=== PATIENT | female | born 1945 | race Caucasian/White ===

== ENCOUNTER 2018-06-15 23:08 | Emergency (ER) | payer MEDICARE ==
[2018-06-16 00:14] LABS: Absolute Lymphocytes (CBC) 1.6 K/uL (0.7-4.9); Absolute Monocytes 0.7 K/uL (0.1-1.3); Absolute Neutrophil 2.9 K/uL (1.8-8.0); Basophils % 0.9 % (0-1.3); Eosinophils % 2.7 % (0-4.4); Hematocrit 39.3 % (36.0-45.0); Lymphocytes % 30.2 % (15.3-44.8); MPV 7.3 fL (7.6-11.3); Monocytes % 12.6 % (3.3-12.3); Protime INR 1.03; RBC Red Blood Cell Count 4.31 M/uL (3.86-4.86)
[2018-06-16 00:28] LABS: BUN Blood Urea Nitrogen 13 mg/dL (7-18); Bicarbonate 28 mmol/L (21-32); Glucose Level 133 mg/dL (74-106); Magnesium 1.8 mg/dL (1.8-2.4); Potassium 3.8 mmol/L (3.5-5.1); Sodium Level 136 mmol/L (136-145); Troponin (Emerg Dept Use Only) < 0.02 ng/mL (0.0-0.045)
[2018-06-16 00:29] LABS: Urine Bacteria <20 /HPF (<20); Urine Culture Reflex Order NOT NEEDED; Urine RBC NONE SEEN /HPF (NONE SEEN)
[2018-06-16 00:44] LABS: Urine Blood NEGATIVE (NEG); Urine Glucose NEGATIVE (NEG); Urine Protein NEGATIVE (NEG); Urine Specific Gravity <1.005 (1.005-1.030)
--- NOTE | 2018-06-16 01:27 | EDPHYS ---
Physician Documentation [facility] Name: Carol Guillory Age: 72 yrs Sex: Female : 1945 Arrival Date: 06/15/2018 Time: 23:13 Bed 15 Private MD: Fabiano Campoverde C ED Physician Tomás Rader HPI: 06/15 23:59 This 72 yrs old Female presents to ER via Ambulatory with complaints of Blood snw Pressure Problem, Anxiety. 23:59 Onset: The symptoms/episode began/occurred gradually, and became persistent. Associated snw signs and symptoms: Pertinent positives: anxiety, blood pressure complaints, feels unease in her stomach that waxes and wanes. Modifying factors: The patient symptoms are alleviated by activity, reading, "not thinking about it". The patient has experienced similar episodes in the past. It is unknown whether or not the patient has recently seen a physician. Spouse passes away one year ago, a Grandson about six months ago, pt feels she is just having anxiety, pt is having a procedure 06/18/18 (D\\T\\C) that she is "dreading". Historical: - Allergies: 23:15 No Known Allergies; cc3 - Home Meds: 23:15 losartan 100 mg oral tab 1 tab every other day [Active]; pravastatin 20 mg oral tab 1 cc3 tab once daily [Active]; metformin 500 mg Oral tab 1 tab 2 times per day [Active]; metoprolol tartrate 25 mg Oral tab 1 tab 2 times per day [Active]; - PMHx: 23:15 Diabetes - NIDDM; Hypertension; cc3 - PSHx: 23:15 right hand surgery; cc3 - Immunization history:: Adult Immunizations up to date. - Social history:: Smoking status: Patient/guardian denies using tobacco, never smoked. - Ebola Screening: : No symptoms or risks identified at this time. ROS: 06/16 00:01 Constitutional: Negative for fever, chills, and weight loss, Eyes: Negative for injury, snw pain, redness, and discharge, ENT: Negative for injury, pain, and discharge, Neck: Negative for injury, pain, and swelling. Respiratory: Negative for shortness of breath, cough, wheezing, and pleuritic chest pain. Back: Negative for injury and pain, : Negative for injury, bleeding, discharge, and swelling, MS/Extremity: Negative for injury and deformity, Skin: Negative for injury, rash, and discoloration, Neuro: Negative for headache, weakness, numbness, tingling, and seizure. Cardiovascular: Positive for palpitations. Abdomen/GI: Positive for cramping and "unease". Exam: 00:02 Constitutional: This is a well developed, well nourished patient who is awake, alert, snw and in no acute distress. Head/Face: Normocephalic, atraumatic. Eyes: Pupils equal round and reactive to light, extra-ocular motions intact. Lids and lashes normal. Conjunctiva and sclera are non-icteric and not injected. Cornea within normal limits. Periorbital areas with no swelling, redness, or edema. ENT: Nares patent. No nasal discharge, no septal abnormalities noted. Tympanic membranes are normal and external auditory canals are clear. Oropharynx with no redness, swelling, or masses, exudates, or evidence of obstruction, uvula midline. Mucous membranes moist. Neck: Trachea midline, no thyromegaly or masses palpated, and no cervical lymphadenopathy. Supple, full range of motion without nuchal rigidity, or vertebral point tenderness. No Meningismus. Chest/axilla: Normal chest wall appearance and motion. Nontender with no deformity. No lesions are appreciated. Cardiovascular: Regular rate and rhythm with a normal S1 and S2. No gallops, murmurs, or rubs. Normal PMI, no JVD. No pulse deficits. Respiratory: Lungs have equal breath sounds bilaterally, clear to auscultation and percussion. No rales, rhonchi or wheezes noted. No increased work of breathing, no retractions or nasal flaring. Abdomen/GI: Soft, non-tender, with normal bowel sounds. No distension or tympany. No guarding or rebound. No evidence of tenderness throughout. Back: No spinal tenderness. No costovertebral tenderness. Full range of motion. Skin: Warm, dry with normal turgor. Normal color with no rashes, no lesions, and no evidence of cellulitis. MS/ Extremity: Pulses equal, no cyanosis. Neurovascular intact. Full, normal range of motion. Neuro: Awake and alert, GCS 15, oriented to person, place, time, and situation. Cranial nerves II-XII grossly intact. Motor strength 5/5 in all extremities. Sensory grossly intact. Cerebellar exam normal. Normal gait. Psych: Awake, alert, with orientation to person, place and time. Behavior, mood, and affect are within normal limits. Vital Signs: 06/15 23:15 BP 170 / 80; Pulse 79; Resp 17 S; Temp 98.8(O); Pulse Ox 99% on R/A; Weight 61.23 kg cc3 (R); Height 5 ft. 6 in. (167.64 cm) (R); 06/16 00:16 BP 167 / 82; Pulse 77; Resp 18 S; Pulse Ox 99% on R/A; cc3 01:20 BP 167 / 63; Pulse 81; Resp 17 S; Pulse Ox 99% on R/A; cc3 06/15 23:15 Body Mass Index 21.79 (61.23 kg, 167.64 cm) cc3 MDM: 06/15 23:37 Patient medically screened. snw 06/16 01:27 Data reviewed: vital signs, nurses notes. Data interpreted: Pulse oximetry: on room air snw is 99 %. Interpretation: normal. Counseling: I had a detailed discussion with the patient and/or guardian regarding: the historical points, exam findings, and any diagnostic results supporting the discharge/admit diagnosis, the presence of at least one elevated blood pressure reading (>120/80) during this emergency department visit, lab results, radiology results, the need for outpatient follow up, to return to the emergency department if symptoms worsen or persist or if there are any questions or concerns that arise at home. Special discussion: Based on the patient's history, exam, and Dx evaluation, there is no indication for emergent intervention or inpatient Tx. It is understood by the patient/guardian that if the Sx's persist or worsen they need to return immediately for re-evaluation. Based on the history and exam findings, there is no indication for further emergent testing or inpatient evaluation. I discussed with the patient/guardian the need to see the primary care provider for further evaluation of the symptoms. 06/15 23:29 Order name: Basic Metabolic Panel; Complete Time: 00:32 snw 06/15 23:29 Order name: CBC with Diff; Complete Time: 00:20 snw 06/15 23:29 Order name: Magnesium; Complete Time: 00:32 snw 06/15 23:29 Order name: PT-INR; Complete Time: 00:20 snw 06/15 23:29 Order name: Troponin (emerg Dept Use Only); Complete Time: 00:32 snw 06/15 23:29 Order name: Urine Microscopic Only; Complete Time: 00:32 snw 06/15 23:29 Order name: XRAY Chest (1 view) snw 06/15 23:29 Order name: EKG; Complete Time: 23:30 snw 06/15 23:29 Order name: Cardiac monitoring; Complete Time: 23:33 snw 06/15 23:29 Order name: EKG - Nurse/Tech; Complete Time: 00:18 snw 06/15 23:29 Order name: IV Saline Lock; Complete Time: 00:01 snw 06/15 23:29 Order name: Labs collected and sent; Complete Time: 00:01 snw 06/15 23:29 Order name: O2 Per Protocol; Complete Time: 23:34 snw 06/16 00:34 Order name: Urine Dipstick--Ancillary (enter results); Complete Time: 00:46 mw2 06/15 23:29 Order name: O2 Sat Monitoring; Complete Time: 23:34 snw Administered Medications: No medications were administered Disposition: 02:28 Co-signature as Attending Physician, Tomás Rader MD. garret Disposition: 06/16/18 01:26 Discharged to Home. Impression: Essential (primary) hypertension, Anxiety disorder, unspecified. - Condition is Stable. - Discharge Instructions: Hypertension, Generalized Anxiety Disorder, DASH Eating Plan, Managing Your Hypertension. - Medication Reconciliation Form, Thank You Letter, Antibiotic Education, Prescription Opioid Use form. - Follow up: Fabiano Campoverde MD; When: 1 week; Reason: Recheck today's complaints, Continuance of care, Re-evaluation by your physician. Follow up: Emergency Department; When: As needed; Reason: Worsening of condition. Signatures: Dispatcher [employer] Tomás Fonseca MD MD pkMena Heard, HAIRSPRING VIBRATOR-C HAIRSPRING VIBRATOR-Csnw Lexy Loyola cc3 Corrections: (The following items were deleted from the chart) 00:02 06/15 23:59 Spouse passes away one year ago, a Grandson about six months ago, pt snw feels she is just having anxiety. snw 12/24 01:44 01:26 06/16/2018 01:26 Discharged to Home. Impression: Essential (primary) cc3 hypertension; Anxiety disorder, unspecified. Condition is Stable. Forms are Medication Reconciliation Form, Thank You Letter, Antibiotic Education, Prescription Opioid Use. Follow up: A Campoverde; When: 1 week; Reason: Recheck today's complaints, Continuance of care, Re-evaluation by your physician. Follow up: Emergency Department; When: As needed; Reason: Worsening of condition. snw
--- NOTE | 2018-06-16 01:27 | ER ---
Nurse's Notes [facility] Name: Carol Guillory Age: 72 yrs Sex: Female : 1945 Arrival Date: 06/15/2018 Time: 23:13 Bed 15 Private MD: Fabiano Campoverde C Diagnosis: Essential (primary) hypertension;Anxiety disorder, unspecified Presentation: 06/15 23:15 Presenting complaint: Patient states: she feels anxious about her undescribable gastric cc3 upset just above her umbilical area that's been intermittently going on since the past week. Transition of care: patient was not received from another setting of care. Onset of symptoms was June 15, 2018. Risk Assessment: Do you want to hurt yourself or someone else? Patient reports no desire to harm self or others. Initial Sepsis Screen: Does the patient meet any 2 criteria? No. Patient's initial sepsis screen is negative. Does the patient have a suspected source of infection? No. Patient's initial sepsis screen is negative. Care prior to arrival: None. 23:15 Method Of Arrival: Ambulatory cc3 23:15 Acuity: MARCELA 3 cc3 Triage Assessment: 23:15 General: Appears in no apparent distress. comfortable, Behavior is calm, cooperative, cc3 appropriate for age. Pain: Denies pain. EENT: No signs and/or symptoms were reported regarding the EENT system. Neuro: Level of Consciousness is awake, alert, obeys commands, Oriented to person, place, time, situation, Appropriate for age. Cardiovascular: Denies chest pain, Patient's skin is warm and dry. Respiratory: Airway is patent Respiratory effort is even, unlabored, Respiratory pattern is regular, symmetrical. GI: Abdomen is round non-distended. : No signs and/or symptoms were reported regarding the genitourinary system. Derm: No signs and/or symptoms reported regarding the dermatologic system. Musculoskeletal: Circulation, motion, and sensation intact. Range of motion: intact in all extremities. Historical: - Allergies: 23:15 No Known Allergies; cc3 - Home Meds: 23:15 losartan 100 mg oral tab 1 tab every other day [Active]; pravastatin 20 mg oral tab 1 cc3 tab once daily [Active]; metformin 500 mg Oral tab 1 tab 2 times per day [Active]; metoprolol tartrate 25 mg Oral tab 1 tab 2 times per day [Active]; - PMHx: 23:15 Diabetes - NIDDM; Hypertension; cc3 - PSHx: 23:15 right hand surgery; cc3 - Immunization history:: Adult Immunizations up to date. - Social history:: Smoking status: Patient/guardian denies using tobacco, never smoked. - Ebola Screening: : No symptoms or risks identified at this time. Screenin:15 Abuse screen: Denies threats or abuse. Denies injuries from another. Nutritional cc3 screening: No deficits noted. Tuberculosis screening: No symptoms or risk factors identified. Fall Risk Ambulatory Aid- None/Bed Rest/Nurse Assist (0 pts). Gait- Normal/Bed Rest/Wheelchair (0 pts) Mental Status- Oriented to own ability (0 pts). Assessment: 23:15 General: see triage assessment. cc3 06/16 00:20 Reassessment: Patient appears in no apparent distress at this time. Patient and/or cc3 family updated on plan of care and expected duration. Pain level reassessed. Patient is alert, oriented x 3, equal unlabored respirations, skin warm/dry/pink. 01:40 Reassessment: Patient appears in no apparent distress at this time. Patient and/or cc3 family updated on plan of care and expected duration. Pain level reassessed. Patient is alert, oriented x 3, equal unlabored respirations, skin warm/dry/pink. JORDEN San discharged home the patient, no prescription given. IV cannula removed and patient left ER vitally stable and ambulatory. Vital Signs: 06/15 23:15 BP 170 / 80; Pulse 79; Resp 17 S; Temp 98.8(O); Pulse Ox 99% on R/A; Weight 61.23 kg cc3 (R); Height 5 ft. 6 in. (167.64 cm) (R); 06/16 00:16 BP 167 / 82; Pulse 77; Resp 18 S; Pulse Ox 99% on R/A; cc3 01:20 BP 167 / 63; Pulse 81; Resp 17 S; Pulse Ox 99% on R/A; cc3 06/15 23:15 Body Mass Index 21.79 (61.23 kg, 167.64 cm) 3 ED Course: 06/15 23:13 Patient arrived in ED. am2 23:13 Fabiano Campoverde MD is Private Physician. am2 23:14 Lexy Loyola is Primary Nurse. cc3 23:15 Arm band placed on right wrist. cc3 23:15 Patient has correct armband on for positive identification. Bed in low position. Call cc3 light in reach. Side rails up X 1. fitting room operator on. Pulse ox on. NIBP on. 23:23 Mena Shankar FNP-C is PHCP. snw 23:23 Tomás Rader MD is Attending Physician. snw 23:38 Triage completed. cc3 23:50 Inserted saline lock: 20 gauge in right antecubital area, using aseptic technique. cc3 Blood collected. 06/16 00:04 Radiology exam delayed due to IV insertion attempt and/or patient not having kw appropriate IV at this time. 00:04 X-ray completed. Portable x-ray completed in exam room. Patient tolerated procedure kw well. 00:10 XRAY Chest (1 view) In Process Unspecified. EDMS 01:25 Fabiano Campoverde MD is Referral Physician. snw 01:29 IV discontinued, intact, bleeding controlled, No redness/swelling at site. Pressure gm dressing applied. 01:40 No provider procedures requiring assistance completed. cc3 01:40 IV discontinued, intact, bleeding controlled, No redness/swelling at site. Pressure cc3 dressing applied. Administered Medications: No medications were administered Outcome: 01:26 Discharge ordered by . snw 01:40 Discharged to home ambulatory. cc3 01:40 Condition: stable 01:40 Discharge instructions given to patient, Instructed on discharge instructions, follow up and referral plans. Demonstrated understanding of instructions, follow-up care. 01:44 Patient left the ED. cc3 Signatures: Dispatcher [employer] EDMS Mena Shankar FNP-C MARGARINE MAKER-CsnCharlette Palumbo Amanda am2 Lexy Loyola cc3 Dionne Marte gm
--- NOTE | 2018-06-16 07:54 | EKG ---
Test Date: 2018-06-16 Test Time: 00:08:08 Reception Clerk: TACO MEASUREMENT RESULTS: Intervals: Rate: 70 IL: 142 QRSD: 78 QT: 392 QTc: 423 Gatzke: P: 76 IL: 142 QRS: 28 T: 47 INTERPRETIVE STATEMENTS: Normal sinus rhythm Normal ECG Compared to ECG 01/14/2003 13:48:00 ST (T wave) deviation no longer present Electronically Signed On 06-16-18 07:53:49 ORGANIZATIONAL EFFECTIVENESS CONSULTANT by Jose A Brennan
--- NOTE | 2018-06-16 08:08 | RAD REPORT ---
EXAM DESCRIPTION: RAD - Chest Single View - 06/16/2018 12:18 am CLINICAL HISTORY: Cough and congestion COMPARISON: None. TECHNIQUE: AP portable chest image was obtained 2359 hours . FINDINGS: No focal lung parenchymal mass or infiltrate. Failure and volume overload are not suspecte d. Interstitial markings are mildly prominent suspected to be baseline. Heart and vasculature are nor mal. No measurable pleural effusion and no pneumothorax. No acute bony abnormality seen. No acute aor tic findings suspected. IMPRESSION: No focal lung parenchymal process. Mild prominence of the interstitial markings favored to be baseline. Interstitial edema or infiltrate are less likely.
== END 2018-06-16 01:44 | disposition home or self-care (01) ==
LOC: ER 23:08
DX: I10 Essential (primary) hypertension (principal); F41.9 Anxiety disorder, unspecified; E11.9 Type 2 diabetes mellitus without complications; Z79.84 Long term (current) use of oral hypoglycemic drugs; Z79.899 Other long term (current) drug therapy
CPT/HCPCS: 36415; 71045; 80048; 81003; 81015; 83735; 84484; 85025; 85610; 93005; 99284

== ENCOUNTER 2018-06-18 06:23 | Day surgery (SDC) | payer MEDICARE ==
[2018-06-18] MEDS ORDERED: FENTANYL CITR 100 MCG/2 ML ONE (07:04)
[2018-06-18] MEDS ORDERED: MIDAZOLAM HCL 2 MG/2 ML INJ ONE (07:05)
[2018-06-18] MEDS ORDERED: PROPOFOL 200 MG/20 ML VIAL IV ONE ×2 (07:05→08:23)
[2018-06-18] MEDS ORDERED: LIDOCAINE 1% MPF 2 ML AMPULE ONE (07:07)
[2018-06-18] MEDS ORDERED: NA CHLORIDE 0.9% 1,000 ML ONE ×2 (07:07→07:14)
[2018-06-18] MEDS ORDERED: LIDOCAINE 1.5% W/EPI AMP 5 ML ONE (07:32)
--- NOTE | 2018-06-18 11:36 | OP ---
Date of Procedure: 06/18/2018 Surgeon: Sepideh Howard MD Preoperative Diagnosis: Postmenopausal bleeding. Postoperative Diagnoses: Postmenopausal bleeding and endometrial polyps x3. Procedures Performed: Operative hysteroscopy, polypectomy with scissors x3 and dilation and curettag e. Anesthesia: MAC plus paracervical block. Specimens: Polyps and scant endometrial curettings. Complications: None. Drains: None. Condition: Stable. No assistance. Estimated Blood Loss: Minimal. Findings: Smallest polyp in the posterior wall close to the internal os, left lateral wall polyp and the largest at the junction of the fundus in the posterior wall. All polyps were removed completely . Endometrium appeared to be unremarkable and scant. She has significant posterior wall defect, stage I with point Bp +1, generalized 4 cm. The patient is a 72-year-old with postmenopausal bleeding. Ultrasound showed thickened endometrium. She was consented for a cavity evaluation and sampling. Description Of Procedure: After being re-consented today, she was taken to the OR, placed in a supin e fashion on the operating table and MAC was given, placed in the dorsal lithotomy position using All en stirrups. After time-out was done, pelvic exam performed. Pop-Q as above. Uterus small and with traction, point C top of the uterus came down to -2. This anterior lip was injected with 1.5% lidocaine mixed with 1:100,000 epinephrine 5 cc. Then, at 4 and 8 o'clock positions of the cervical vaginal junction 5 cc each was injected. Two Allis clamps w ere placed on the anterior lip. Prep x3 with Betadine was done. A diagnostic SlimLine scope was ollie roel through the cervical canal and traversed into the uterine cavity under direct visualization with normal saline and 30-degree lens. Polyps were seen as dictated above. The diagnostic sheath was aubrey nged to an operative sheath. Scissors were placed through this and the base of the polyp was cut on the lowest 1. This was retrieved with the help of a polyp forceps, then the second polyp was cut at its base. This was the thickest and was attached on the wider base to the myometrium. Once the enti re polyp was released, it was retrieved with the polyp forceps as before. The third one was cut as w ell. This was most difficult 1 to release due to the position of the attachment. Once the release w as done, the last piece of it had to be released with the help of the polyp graspers through the scop e and once this was detached, then the entire polyp was retrieved. This is the largest, about 1.5 cm . There is no irregularity in the lining of the endometrium. Both tubal ostia were visualized. The cavity was well visualized and pictures taken. Scope removed. Endometrial curettings performed wit h a #2 curette. All the instruments were removed. Instrument, needle, and sponge counts were done a nd were correct at the end of the case. The patient tolerated the procedure well. She was recovered from anesthesia in the OR and taken to [facility] Day Surgery. She will follow up with me in 1 week. GREER/VELVET Voice ID: [id number] Report ID: [id number]
== END 2018-06-18 09:21 | disposition home or self-care (01) ==
LOC: OR 06:23
PROVIDERS: ATTEND Obstetrics & Gynecology
PROC: 0UDB7ZX Extraction of Endometrium, Via Natural or Artificial Opening, Diagnostic (ICD-10-PCS; 2018-06-18)
PROC: 0UB98ZX Excision of Uterus, Via Natural or Artificial Opening Endoscopic, Diagnostic (ICD-10-PCS; principal; 2018-06-18 07:30)
DX: N84.0 Polyp of corpus uteri (principal); N95.0 Postmenopausal bleeding; E11.9 Type 2 diabetes mellitus without complications; E78.00 Pure hypercholesterolemia, unspecified; I10 Essential (primary) hypertension; N32.81 Overactive bladder; Z79.82 Long term (current) use of aspirin; Z79.84 Long term (current) use of oral hypoglycemic drugs; Z79.899 Other long term (current) drug therapy
CPT/HCPCS: 58558; 82962; 88305; J2001 ×2; J2250; J2704 ×2; J3010; J7030 ×2

== ENCOUNTER 2018-06-22 06:41 | Emergency (ER) | payer MEDICARE ==
[2018-06-22 08:02] LABS: Absolute Lymphocytes (CBC) 1.1 K/uL (0.7-4.9); Absolute Monocytes 0.6 K/uL (0.1-1.3); Absolute Neutrophil 7.6 K/uL (1.8-8.0); Basophils % 0.3 % (0-1.3); Eosinophils % 1.3 % (0-4.4); Hematocrit 40.7 % (36.0-45.0); Lymphocytes % 11.9 % (15.3-44.8); MPV 7.2 fL (7.6-11.3); Monocytes % 6.8 % (3.3-12.3); RBC Red Blood Cell Count 4.48 M/uL (3.86-4.86)
[2018-06-22 08:13] LABS: Potassium 3.9 mmol/L (3.5-5.1)
--- NOTE | 2018-06-22 09:08 | EDPHYS ---
Physician Documentation [facility] Name: Carol Guillory Age: 72 yrs Sex: Female : 1945 Arrival Date: 06/22/2018 Time: 06:44 Bed 7 Private MD: Fabiano Campoverde C ED Physician José Miguel Dao HPI: 06/22 07:22 This 72 yrs old Female presents to ER via Ambulatory with complaints of rn Vaginal Bleeding, D\T\C ON SATURDAY. 07:22 The patient presents with vaginal bleeding that is light, with clots. Onset: The rn symptoms/episode began/occurred yesterday. Modifying factors: The symptoms are alleviated by nothing, the symptoms are aggravated by nothing. Severity of symptoms: At their worst the symptoms were mild, in the emergency department the symptoms have improved. The patient has not experienced similar symptoms in the past. The patient has been recently seen by a physician:. Reports had D\T\C performed on 06/18 for vaginal spotting, due to get results tomorrow, bleeding had decreased, had resumed her aspirin, then yesterday had some increased vaginal bleeding, small clots noticed, then this AM when got out of bed had a gush of blood, now improved once again, only has a liner. No dizziness/sob/chest pain/syncope. . Historical: - Allergies: 07:03 No Known Allergies; lp1 - Home Meds: 07:03 losartan 100 mg Oral tab 1 tab Every other day [Active]; metoprolol tartrate 25 mg Oral lp1 tab 1 tab 2 times per day [Active]; pravastatin 20 mg Oral tab 1 tab once daily [Active]; metformin 500 mg Oral tab 1 tab 2 times per day [Active]; - PMHx: 07:03 Diabetes - NIDDM; Hypertension; lp1 - PSHx: 07:03 D \T\ C; lp1 - Immunization history:: Adult Immunizations up to date. - Social history:: Smoking status: Patient/guardian denies using tobacco. - Ebola Screening: : No symptoms or risks identified at this time. - Family history:: not pertinent. - Hospitalizations: : No recent hospitalization is reported. ROS: 07:22 Positive for vaginal bleeding, Negative for urinary symptoms, urinary frequency, rn pelvic pain, flank pain, burning with urination, difficulty urinating, bladder incontinence. 07:22 Constitutional: Negative for fever, chills, and weight loss, Cardiovascular: Negative for chest pain, palpitations, and edema, Respiratory: Negative for shortness of breath, cough, wheezing, and pleuritic chest pain, Abdomen/GI: Negative for abdominal pain, nausea, vomiting, diarrhea, and constipation, Back: Negative for injury and pain, Neuro: Negative for headache, weakness, numbness, tingling, and seizure. Exam: 07:22 Constitutional: This is a well developed, well nourished patient who is awake, alert, rn and in no acute distress. Eyes: No paleness of conjunctiva ENT: MMM Abdomen/GI: soft, non-tender, non-distended MS/ Extremity: Pulses equal, no cyanosis. Neurovascular intact. Full, normal range of motion. Equal circumference. Neuro: Awake and alert, GCS 15, oriented to person, place, time, and situation. Vital Signs: 07:00 BP 164 / 68; Pulse 87; Resp 18; Temp 98.6(O); Pulse Ox 99% on R/A; Weight 61.23 kg; lp1 Height 5 ft. 6 in. (167.64 cm); Pain 0/10; 08:10 BP 135 / 56; Pulse 88; Resp 17; Pulse Ox 99% on R/A; sg 09:05 BP 132 / 60; Pulse 87; Resp 17; Pulse Ox 100% on R/A; sg 07:00 Body Mass Index 21.79 (61.23 kg, 167.64 cm) lp1 MDM: 06:57 Patient medically screened. rn 09:05 Differential diagnosis: malignancy, post-procedural bleeding after polyp removal. Data rn reviewed: vital signs, nurses notes, lab test result(s), and as a result, I will discharge patient. Counseling: I had a detailed discussion with the patient and/or guardian regarding: the historical points, exam findings, and any diagnostic results supporting the discharge/admit diagnosis, lab results, the need for outpatient follow up, to return to the emergency department if symptoms worsen or persist or if there are any questions or concerns that arise at home. Special discussion: I discussed with the patient/guardian in detail that at this point there is no indication for admission to the hospital. It is understood, however, that if the symptoms persist or worsen the patient needs to return immediately for re-evaluation. ED course: Patient now to bathroom a few times, no longer bleeding, contacted Dr. Howard, ok to go home as normal H/H and no longer bleeding. Biopsy results are negative for malignancy. . 06/22 07:08 Order name: CBC with Diff; Complete Time: 08:53 rn 06/22 07:08 Order name: BMP; Complete Time: 08:53 rn 06/22 07:08 Order name: Type And Screen; Complete Time: 08:53 rn 06/22 08:43 Order name: ABO/RH no charge; Complete Time: 08:53 EDMS Administered Medications: No medications were administered Disposition: 06/22/18 09:07 Discharged to Home. Impression: Abnormal uterine and vaginal bleeding, unspecified. - Condition is Stable. - Discharge Instructions: Abnormal Uterine Bleeding. - Medication Reconciliation Form, Thank You Letter, Antibiotic Education, Prescription Opioid Use form. - Follow up: Sepideh Howard MD; When: As needed; Reason: Recheck today's complaints, Re-evaluation by your physician. - Problem is new. - Symptoms have improved. Signatures: Dispatcher [employer] EDMS Kyle Caba RN RN sg José Miguel Dao MD MD rn Pena, Laura, RN RN lp1 Corrections: (The following items were deleted from the chart) 09:16 09:07 06/22/2018 09:07 Discharged to Home. Impression: Abnormal uterine and vaginal sg bleeding, unspecified. Condition is Stable. Forms are Medication Reconciliation Form, Thank You Letter, Antibiotic Education, Prescription Opioid Use. Follow up: Sepideh Howard; When: As needed; Reason: Recheck today's complaints, Re-evaluation by your physician. Problem is new. Symptoms have improved. rn
--- NOTE | 2018-06-22 09:08 | ER ---
Nurse's Notes [facility] Name: Carol Guillory Age: 72 yrs Sex: Female : 1945 Arrival Date: 06/22/2018 Time: 06:44 Bed 7 Private MD: Fabiano Campoverde C Diagnosis: Abnormal uterine and vaginal bleeding, unspecified Presentation: 06/22 06:58 Presenting complaint: Patient states: Had D\T\C procedure by Dr. Howard on 06/18 for lp1 vaginal bleeding; States this morning, large about of vaginal bleeding; Has not had follow-up for results from procedure. Transition of care: patient was not received from another setting of care. Onset of symptoms was June 22, 2018. Risk Assessment: Do you want to hurt yourself or someone else? Patient reports no desire to harm self or others. Initial Sepsis Screen: Does the patient meet any 2 criteria? No. Patient's initial sepsis screen is negative. Does the patient have a suspected source of infection? No. Patient's initial sepsis screen is negative. Care prior to arrival: None. 06:58 Method Of Arrival: Ambulatory lp1 06:58 Acuity: MARCELA 3 lp1 Historical: - Allergies: 07:03 No Known Allergies; lp1 - Home Meds: 07:03 losartan 100 mg Oral tab 1 tab Every other day [Active]; metoprolol tartrate 25 mg Oral lp1 tab 1 tab 2 times per day [Active]; pravastatin 20 mg Oral tab 1 tab once daily [Active]; metformin 500 mg Oral tab 1 tab 2 times per day [Active]; - PMHx: 07:03 Diabetes - NIDDM; Hypertension; lp1 - PSHx: 07:03 D \T\ C; lp1 - Immunization history:: Adult Immunizations up to date. - Social history:: Smoking status: Patient/guardian denies using tobacco. - Ebola Screening: : No symptoms or risks identified at this time. - Family history:: not pertinent. - Hospitalizations: : No recent hospitalization is reported. Screenin:03 Abuse screen: Denies threats or abuse. Denies injuries from another. Nutritional lp1 screening: No deficits noted. Tuberculosis screening: No symptoms or risk factors identified. Fall Risk None identified. Assessment: 07:15 General: Appears in no apparent distress. comfortable, well groomed, well developed, sg well nourished, Behavior is calm, cooperative, appropriate for age. Pain: Complains of pain in suprapubic area Quality of pain is described as crampy. Neuro: No deficits noted. Cardiovascular: Heart tones S1 S2 present Capillary refill is brisk in bilateral fingers Patient's skin is warm and dry. Chest pain is denied. Respiratory: Airway is patent Respiratory effort is even, unlabored, Respiratory pattern is regular, symmetrical. GI: No signs and/or symptoms were reported involving the gastrointestinal system. : Vaginal discharge is bloody, per the pt Reports vaginal bleeding that is bright red, moderate flow. EENT: No signs and/or symptoms were reported regarding the EENT system. Derm: Skin is pale, Skin temperature is warm. Musculoskeletal: No signs and/or symptoms reported regarding the musculoskeletal system. 08:30 Reassessment: Patient appears in no apparent distress at this time. Patient and/or sg family updated on plan of care and expected duration. Pain level reassessed. Patient is alert, oriented x 3, equal unlabored respirations, skin warm/dry/pink. pt family remains at bedside, pt family requesting a snack, pt family given ryan crackers, pt to remain NPO until further notice, pt and pt family stated understanding. Vital Signs: 07:00 BP 164 / 68; Pulse 87; Resp 18; Temp 98.6(O); Pulse Ox 99% on R/A; Weight 61.23 kg; lp1 Height 5 ft. 6 in. (167.64 cm); Pain 0/10; 08:10 BP 135 / 56; Pulse 88; Resp 17; Pulse Ox 99% on R/A; sg 09:05 BP 132 / 60; Pulse 87; Resp 17; Pulse Ox 100% on R/A; sg 07:00 Body Mass Index 21.79 (61.23 kg, 167.64 cm) lp1 ED Course: 06:44 Patient arrived in ED. es 06:45 Fabiano Campoverde MD is Private Physician. es 06:57 José Miguel Dao MD is Attending Physician. rn 07:00 Triage completed. lp1 07:00 Arm band placed on. lp1 07:15 Patient has correct armband on for positive identification. Bed in low position. Call sg light in reach. Side rails up X2. Adult w/ patient. monitor and storage bin tender on. Pulse ox on. NIBP on. Warm blanket given. Head of bed elevated. 07:41 Kyle Caba, RN is Primary Nurse. sg 07:41 Initial lab(s) drawn, by ED staff, sent to lab. T\T\S collected, blood band applied to sg patient. Inserted saline lock: 20 gauge in right antecubital area, using aseptic technique. Blood collected. 08:09 Awaiting lab results. sg 09:07 Sepideh Howard MD is Referral Physician. rn 09:12 No provider procedures requiring assistance completed. IV discontinued, intact, sg bleeding controlled, No redness/swelling at site. Pressure dressing applied. Administered Medications: No medications were administered Outcome: 09:07 Discharge ordered by . rn 09:12 Discharged to home ambulatory, with family. sg 09:12 Condition: good 09:12 Discharge instructions given to patient, family, Instructed on discharge instructions, follow up and referral plans. safety practices, Demonstrated understanding of instructions, follow-up care. 09:16 Patient left the ED. sg Signatures: Kyle Caba, RN RN Priscila Harris Roman, MD MD rn Pena, Laura, RN RN lp1
== END 2018-06-22 09:16 | disposition home or self-care (01) ==
LOC: ER 06:41
DX: N93.9 Abnormal uterine and vaginal bleeding, unspecified (principal); I10 Essential (primary) hypertension; E11.9 Type 2 diabetes mellitus without complications
CPT/HCPCS: 36415; 80048; 85025; 86850; 86900; 86901; 99284

== ENCOUNTER 2020-12-13 12:41 | Observation (INO) | payer MEDICARE, OTHER ==
[2020-12-13 13:18] LABS: Absolute Lymphocytes (CBC) 1.2 K/uL (0.7-4.9); Basophils % 0.5 % (0-1.3); Hematocrit 42.9 % (36.0-45.0); Lymphocytes % 13.8 % (15.3-44.8); MPV 7.4 fL (7.6-11.3); RBC Red Blood Cell Count 4.73 M/uL (3.86-4.86)
[2020-12-13 13:20] LABS: Protime INR 1.06
[2020-12-13 13:39] LABS: ALT/SGPT 28 U/L (12-78); AST/SGOT 22 U/L (15-37); Albumin 3.9 g/dL (3.4-5.0); Alkaline Phosphatase 77 U/L (45-117); BUN Blood Urea Nitrogen 20 mg/dL (7-18); Bicarbonate 31 mmol/L (21-32); Bilirubin Direct 0.1 mg/dL (0-0.2); Bilirubin Total 0.5 mg/dL (0.2-1.0); Glucose Level 173 mg/dL (74-106); NT PRO-BNP 592 pg/mL (<125); Potassium 4.2 mmol/L (3.5-5.1); Protein, Total 7.7 g/dL (6.4-8.2); Sodium Level 135 mmol/L (136-145); Troponin (Emerg Dept Use Only) < 0.02 ng/mL (0.0-0.045)
--- NOTE | 2020-12-13 14:14 | RAD REPORT ---
EXAM DESCRIPTION: RAD - Chest Single View - 12/13/2020 1:17 pm CLINICAL HISTORY: CHEST PAIN COMPARISON: Portable May 2018 TECHNIQUE: AP portable chest image was obtained 12/13/2020 1:17 pm . FINDINGS: No peripheral consolidation or large mass lesions seen. A 7 millimeter rounded nodular den sity in the upper right lung field is present new from the comparison. This is relatively dense and i s favored to be a granuloma. Interstitial markings are prominent but not clearly different. Chronic d isease can mask early edema or infiltrate. Trachea is midline and hilar regions are normal range and stable. Heart size is normal. No vascular engorgement. No measurable pleural effusion and no pneumoth orax. No acute bony abnormality seen. No acute aortic findings suspected. IMPRESSION: No acute cardiopulmonary process suspected. 7 mm nodular density upper right lung field is favored to be granuloma but he is new from 2018. Seria l chest imaging can be utilized to assure stability with the initial follow-up in 3-4 months. Chronic interstitial lung disease similar to comparison. This can potentially mask early edema or inf iltrate.
--- NOTE | 2020-12-13 14:27 | EDPHYS ---
Physician Documentation [facility] Name: Carol Guillory Age: 75 yrs Sex: Female : 1945 Arrival Date: 12/13/2020 Time: 12:44 Bed 19 Private MD: Igor [facility] ED Physician Carlos Wisdom HPI: 12/13 13:28 This 75 yrs old Female presents to ER via Ambulatory with complaints of Chest kb Pain, Headache. 13:28 The patient has elevated blood pressure and discovered this at a physician's office, kb and sent to the emergency department for evaluation. Onset: The symptoms/episode began/occurred yesterday. Associated signs and symptoms: Pertinent positives: headache, "chest pressure, not pain". Severity of symptoms: At its worst the blood pressure was 234 mm Hg, in the emergency department the blood pressure is improved, 178 mm Hg. The patient has not experienced similar symptoms in the past. The patient has been recently seen by a physician: the patient's primary care provider, yesterday. Pt reports she went for her first visit with Dr Costa yesterday and her blood pressure was high. States she was told to check it routinely at home. Last night systolic was 150 and today the systolic has been 170. States she has some chest pressure and a headache that she has been thinking was sinuses. States she has pressure on her chest, but no actual pain. Pt has been taking the same blood pressure medications for years without change. States she normally doesn't check her bp at home. Also reports a history of panic attacks when her nephews are coming to stay because they are small and she is worried the won't be looked after well. States they are coming and she has been anxious about that. . Historical: - Allergies: 12:59 No Known Allergies; iw - Home Meds: 12:58 losartan 100 mg Oral tab 1 tab twice a day [Active]; atenolol 25 mg Oral tab 1 tab 2 iw times per day [Active]; metformin 500 mg Oral Tb24 1 tab once daily [Active]; pravastatin 20 mg oral tab 1 tab once daily [Active]; levothyroxine 50 mcg tab 1 tab once daily [Active]; - PMHx: 12:58 Diabetes - NIDDM; Hypertension; Hypothyroidism; iw - PSHx: 12:58 D \\T\\ C; iw 12:59 cervical polyps removed; iw - Immunization history:: Client reports receiving the 2nd dose of the Covid vaccine. - Social history:: Smoking status: Patient denies any tobacco usage or history of. ROS: 13:28 Constitutional: Negative for fever, chills, and weight loss. kb 13:28 Cardiovascular: Positive for chest pressure. 13:28 Neuro: Positive for headache. 13:28 All other systems are negative. 13:28 Psych: Positive for anxiety. kb Exam: 13:28 Constitutional: This is a well developed, well nourished patient who is awake, alert, kb and in no acute distress. Head/Face: Normocephalic, atraumatic. ENT: Moist Mucous membranes Cardiovascular: Regular rate and rhythm with a normal S1 and S2. No gallops, murmurs, or rubs. No pulse deficits. Respiratory: Respirations even and unlabored. No increased work of breathing, no retractions or nasal flaring. Abdomen/GI: Soft, non-tender. No distention Skin: Warm, dry with normal turgor. Normal color. MS/ Extremity: Pulses equal, no cyanosis. Neurovascular intact. Full, normal range of motion. Neuro: Awake and alert, GCS 15, oriented to person, place, time, and situation. Moves all extremities. Normal gait. Psych: Awake, alert, with orientation to person, place and time. Behavior, mood, and affect are within normal limits. 13:38 ECG was reviewed by the Attending Physician. kb Vital Signs: 12:53 BP 182 / 78; Pulse 72; Resp 16; Temp 98.5; Pulse Ox 98% on R/A; Weight 54.88 kg; Height iw 5 ft. 6 in. (167.64 cm); 13:30 BP 134 / 67; Pulse 66; Resp 17; Pulse Ox 98% on R/A; kg 13:45 BP 161 / 89; Pulse 68; Resp 20; Pulse Ox 97% on R/A; kg 14:00 BP 133 / 57; Pulse 62; Resp 20; Pulse Ox 96% ; kg 14:30 BP 150 / 62; Pulse 60; Resp 20; Pulse Ox 97% on R/A; kg 14:45 BP 107 / 93; Pulse 66; Resp 20; Pulse Ox 98% on R/A; kg 15:30 BP 179 / 78; Pulse 71; Resp 18; Pulse Ox 99% ; kg 16:00 BP 144 / 88; Pulse 70; Resp 20; Pulse Ox 98% ; kg 16:50 BP 153 / 77; Pulse 70; Resp 18; Pulse Ox 98% on R/A; kg 12:53 Body Mass Index 19.53 (54.88 kg, 167.64 cm) iw MDM: 13:00 Patient medically screened. 13:37 Data reviewed: vital signs, nurses notes. Data interpreted: Pulse oximetry: on room air kb is 98 %. Interpretation: normal. 14:21 Counseling: I had a detailed discussion with the patient and/or guardian regarding: the kb historical points, exam findings, and any diagnostic results supporting the discharge/admit diagnosis, lab results, radiology results, the need for further work-up and treatment in the hospital. 14:26 Physician consultation: Ra Rao DO was contacted at 14:26, regarding admission, kb to the telemetry unit. patient's condition, and will see patient in ED, shortly. 12/13 13:00 Order name: Basic Metabolic Panel 12/13 13:00 Order name: CBC with Diff 12/13 13:00 Order name: LFT's 12/13 13:00 Order name: Magnesium 12/13 13:00 Order name: NT PRO-BNP 12/13 13:00 Order name: PT-INR 12/13 13:00 Order name: Troponin (emerg Dept Use Only) 12/13 13:25 Order name: Protime (+INR); Complete Time: 13:38 EDOK 12/13 13:37 Order name: CBC with Automated Diff; Complete Time: 13:38 EDMS 12/13 13:39 Order name: Basic Metabolic Panel; Complete Time: 13:41 EDMS 12/13 13:39 Order name: Liver (Hepatic) Function; Complete Time: 13:41 EDMS 12/13 13:39 Order name: Troponin (Emerg Dept Use Only); Complete Time: 13:41 EDMS 12/13 13:39 Order name: NT PRO-BNP; Complete Time: 13:41 EDMS 12/13 13:39 Order name: Magnesium; Complete Time: 13:41 EDOK 12/13 13:00 Order name: XRAY Chest (1 view) 12/13 13:00 Order name: EKG; Complete Time: 13:01 kb 12/13 13:00 Order name: Cardiac monitoring; Complete Time: 13:34 kb 12/13 13:00 Order name: EKG - Nurse/Tech; Complete Time: 13:34 kb 12/13 13:00 Order name: IV Saline Lock; Complete Time: 13:21 kb 12/13 13:00 Order name: Labs collected and sent; Complete Time: 13:21 kb 12/13 13:00 Order name: O2 Per Protocol; Complete Time: 13:21 kb 12/13 13:00 Order name: O2 Sat Monitoring; Complete Time: 13:21 kb 12/13 14:15 Order name: RAD; Complete Time: 14:17 EDMS EC:38 Rate is 65 beats/min. Rhythm is regular. QRS [place] is Normal. MS interval is normal at kb 140 msec. QRS interval is normal at 74 msec. QT interval is normal at 396 msec. Administered Medications: 14:32 Drug: Aspirin Chewable Tablet 324 mg Route: PO; kg 15:28 Follow up: Response: No adverse reaction kg Disposition: 17:22 Co-signature as Attending Physician, Carlos Wisdom MD I agree with the assessment and kdr plan of care. Disposition: 12/13/20 14:26 Hospitalization ordered by Ra Rao for Observation. Preliminary diagnosis is Chest pain, unspecified. - Bed requested for Telemetry/MedSurg (observation). - Status is Observation. kg - Condition is Stable. - Problem is new. - Symptoms are unchanged. Signatures: Dispatcher [employer] EDOK Leyla Martinez FNP-C FNP-Emilia Núñez RN RN Carlos Wisdom MD MD [facility] Lianet Leonard RN RN Nova Duuqe RN RN kg Corrections: (The following items were deleted from the chart) 13:38 13:28 Pt reports she went for her first visit with Dr Costa yesterday and her blood kb pressure was high. States she was told to check it routinely at home. Last night systolic was 150 and today the systolic has been 170. States she has some chest pressure and a headache that she has been thinking was sinuses. States she has pressure on her chest, but no actual pain. Pt has been taking the same blood pressure medications for years without change. States she normally doesn't check her bp at home. . kb 15:50 14:26 Hospitalization Ordered by Ra Rao DO for Observation. Preliminary dw diagnosis is Chest pain, unspecified. Bed requested for Telemetry/MedSurg (observation). Status is Observation. Condition is Stable. Problem is new. Symptoms are unchanged. kb 17:07 15:50 12/13/2020 14:26 Hospitalization Ordered by Ra Rao DO for Observation. kg Preliminary diagnosis is Chest pain, unspecified. Bed requested for Telemetry/MedSurg (observation). Status is Observation. Condition is Stable. Problem is new. Symptoms are unchanged. dw
--- NOTE | 2020-12-13 14:27 | ER ---
Nurse's Notes [facility] Name: Carol Guillory Age: 75 yrs Sex: Female : 1945 Arrival Date: 12/13/2020 Time: 12:44 Bed 19 Private MD: Fausto Costa Diagnosis: Chest pain, unspecified Presentation: 12/13 12:53 Chief complaint: Patient states: BP has been high, was 234/101 yesterday at PCP office, iw was 158/80 last night, was high again today, took her BP medicine (losartan 50 mg) was still high, her doctor told her to come in it was still high , was also having anxiety. c/o headache, denies dizziness or blurry vision, denies chest pain. Coronavirus screen: At this time, the client does not indicate any symptoms associated with coronavirus-19. Ebola Screen: Patient negative for fever greater than or equal to 101.5 degrees Fahrenheit, and additional compatible Ebola Virus Disease symptoms Patient denies exposure to infectious person. Patient denies travel to an Ebola-affected area in the 21 days before illness onset. No symptoms or risks identified at this time. Initial Sepsis Screen: Does the patient meet any 2 criteria? No. Patient's initial sepsis screen is negative. Does the patient have a suspected source of infection? No. Patient's initial sepsis screen is negative. Risk Assessment: Do you want to hurt yourself or someone else? Patient reports no desire to harm self or others. Onset of symptoms was December 12, 2020. 12:53 Method Of Arrival: Ambulatory iw 12:53 Acuity: MARCELA 3 iw Historical: - Allergies: 12:59 No Known Allergies; iw - Home Meds: 12:58 losartan 100 mg Oral tab 1 tab twice a day [Active]; atenolol 25 mg Oral tab 1 tab 2 iw times per day [Active]; metformin 500 mg Oral Tb24 1 tab once daily [Active]; pravastatin 20 mg oral tab 1 tab once daily [Active]; levothyroxine 50 mcg tab 1 tab once daily [Active]; - PMHx: 12:58 Diabetes - NIDDM; Hypertension; Hypothyroidism; iw - PSHx: 12:58 D \T\ C; iw 12:59 cervical polyps removed; iw - Immunization history:: Client reports receiving the 2nd dose of the Covid vaccine. - Social history:: Smoking status: Patient denies any tobacco usage or history of. Screenin:12 Abuse screen: Denies threats or abuse. Denies injuries from another. Nutritional kg screening: No deficits noted. Tuberculosis screening: No symptoms or risk factors identified. Fall Risk None identified. No fall in past 12 months (0 pts). No secondary diagnosis (0 pts). IV access (20 points). Ambulatory Aid- None/Bed Rest/Nurse Assist (0 pts). Gait- Normal/Bed Rest/Wheelchair (0 pts) Mental Status- Oriented to own ability (0 pts). Total Mcfadden Fall Scale indicates No Risk (0-24 pts). Assessment: 13:10 General: Appears in no apparent distress. Behavior is calm, cooperative, appropriate kg for age, quiet. Pain: Complains of pain in face Pain does not radiate. Pain currently is 3 out of 10 on a pain scale. at worst was 4 out of 10 on a pain scale. level that patient reports is acceptable is 2 out of 10 on a pain scale. Quality of pain is described as aching, dull, Constant Pain began 2-3 days ago. Neuro: Level of Consciousness is awake, alert, obeys commands, Oriented to person, place, time, situation, Appropriate for age Reports headache in entire since 2 days ago. Cardiovascular: No deficits noted. Heart tones S1 S2 Capillary refill < 3 seconds Pulses are 4+ in right radial artery and left radial artery Rhythm is regular. Respiratory: No deficits noted. Respiratory: Airway is patent Trachea midline Respiratory effort is even, unlabored, relaxed, Respiratory pattern is regular, Breath sounds are clear bilaterally. GI: No deficits noted. : No deficits noted. EENT: No deficits noted. Vital Signs: 12:53 BP 182 / 78; Pulse 72; Resp 16; Temp 98.5; Pulse Ox 98% on R/A; Weight 54.88 kg; Height iw 5 ft. 6 in. (167.64 cm); 13:30 BP 134 / 67; Pulse 66; Resp 17; Pulse Ox 98% on R/A; kg 13:45 BP 161 / 89; Pulse 68; Resp 20; Pulse Ox 97% on R/A; kg 14:00 BP 133 / 57; Pulse 62; Resp 20; Pulse Ox 96% ; kg 14:30 BP 150 / 62; Pulse 60; Resp 20; Pulse Ox 97% on R/A; kg 14:45 BP 107 / 93; Pulse 66; Resp 20; Pulse Ox 98% on R/A; kg 15:30 BP 179 / 78; Pulse 71; Resp 18; Pulse Ox 99% ; kg 16:00 BP 144 / 88; Pulse 70; Resp 20; Pulse Ox 98% ; kg 16:50 BP 153 / 77; Pulse 70; Resp 18; Pulse Ox 98% on R/A; kg 12:53 Body Mass Index 19.53 (54.88 kg, 167.64 cm) iw ED Course: 12:44 Patient arrived in ED. as 12:44 Fausto Costa DO is Private Physician. as 12:56 Triage completed. iw 12:58 Arm band placed on. iw 13:00 Leyla Martinez FNP-C is PHCP. kb 13:00 Carlos Wisdom MD is Attending Physician. kb 13:01 Nova Duque RN is Primary Nurse. kg 13:10 Inserted saline lock: 20 gauge in right antecubital area, using aseptic technique. kg 13:13 school bus monitor on. Pulse ox on. NIBP on. kg 13:13 Patient has correct armband on for positive identification. Placed in gown. Bed in low kg position. Call light in reach. Side rails up X2. Adult w/ patient. 13:13 Patient maintains SpO2 saturation greater than 95% on room air. kg 13:20 Basic Metabolic Panel Sent. kg 13:20 CBC with Diff Sent. kg 13:20 LFT's Sent. kg 13:34 Magnesium Sent. kg 13:34 NT PRO-BNP Sent. kg 13:34 Troponin (emerg Dept Use Only) Sent. kg 13:34 PT-INR Sent. kg 13:34 XRAY Chest (1 view) Sent. kg 14:26 Ra Rao DO is Hospitalizing Provider. kb 16:36 Report given to Iwona TAMAYOorgan assembler. kg 16:48 No provider procedures requiring assistance completed. Converted IV to saline lock on kg right antecubital area. Administered Medications: 14:32 Drug: Aspirin Chewable Tablet 324 mg Route: PO; kg 15:28 Follow up: Response: No adverse reaction kg Outcome: 14:26 Decision to Hospitalize by Provider. kb 16:48 Admitted to Med/surg accompanied by nurse, via wheelchair, room 204, Report called to van Bustillo RN 16:48 Condition: good 16:48 Instructed on the need for admit. 17:07 Patient left the ED. kg Signatures: Leyla Martinez, CINDI VALADEZ-Nneka Machuca Irene, RN Nova Mohr RN RN kg
[2020-12-13] MEDS ORDERED: ASPIRIN 81 MG CHEWABLE TABLET ONE (14:51)
--- NOTE | 2020-12-13 15:35 | P.HP ---
Certification for Inpatient Patient admitted to: Observation With expected LOS: <2 Midnights Patient will require the following post-hospital care: None Practitioner: I am a practitioner with admitting privileges, knowledge of patient current condition, hospital course, and medical plan of care. Services: Services provided to patient in accordance with Admission requirements found in Title 42 Section 412.3 of the Code of Federal Regulations Patient History Date of Service: 12/13/20 Primary Care Provider: Dr. Costa Reason for admission: Elevated blood pressure History of Present Illness: 75-year-old female with history of hypertension, diabetes, hypothyroidism and hyperlipidemia. Patient presented to the emergency room with elevated blood pressure. Patient was seen by a new PCP yesterday. She is found to have elevated blood pressure. Patient takes losartan 50 mg 1 pill twice daily and atenolol 25 mg 1 pill twice daily. Other medications include pravastatin, levothyroxine and metformin. Patient reported some headache associated with the elevated blood pressure. Some chest pressure also noted. She denies any shortness of breath, nausea, vomiting. Chest pressure does not radiate. Patient has been under a great deal of stress at home. She worries about her grandchildren. She is a . She came to the ER for further evaluation. In the ER patient was evaluated. Blood pressures were slightly elevated at 180 8/78. Chest x-ray showed 7 mm granuloma to the right upper lobe this is new fr om 2018. CBC unremarkable. White count 8.4, hemoglobin 14. Sodium 135, potassium 4.2. BUN of 20, creatinine 0.8 with GFR 67. Glucose 173. Troponin unremarkable. BNP was 592. EKG shows no significant ST changes. Patient admitted for observation. Allergies No Known Allergies Allergy (Verified 06/11/18 10:29) Home medications list reviewed: Yes Home Medications: Aspirin [Aspirin EC 81 MG] 81 mg PO DAILY 06/11/18 Losartan Potassium 100 mg PO [id number] 06/11/18 Metformin HCl [Glucophage] 500 mg PO BIDWM 06/11/18 Metoprolol Tartrate [Lopressor] 25 mg PO BID 06/11/18 Multivit-Min/Iron/Folic/[id number] [Hair, Skin and Nails Caplet] 1 each PO DAILY 06/11/18 Pravastatin Sodium 20 mg PO DAILY 06/11/18 - Past Medical/Surgical History Diabetic: Yes -: Diabetes mellitus type 2 -: Hypertension -: Hyperlipidemia -: Hypothyroidism -: Cervical polyps removed Psychosocial/ Personal History: Patient is a . She lives with 2 adult grandchildren - Family History Mother -: Cancer (Female cancer) - Social History Smoking Status: Never smoker Alcohol use: No CD- Drugs: No Caffeine use: Yes Place of Residence: Home Review of Systems General: As per HPI Eyes: Unremarkable ENT: Nose Congestion, As per HPI Respiratory: Unremarkable Cardiovascular: Chest Pain, As per HPI Gastrointestinal: Unremarkable Genitourinary: Unremarkable Musculoskeletal: Unremarkable Integumentary: Unremarkable Neurological: As per HPI Lymphatics: Unremarkable Physical Examination - Physical Exam General: Alert, In no apparent distress, Oriented x3, Cooperative HEENT: Atraumatic, Normocephalic, PERRLA, Mucous membr. moist/pink Neck: Supple Respiratory: Clear to auscultation bilaterally, Normal air movement Cardiovascular: Normal pulses, Regular rate/rhythm Gastrointestinal: Normal bowel sounds, Soft and benign, Non-distended, No tenderness, No masses, No rebound, No guarding Musculoskeletal: No erythema, No tenderness, No warmth Integumentary: No tenderness/swelling, No erythema, No warmth, No cyanosis Neurological: Normal speech, Normal strength at 5/5 x4 extr, Normal tone, Normal affect - Studies Laboratory Data (last 24 hrs) 12/13/20 13:08: PT 12.2, INR 1.06 12/13/20 13:08: WBC 8.40, Hgb 14.3, Hct 42.9, Plt Count 228 12/13/20 13:08: Sodium 135 L, Potassium 4.2, BUN 20 H, Creatinine 0.83, Glucose 173 H, Magnesium 2.0, Total Bilirubin 0.5, AST 22, ALT 28, Alkaline Phosphatase 77 Assessment and Plan - Plan Impression: Headache with chest pain Hypertension uncontrolled Diabetes mellitus type 2 [id number] Hyperlipidemia Hypothyroidism Anxiety Plan: Headache with chest pain: Patient will be admitted for further evaluation and treatment. Will monitor telemetry and cardiac enzymes. Will obtain echocardiogram to further evaluate. Cardiology consulted to further evaluate. Will need to get blood pressure better controlled. Will continue with losartan. Change atenolol to metoprolol. Will also add Norvasc. Anticipate improvement over the next 24 hr. Likely discharge tomorrow with outpatient workup unless cardiology recommends inpatient evaluation. Hypertension uncontrolled: Blood pressure needs to be better controlled. Will continue with losartan 50 mg 1 pill twice daily. Will discontinue atenolol and switch over to metoprolol 25 mg 1 pill twice daily. Will add Norvasc for better blood pressure control. Will monitor and adjust appropriately. Diabetes mellitus type 2 [id number]: Will check A1c. Continue Accu- Cheks and sliding scale. Will hold metformin at this time. Hyperlipidemia: Continue with statin medication. Will obtain fasting lipid panel. Hypothyroidism: Continue Levoxyl 50 mcg daily. Will check tsh and free T4. Anxiety: Patient reports some panic attacks at times. Will provide medication for anxiety. Code status: Full code DVT prophylaxis: Lovenox Advanced care planning-30 min Patient desires to go home at discharge. Discharge Plan: Home Plan to discharge in: 24 Hours - Advance Directives Does patient have a Living Will: No Does patient have a Durable POA for Healthcare: No - Code Status/Comfort Care Code Status Assessed: Yes (Patient is full code) Time Spent Managing Pts Care (In Minutes): 55
[2020-12-13 15:59] VITALS: BMI 19.7
[2020-12-13] MEDS ORDERED: ONDANSETRON 4 MG/2 ML VIAL IV PRN (17:21)
[2020-12-13] MEDS ORDERED: ACETAMINOPHEN 500 MG TAB PO PRN (17:21)
[2020-12-13] MEDS: INSULIN -REGULAR HUMAN 50 UNIT/0.5 ML ML SQ SCH ×2 (17:21→21:00)
[2020-12-13] MEDS ORDERED: LORAZEPAM 0.5 MG TABLET PO PRN (17:21)
[2020-12-13] MEDS ORDERED: NITROGLYCERIN 0.4 MG/TAB SL PRN (17:38)
[2020-12-13] MEDS: ENOXAPARIN 40 MG/0.4 ML SQ SCH ×2 (18:00→19:00)
[2020-12-13 18:49] LABS: Creatine Phosphokinase 68 U/L (26-192); Troponin I < 0.02 ng/mL (0.0-0.045)
[2020-12-13 18:50] LABS: CKMB Creatine Kinase MB < 1.0 ng/mL (1.0-3.6)
[2020-12-13] MEDS: METOPROLOL TAR 25 MG TAB PO SCH (19:00)
[2020-12-13 19:24] LABS: Urine Appearance CLEAR (Clear); Urine Bilirubin NEGATIVE (Negative); Urine Blood NEGATIVE (Negative); Urine Color YELLOW (Yellow); Urine Glucose NEGATIVE (Negative); Urine Microscopic Reflex NO UMIC; Urine Protein NEGATIVE (Negative); Urine Specific Gravity <=1.005 (1.005-1.030); Urine Urobilinogen 0.2 mg/dL (0.2-1.0); Urine pH 5.5 (5.0-7.0)
[2020-12-13 20:58] VITALS: O2SAT 96
[2020-12-13] MEDS ORDERED: ATORVASTATIN 10 MG TAB PO SCH (21:00)
[2020-12-13] MEDS: LOSARTAN POTASSIUM 50 MG TABLET PO SCH (21:14)
[2020-12-14 03:59] LABS: Creatine Phosphokinase 60 U/L (26-192); Troponin I < 0.02 ng/mL (0.0-0.045)
[2020-12-14 04:08] LABS: BUN Blood Urea Nitrogen 14 mg/dL (7-18); Bicarbonate 30 mmol/L (21-32); Glucose Level 125 mg/dL (74-106); HDL Cholesterol 77 mg/dL (40-60); LDL Cholesterol, Calculated 72 (<130); Sodium Level 141 mmol/L (136-145)
[2020-12-14] MEDS: METOPROLOL TAR 25 MG TAB PO SCH (05:16)
--- NOTE | 2020-12-14 05:48 | P.DS ---
Admission Date: 12/13/20 Discharge Date: 12/14/20 Primary Care Provider: Dr. Costa Disposition: ROUTINE DISCHARGE Discharge Condition: GOOD Reason for Admission: Elevated blood pressure Consultations: Cardiology-Dr. Brennan Procedures: CXR: FINDINGS: No peripheral consolidation or large mass lesions seen. A 7 millimeter rounded nodular density in the upper right lung field is present new from the comparison. This is relatively dense and is favored to be a granuloma. Interstitial markings are prominent but not clearly different. Chronic disease can mask early edema or infiltrate. Trachea is midline and hilar regions are normal range and stable. Heart size is normal. No vascular engorgement. No measurable pleural effusion and no pneumothorax. No acute bony abnormality seen. No acute aortic findings suspected. IMPRESSION: No acute cardiopulmonary process suspected. 7 mm nodular density upper right lung field is favored to be granuloma but he is new from 2018. Serial chest imaging can be utilized to assure stability with the initial follow-up in 3-4 months. Chronic interstitial lung disease similar to comparison. This can potentially mask early edema or infiltrate. Medical problem list: Headache with chest pain Hypertension uncontrolled Diabetes mellitus type 2 [id number] Hyperlipidemia Hypothyroidism Anxiety Chest x-ray showing 7 mm nodular density in the right upper lung field likely granuloma Brief History of Present Illness: 75-year-old female with history of hypertension, diabetes, hypothyroidism and hyperlipidemia. Patient presented to the emergency room with elevated blood pressure. Patient was seen by a new PCP yesterday. She is found to have elevated blood pressure. Patient takes losartan 50 mg 1 pill twice daily and atenolol 25 mg 1 pill twice daily. Other medications include pravastatin, levothyroxine and metformin. Patient reported some headache associated with the elevated blood pressure. Some chest pressure also noted. She denies any shortness of breath, nausea, vomiting. Chest pressure does not radiate. Patient has been under a great deal of stress at home. She worries about her grandchildren. She is a . She came to the ER for further evaluation. In the ER patient was evaluated. Blood pressures were slightly elevated at 180 8/78. Chest x-ray showed 7 mm granuloma to the right upper lobe this is new from 2018. CBC unremarkable. White count 8.4, hemoglobin 14. Sodium 135, potassium 4.2. BUN of 20, creatinine 0.8 with GFR 67. Glucose 173. Troponin unremarkable. BNP was 592. EKG shows no significant ST changes. Patient admitted for observation. Hospital Course: Patient presented with headache and chest pain. Patient also with uncontrolled hypertension. Patient was admitted for further evaluation and treatment. Medications were adjusted. Patient continued with losartan. Atenolol was switched to metoprolol. Norvasc was also added for better blood pressure control. Blood pressure now better controlled. Cardiac enzymes unremarkable. Cardiology was consulted to further evaluate. No intervention required. At discharge no significant chest pain or headache noted. Blood pressure improved. At discharge patient will continue with losartan 50 mg 1 pill twice daily, metoprolol 25 mg 1 pill twice daily and Norvasc 5 mg daily. Recommend to monitor blood pressure daily. Recommend to maintain blood pressure less than 130/80. Hold blood pressure medication if blood pressure systolic less than 110 or heart rate less than 60. Recommend follow-up with PCP to further monitor and adjust. Recommend follow-up with cardiology as an outpatient to further vikash hardeepate. As mentioned above patient presented with uncontrolled hypertension. Patient previously on losartan and atenolol. Medications were adjusted. Patient continued with losartan 50 mg 1 pill twice daily. Atenolol was switched to metoprolol 25 mg 1 pill twice daily. Norvasc 5 mg was added for better blood pressure control. Blood pressure now better controlled. At discharge she will continue with losartan 50 mg 1 pill twice daily, metoprolol 25 mg 1 pill twice daily, and Norvasc 5 mg daily. Recommend to monitor blood pressure daily. Recommend to maintain blood pressure less than 130/80. May hold medication if blood pressure systolic less than 110 or heart rate less than 60. Patient with diabetes mellitus type 2 [id number]. Hemoglobin A1c 7.0. At discharge will continue with metformin 500 mg 1 pill twice daily. Recommend to maintain blood sugars less than 140 fasting and less than 200 after meals. Recommend to recheck hemoglobin A1c every 3 months to monitor her progress. Recommend follow-up with her PCP to further monitor and adjust medication. Patient with hyperlipidemia. LDL well controlled at 72. At discharge she will continue with her current medication pravastatin 20 mg daily. Patient with hypothyroidism. This appears stable. At discharge she will continue with Levoxyl 50 mcg daily. Patient with anxiety. Patient reports some panic attacks at home. Education on anxiety will be provided. Recommend to decrease stress at home. Recommend follow-up with PCP to consider treatment plan as an outpatient. Chest x-ray showed 7 mm nodular density in the right upper lung field. This is likely granuloma. This is new from 2018. Recommend to recheck chest x-ray in 2- 4 weeks to monitor resolution or stability. This can be done with the help of her PCP. Vital Signs/Physical Exam: Temp Pulse Resp BP Pulse Ox 97.9 F 75 18 104/53 L 96 12/14/20 04:00 12/14/20 05:16 12/14/20 04:00 12/14/20 05:16 12/14/20 04:00 General: Alert, In no apparent distress, Oriented x3, Cooperative HEENT: Atraumatic Neck: Supple Respiratory: Clear to auscultation bilaterally, Normal air movement Cardiovascular: Normal pulses, Regular rate/rhythm Gastrointestinal: Normal bowel sounds, Soft and benign, Non-distended, No tenderness, No masses, No rebound, No guarding Musculoskeletal: No erythema, No tenderness, No warmth Integumentary: No tenderness/swelling Neurological: Normal speech, Normal strength at 5/5 x4 extr, Normal tone, Normal affect Laboratory Data at Discharge: WBC 8.40 K/uL (4.3-10.9) 12/13/20 13:08 Hgb 14.3 g/dL (12.0-15.0) 12/13/20 13:08 Hct 42.9 % (36.0-45.0) 12/13/20 13:08 Plt Count 228 K/uL (152-406) 12/13/20 13:08 PT 12.2 SECONDS (9.5-12.5) 12/13/20 13:08 INR 1.06 12/13/20 13:08 Sodium 141 mmol/L (136-145) 12/14/20 03:00 Potassium 4.0 mmol/L (3.5-5.1) 12/14/20 03:00 BUN 14 mg/dL (7-18) 12/14/20 03:00 Creatinine 0.63 mg/dL (0.55-1.3) 12/14/20 03:00 Glucose 125 mg/dL (74-106) H 12/14/20 03:00 Magnesium 2.0 mg/dL (1.8-2.4) 12/14/20 03:00 Total Bilirubin 0.5 mg/dL (0.2-1.0) 12/13/20 13:08 AST 22 U/L (15-37) 12/13/20 13:08 ALT 28 U/L (12-78) 12/13/20 13:08 Alkaline Phosphatase 77 U/L (45-117) 12/13/20 13:08 Troponin I < 0.02 ng/mL (0.0-0.045) 12/14/20 03:00 Triglycerides 43 mg/dL (<150) 12/14/20 03:00 Cholesterol 158 mg/dL (<200) 12/14/20 03:00 HDL Cholesterol 77 mg/dL (40-60) H 12/14/20 03:00 Cholesterol/HDL Ratio 2.05 12/14/20 03:00 Home Medications: Losartan Potassium 50 mg PO BID 06/11/18 Metformin HCl [Glucophage*] 500 mg PO BIDWM 06/11/18 Pravastatin Sodium 20 mg PO DAILY 06/11/18 Levothyroxine [Synthroid*] 50 mcg PO [id number] 12/13/20 Amlodipine [Norvasc*] 5 mg PO DAILY #30 tab 12/14/20 Metoprolol Tartrate [Lopressor*] 25 mg PO BID 6AM 6PM #60 tab 12/14/20 New Medications: Metoprolol Tartrate [Lopressor*] 25 mg PO BID 6AM 6PM #60 tab Amlodipine [Norvasc*] 5 mg PO DAILY #30 tab Physician Discharge Instructions: Patient presented with headache and chest pain. Patient also with uncontrolled hypertension. Patient was admitted for further evaluation and treatment. Medications were adjusted. Patient continued with losartan. Atenolol was switched to metoprolol. Norvasc was also added for better blood pressure control. Blood pressure now better controlled. Cardiac enzymes unremarkable. Cardiology was consulted to further evaluate. No intervention required. At discharge no significant chest pain or headache noted. Blood pressure improved. At discharge patient will continue with losartan 50 mg 1 pill twice daily, metoprolol 25 mg 1 pill twice daily and Norvasc 5 mg daily. Recommend to mo nitor blood pressure daily. Recommend to maintain blood pressure less than 130/80. Hold blood pressure medication if blood pressure systolic less than 110 or heart rate less than 60. Recommend follow-up with PCP to further monitor and adjust. Recommend follow-up with cardiology as an outpatient to further evaluate. As mentioned above patient presented with uncontrolled hypertension. Patient previously on losartan and atenolol. Medications were adjusted. Patient continued with losartan 50 mg 1 pill twice daily. Atenolol was switched to metoprolol 25 mg 1 pill twice daily. Norvasc 5 mg was added for better blood pressure control. Blood pressure now better controlled. At discharge she will continue with losartan 50 mg 1 pill twice daily, metoprolol 25 mg 1 pill twice daily, and Norvasc 5 mg daily. Recommend to monitor blood pressure daily. Recommend to maintain blood pressure less than 130/80. May hold medication if blood pressure systolic less than 110 or heart rate less than 60. Patient with diabetes mellitus type 2 [id number]. Hemoglobin A1c 7.0. At discharge will continue with metformin 500 mg 1 pill twice daily. Recommend to maintain blood sugars less than 140 fasting and less than 200 after meals. Recommend to recheck hemoglobin A1c every 3 months to monitor her progress. Recommend follow-up with her PCP to further monitor and adjust medication. Patient with hyperlipidemia. LDL well controlled at 72. At discharge she will continue with her current medication pravastatin 20 mg daily. Patient with hypothyroidism. This appears stable. At discharge she will continue with Levoxyl 50 mcg daily. Patient with anxiety. Patient reports some panic attacks at home. Education on anxiety will be provided. Recommend to decrease stress at home. Recommend follow-up with PCP to consider treatment plan as an outpatient. Chest x-ray showed 7 mm nodular density in the right upper lung field. This is likely granuloma. This is new from 2018. Recommend to recheck chest x-ray in 2- 4 weeks to monitor resolution or stability. This can be done with the help of her PCP. Diet: ADA Activity: Ad ulices Followup: Fausto Costa DO [Primary Care Provider] - Time spent managing pt's care (in minutes): 55
[2020-12-14] MEDS ORDERED: LEVOTHYROXINE SOD 0.05 MG TABLET PO SCH (06:30)
[2020-12-14] MEDS: INSULIN -REGULAR HUMAN 50 UNIT/0.5 ML ML SQ SCH (07:30)
[2020-12-14] MEDS: LOSARTAN POTASSIUM 50 MG TABLET PO SCH (08:23)
[2020-12-14] MEDS: ENOXAPARIN 40 MG/0.4 ML SQ SCH (08:23)
[2020-12-14] MEDS ORDERED: ASPIRIN EC 81 MG TAB PO SCH (09:00)
[2020-12-14 09:28] VITALS: BP 185/79; TEMP 97.7
--- NOTE | 2020-12-14 16:31 | EKG ---
Test Date: 2020-12-13 Test Time: 13:27:46 Institutional Cook: ROSALINDA MEASUREMENT RESULTS: Intervals: Rate: 65 HI: 140 QRSD: 74 QT: 396 QTc: 411 [place]: P: 65 HI: 140 QRS: 54 T: 44 INTERPRETIVE STATEMENTS: Normal sinus rhythm Possible Left atrial enlargement Borderline ECG Compared to ECG 06/16/2018 00:08:08 No significant changes Electronically Signed On 12-14-20 16:29:50 CDT by Jose A Brennan
[2020-12-14] MEDS ORDERED: AMLODIPINE 5 MG TAB PO SCH (22:00)
--- NOTE | 2020-12-15 08:32 | ECHO ---
HEIGHT: 5 ft 6 in WEIGHT: 122 lb 0 oz DATE OF STUDY: 12/14/[address]: Ra Rao DO 2-DIMENSIONAL: YES M.MODE: YES DOPPLER: YES COLOR FLOW: YES TDS: NO PORTABLE: NO DEFINITY: NO BUBBLE STUDY: NO DIAGNOSIS: CHEST PAIN CARDIAC HISTORY: CATHERIZATION: NO SURGERY: NO PROSTHETIC VALVE: NO PACEMAKER: NO MEASUREMENTS (cm) DIASTOLIC (NORMALS) SYSTOLIC (NORMALS) IVSd 0.8 (0.6-1.2) LA Diam 3.0 (1.9-4.0) LVEF 76% LVIDd 3.7 (3.5-5.7) LVIDs 2.1 (2.0-3.5) %FS 44% LVPWd 1.1 (0.6-1.2) Ao Diam 2.6 (2.0-3.7) 2 DIMENSIONAL ASSESSMENT: RIGHT ATRIUM: NORMAL LEFT ATRIUM: NORMAL RIGHT VENTRICLE: NORMAL LEFT VENTRICLE: NORMAL TRICUSPID VALVE: NORMAL MITRAL VALVE: NORMAL PULMONIC VALVE: NORML AORTIC VALVE: NORMAL PERICARDIAL EFFUSION: NONE AORTIC ROOT: NORMAL LEFT VENTRICULAR WALL MOTION: NORMAL DOPPLER/COLOR FLOW: MILD TRICUSPID REGURGITATION. COMMENTS: NORMAL LEFT VENTRICULAR SIZE AND FUNCTION. NO WALL MOTION ABNORMALITY. NO EFFUSION. MILD TRICUSPID REGURGITATION. NORMAL RIGHT VENTRICULAR SYSTOLIC PRESSURE. TECHNOLOGIST: Ishaan BURNS
== END 2020-12-14 10:57 | disposition home or self-care (01) ==
LOC: ER 12:41 → ERHOLD 15:40 → 2ND 16:58
PROVIDERS: ADMIT Family Medicine; ATTEND Family Medicine
DX: I10 Essential (primary) hypertension (principal); R51.9 Headache, unspecified; R07.9 Chest pain, unspecified; E11.9 Type 2 diabetes mellitus without complications; E78.5 Hyperlipidemia, unspecified; E03.9 Hypothyroidism, unspecified; F41.9 Anxiety disorder, unspecified; R91.8 Other nonspecific abnormal finding of lung field; Z79.84 Long term (current) use of oral hypoglycemic drugs
CPT/HCPCS: 36415; 71045; 80048; 80061; 80076; 81003; 82550; 82553; 82947; 83036; 83735; 83880; 84439; 84443; 84484; 85025; 85610; 93005; 93306; 99285; G0378; J1650

== ENCOUNTER 2021-03-19 01:50 | Emergency (ER) | payer OTHER ==
[2021-03-19 02:39] LABS: Absolute Lymphocytes (CBC) 1.9 K/uL (0.7-4.9); Basophils % 0.6 % (0-1.3); Hematocrit 38.7 % (36.0-45.0); Lymphocytes % 34.1 % (15.3-44.8); MPV 6.9 fL (7.6-11.3); RBC Red Blood Cell Count 4.29 M/uL (3.86-4.86)
[2021-03-19 03:06] LABS: BUN Blood Urea Nitrogen 18 mg/dL (7-18); Bicarbonate 29 mmol/L (21-32); Glucose Level 136 mg/dL (74-106); Potassium 3.9 mmol/L (3.5-5.1); Sodium Level 142 mmol/L (136-145); Troponin (Emerg Dept Use Only) < 0.02 ng/mL (0.0-0.045)
--- NOTE | 2021-03-19 03:38 | ER ---
Nurse's Notes [facility] Name: Carol Guillory Age: 75 yrs Sex: Female : 1945 Arrival Date: 03/19/2021 Time: 01:55 Bed 10 Private MD: Diagnosis: Essential (primary) hypertension Presentation: 03/19 02:04 Chief complaint: Patient states: Blood pressure elevated at home after beginning to lp1 hear buzzing sound in ears that began about 2 hours ago; Denies any chest pain, sob, headache. Coronavirus screen: At this time, the client does not indicate any symptoms associated with coronavirus-19. Ebola Screen: No symptoms or risks identified at this time. Initial Sepsis Screen: Does the patient meet any 2 criteria? No. Patient's initial sepsis screen is negative. Does the patient have a suspected source of infection? No. Patient's initial sepsis screen is negative. Risk Assessment: Do you want to hurt yourself or someone else? Patient reports no desire to harm self or others. Onset of symptoms was March 19, 2021. 02:04 Method Of Arrival: Ambulatory lp1 02:04 Acuity: MARCELA 3 lp1 Historical: - Allergies: 02:15 No Known Allergies; lp1 - Home Meds: 02:05 losartan 50 mg oral tab 2 times per day [Active]; metformin 500 mg Oral tab 1 tab 2 lp1 times per day [Active]; levothyroxine 50 mcg tab 1 tab once daily [Active]; metoprolol tartrate 25 mg Oral tab 1 tab 2 times per day [Active]; amlodipine 5 mg tab 1 tab once daily [Active]; pravastatin 20 mg Oral tab 1 tab once daily [Active]; - PMHx: 02:05 Diabetes - NIDDM; Hypertension; Hypothyroidism; lp1 - PSHx: 02:15 None; lp1 - Immunization history:: Adult Immunizations up to date. - Social history:: Smoking status: Patient denies any tobacco usage or history of. - Family history:: not pertinent. - Hospitalizations: : No recent hospitalization is reported. Screenin:06 Abuse screen: Denies threats or abuse. Denies injuries from another. Nutritional lp1 screening: No deficits noted. Tuberculosis screening: No symptoms or risk factors identified. Fall Risk None identified. Assessment: 02:31 General: Appears in no apparent distress. Behavior is calm, cooperative, appropriate lh3 for age. Pain: Denies pain. Cardiovascular: No deficits noted. Rhythm is sinus rhythm. Vital Signs: 02:04 BP 187 / 89; Pulse 93; Resp 18; Temp 98.7(TE); Pulse Ox 98% on R/A; Weight 52.62 kg lp1 (R); Height 5 ft. 6 in. (167.64 cm); Pain 0/10; 02:31 BP 142 / 86; Pulse 86; Resp 18; Pulse Ox 99% on R/A; lh3 04:25 BP 141 / 82; Pulse 83; Resp 18; Pulse Ox 99% on R/A; lh3 02:04 Body Mass Index 18.72 (52.62 kg, 167.64 cm) lp1 Vitals: 02:31 Cardiac Rhythm Assessment Regular Sinus rhythm. 3 ED Course: 01:55 Patient arrived in ED. lp1 01:57 José Miguel Dao MD is Attending Physician. rn 02:05 Triage completed. lp1 02:05 Arm band placed on. lp1 02:30 Marielena King RN is Primary Nurse. lh3 02:30 Troponin (emerg Dept Use Only) Sent. lh3 02:30 Basic Metabolic Panel Sent. lh3 02:30 CBC with Diff Sent. lh3 02:31 Patient has correct armband on for positive identification. Placed in gown. Bed in low lh3 position. Call light in reach. Side rails up X2. 02:31 No provider procedures requiring assistance completed. Inserted saline lock: 20 gauge lh3 in right forearm, using aseptic technique. Missed attempt(s): 20 gauge in right antecubital area. 03:18 CT Head Brain wo Cont In Process Unspecified. EDMS 04:24 IV discontinued, bleeding controlled, No redness/swelling at site. lh3 Administered Medications: No medications were administered Outcome: 03:37 Discharge ordered by . rn 04:24 Discharged to home with family. 3 04:24 Condition: stable 04:24 Discharge instructions given to patient, family, Instructed on discharge instructions, follow up and referral plans. Demonstrated understanding of instructions, follow-up care. 04:24 Patient left the ED. 3 Signatures: Dispatcher [employer] EDMS José Miguel Dao MD MD rn Pena, Laura, RN RN lp1 Marielena King RN RN lh3 Corrections: (The following items were deleted from the chart) 02:15 02:04 BP 187 / 89; Pulse 93bpm; Resp 18bpm; Pulse Ox 98% RA; Temp 98.7F Temporal; Pain lp1 0/10; lp1
--- NOTE | 2021-03-19 03:38 | EDPHYS ---
Physician Documentation [facility] Name: Carol Guillory Age: 75 yrs Sex: Female : 1945 Arrival Date: 03/19/2021 Time: 01:55 Bed 10 Private MD: ED Physician José Miguel Dao HPI: 03/19 02:21 This 75 yrs old Female presents to ER via Ambulatory with complaints of High rn blood pressure. 02:21 Patient reports woke up from sleep hearing a ringing or whooshing sound. Checked blood rn pressure and was high stated 200/100. Takes 3 different antihypertensives, but depends on blood pressure reading as to which ones she is taking. Denies any focal neurological deficits. Denies chest pain or abdominal pain. Denies vision changes. States on the way here in the car sounds went away and started feeling back to normal.. Onset: The symptoms/episode began/occurred just prior to arrival. Severity of symptoms: At their worst the symptoms were moderate in the emergency department the symptoms have improved. The patient has experienced similar episodes in the past. The patient has not recently seen a physician. Historical: - Allergies: 02:15 No Known Allergies; lp1 - Home Meds: 02:05 losartan 50 mg oral tab 2 times per day [Active]; metformin 500 mg Oral tab 1 tab 2 lp1 times per day [Active]; levothyroxine 50 mcg tab 1 tab once daily [Active]; metoprolol tartrate 25 mg Oral tab 1 tab 2 times per day [Active]; amlodipine 5 mg tab 1 tab once daily [Active]; pravastatin 20 mg Oral tab 1 tab once daily [Active]; - PMHx: 02:05 Diabetes - NIDDM; Hypertension; Hypothyroidism; lp1 - PSHx: 02:15 None; lp1 - Immunization history:: Adult Immunizations up to date. - Social history:: Smoking status: Patient denies any tobacco usage or history of. - Family history:: not pertinent. - Hospitalizations: : No recent hospitalization is reported. ROS: 02:21 Constitutional: Negative for fever, chills, and weight loss, Eyes: Negative for injury, rn pain, redness, and discharge, ENT: Negative for injury, pain, and discharge, Neck: Negative for injury, pain, and swelling, Cardiovascular: Negative for chest pain, palpitations, and edema, Respiratory: Negative for shortness of breath, cough, wheezing, and pleuritic chest pain, Abdomen/GI: Negative for abdominal pain, nausea, vomiting, diarrhea, and constipation, Back: Negative for injury and pain, : Negative for injury, bleeding, discharge, and swelling, MS/Extremity: Negative for injury and deformity, Skin: Negative for injury, rash, and discoloration, Neuro: Negative for weakness, numbness, tingling, and seizure. 02:21 All other systems are negative. Exam: 02:21 Constitutional: This is a well developed, well nourished patient who is awake, alert, rn and in no acute distress. Head/Face: Normocephalic, atraumatic. Eyes: Periorbital areas with no swelling, redness, or edema. Neck: Trachea midline, no masses palpated, and no cervical lymphadenopathy. Supple, full range of motion without nuchal rigidity, or vertebral point tenderness. No Meningismus. Cardiovascular: Regular rate and rhythm. No pulse deficits. Respiratory: No increased work of breathing, no retractions or nasal flaring. Abdomen/GI: Soft, non-tender Skin: Warm, dry MS/ Extremity: Pulses equal, no cyanosis. Neurovascular intact. Full, normal range of motion. Equal circumference. Neuro: Awake and alert, GCS 15, oriented to person, place, time, and situation. Cranial nerves II-XII grossly intact. Motor strength 5/5 in all extremities. Sensory grossly intact. Cerebellar exam normal. 03:22 ECG was reviewed by the Attending Physician. rn Vital Signs: 02:04 BP 187 / 89; Pulse 93; Resp 18; Temp 98.7(TE); Pulse Ox 98% on R/A; Weight 52.62 kg lp1 (R); Height 5 ft. 6 in. (167.64 cm); Pain 0/10; 02:31 BP 142 / 86; Pulse 86; Resp 18; Pulse Ox 99% on R/A; lh3 04:25 BP 141 / 82; Pulse 83; Resp 18; Pulse Ox 99% on R/A; lh3 02:04 Body Mass Index 18.72 (52.62 kg, 167.64 cm) lp1 MDM: 01:57 Patient medically screened. rn 03:35 Differential Diagnosis Hypertension, intracranial bleed, medication confusion, chronic rn hypertension, malignant hypertension. Data reviewed: vital signs, nurses notes, lab test result(s), EKG, radiologic studies, CT scan, and as a result, I will discharge patient. Data interpreted: cover inspector: rate is 99 beats/min, rhythm is normal sinus rhythm, regular, with no ectopy, Interpretation: normal rate, normal rhythm, Pulse oximetry: on room air is 99 %. Interpretation: normal. Counseling: I had a detailed discussion with the patient and/or guardian regarding: the historical points, exam findings, and any diagnostic results supporting the discharge/admit diagnosis, lab results, radiology results, the need for outpatient follow up, to return to the emergency department if symptoms worsen or persist or if there are any questions or concerns that arise at home. Counseling: I had a detailed discussion with the patient and/or guardian regarding: the presence of at least one elevated blood pressure reading (>120/80) during this emergency department visit. Response to treatment: the patient's symptoms have markedly improved after treatment, and as a result, I will discharge patient. Special discussion: I have referred the patient to see his PCP for further evaluation of high blood pressure. I discussed with the patient/guardian in detail that at this point there is no indication for admission to the hospital. It is understood, however, that if the symptoms persist or worsen the patient needs to return immediately for re-evaluation. ED course: Patient with negative work-up here including negative CT head/EKG/troponin. Normal renal function. Patient to monitor blood pressure with an appropriate sized cuff and take dated to PCP for medication clarification as takes 2 medications as prescribed with a third as needed and seems very confused. Back to baseline with blood pressure 142/86 without any intervention. Normal neurological exam.. 03/19 02:15 Order name: CBC with Diff; Complete Time: 03:21 03/19 02:15 Order name: Basic Metabolic Panel; Complete Time: 03:21 03/19 02:15 Order name: CT Head Brain wo Cont 03/19 02:15 Order name: IV Start; Complete Time: 02:30 03/19 02:15 Order name: Troponin (emerg Dept Use Only); Complete Time: 03:21 03/19 02:15 Order name: EKG; Complete Time: 02:15 03/19 02:15 Order name: EKG - Nurse/Tech; Complete Time: 02:30 rn EC:22 Rate is 69 beats/min. Rhythm is regular. QRS [place] is Normal. [place] interval is normal. QRS rn interval is normal. QT interval is normal. No Q waves. T waves are Normal. No ST changes noted. Clinical impression: NSR w/ Non-specific ST/T Changes. Interpreted by me. Reviewed by me. 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
[2021-03-19 04:32] VITALS: TEMP 98.7
[2021-03-19 04:34] VITALS: BP 142/86; O2SAT 99
--- NOTE | 2021-03-20 11:04 | RAD REPORT ---
EXAM DESCRIPTION: CT - Head Brain Wo Cont - 03/19/2021 8:20 am CLINICAL HISTORY: The patient is 75 years old and is Female; hypertension, headache TECHNIQUE: Axial computed tomography images of the head/brain without intravenous contrast. Sagitt al and coronal reformatted images were created and reviewed. This CT exam was performed using one o r more of the following dose reduction techniques: automated exposure control, adjustment of the mA and/or kV according to patient size, and/or use of iterative reconstruction technique. COMPARISON: No relevant prior studies available. FINDINGS: Brain: Mild nonspecific white matter changes likely related to chronic microvascular isc hemic disease. Mild cerebral atrophy. No hemorrhage. Ventricles: Unremarkable. No ventriculomegaly. Bones/joints: Unremarkable. No acute fracture. Soft tissues: Unremarkable. Sinuses: Unremarkable as visualized. Mastoid air cells: Unremarkable as visualized. No mastoid effusion. IMPRESSION: No acute intracranial abnormality. Electronically signed by: Joe Berger MD 03/19/2021 3:23 AM CDT Due to temporary technical issues with the PACS/Fluency reporting system, reports are being signed by the in house radiologist without review as a courtesy to ensure prompt reporting. The interpreting r adiologist is fully responsible for the content of the report.
== END 2021-03-19 04:24 | disposition home or self-care (01) ==
LOC: ER 01:50
DX: I10 Essential (primary) hypertension (principal); E11.9 Type 2 diabetes mellitus without complications; E03.9 Hypothyroidism, unspecified
CPT/HCPCS: 36415; 70450; 80048; 84484; 85025; 93005; 99284

== ENCOUNTER 2023-10-24 14:25 | Emergency (ER) | payer OTHER ==
--- OUTSIDE RECORDS SUMMARY | 2023-10-24 14:30 | XMS REPORT | Continuity of Care Document ---
Author Name Unknown Address [address] [facility] [address] [place] [address] [facility] Address [address] [facility] [address] [place] [address] Care Team Providers Care Pressroom Supervisor Name Role Phone Fausto Costa Attending Clinician Unavailable Jesse -Shalonda Appiah Attending Clinician [phone] [email or web address] Attending Clinician Unavaila ble BWilliams Attending Clinician Unavailable César Quiroz Attending Clinician [phone] José Antonio Leonard Attending Clinician [phone] OW_T Attending Clinician Unavailable [email or web address]_S Admitting Clinician Unavaila daisy BWilliams Admitting Clinician Unavailable OWENS_T Admitting Clinician Unavailable Payers Payer Name Policy Type Policy Number Effective Date Expirati on Date Source [facility] (MEDICARE REPLACEMENT HMO) [id number] 00:00:00 Problems Condition Name Condition Details Condition Category Status Onset Date Resolution Date Last Treatment Date Treating Clinician Comments Source Solitary nodule of lung Nodule of left lung Problem [facility] [id number] Asymptomat ic hypertensi ve urgency Problem [facility] [id number] Essential hypertensi on Problem [facility] [id number] Type 2 diabetes mellitus with hyperglyce corey, without long-term current use of insulin Problem [facility] [id number] Acute stress disorder Problem [facility] [id number] Abnormal chest xray Problem [facility] [id number] Hypothyroi dism (acquired) Problem [facility] Decreased hearing Hearing decreased Problem [facility] [id number] Cataract, unspecifie d cataract type, unspecifie d laterality Problem [facility] [id number] Type 2 diabetes mellitus with other diabetic kidney complicati on Problem [facility] [id number] Mixed hyperlipid emia Problem [facility] [id number] Right upper lobe pulmonary nodule Problem [facility] [id number] EVANGELINA (generaliz ed anxiety disorder) Problem [facility] [id number] Panic attacks Problem [facility] [id number] Insomnia, unspecifie d type Problem [facility] [id number] Poor appetite Problem [facility] Allergic rhinitis Allergic rhinitis, unspecifie d seasonalit y, unspecifie d trigger Problem [facility] Social History Social Habit Start Date Stop Date Quantity Comments Source History of Tobacco Use [facility] Sex Assigned At [facility] Smoking Status Start Date Stop Date Source Never Smoker [facility] Medications Ordered Medication Name Filled Medication Name Start Date Stop Date Current Medication? Ordering Clinician Indication Dosage Frequency Signature (SIG) Comments Components Source Mirtazapine 7.5 MG Mirtazapine 7.5 MG 2022-06 0- 00:00: 00 No 1{table ts_at_b edtime} QD Mirtazapin e 7.5 MG Mirtazapine 7.5 MG Mirtazapine 7.5 MG 2022-06 0-25 00:00: 00 No 1{table ts_at_b edtime} QD Mirtazapin e 7.5 MG amLODIPine Besylate 5 MG amLODIPine Besylate 5 MG No amLODIPine Besylate 5 MG metFORMIN HCl 500 MG metFORMIN HCl 500 MG No metFORMIN HCl 500 MG Metoprolol Tartrate 25 MG Metoprolol Tartrate 25 MG No Metoprolol Tartrate 25 MG Pravachol 20 MG Pravachol 20 MG No 1{table t} QD Pravachol 20 MG Mucus Relief Mucus Relief No Mucus Relief Atenolol 25 MG Atenolol 25 MG No Atenolol 25 MG Metoprolol Tartrate 50 MG Metoprolol Tartrate 50 MG No 1{table t_with_ food} BID Metoprolol Tartrate 50 MG Losartan Potassium 50 MG Losartan Potassium 50 MG No Losartan Potassium 50 MG Levothyroxi ne Sodium 50 MCG Levothyroxi ne Sodium 50 MCG No QD Levothyrox ine Sodium 50 MCG Pravastatin Sodium 20 MG Pravastatin Sodium 20 MG No Pravastati n Sodium 20 MG amLODIPine Besylate 5 MG amLODIPine Besylate 5 MG No amLODIPine Besylate 5 MG metFORMIN HCl 500 MG metFORMIN HCl 500 MG No metFORMIN HCl 500 MG Metoprolol Tartrate 25 MG Metoprolol Tartrate 25 MG No Metoprolol Tartrate 25 MG Pravachol 20 MG Pravachol 20 MG No 1{table t} QD Pravachol 20 MG Mucus Relief Mucus Relief No Mucus Relief Atenolol 25 MG Atenolol 25 MG No Atenolol 25 MG Metoprolol Tartrate 50 MG Metoprolol Tartrate 50 MG No 1{table t_with_ food} BID Metoprolol Tartrate 50 MG Losartan Potassium 50 MG Losartan Potassium 50 MG No Losartan Potassium 50 MG Levothyroxi ne Sodium 50 MCG Levothyroxi ne Sodium 50 MCG No QD Levothyrox ine Sodium 50 MCG Pravastatin Sodium 20 MG Pravastatin Sodium 20 MG No Pravastati n Sodium 20 MG Levothyroxi ne Sodium 50 MCG Levothyroxi ne Sodium 50 MCG No QD Levothyrox ine Sodium 50 MCG busPIRone HCl 5 MG busPIRone HCl 5 MG No 1{table t} busPIRone HCl 5 MG Mucus Relief Mucus Relief No Mucus Relief Metoprolol Tartrate 50 MG Metoprolol Tartrate 50 MG No 1{table t_with_ food} BID Metoprolol Tartrate 50 MG metFORMIN HCl 500 MG metFORMIN HCl 500 MG No metFORMIN HCl 500 MG Losartan Potassium 50 MG Losartan Potassium 50 MG No 1{table t} BID Losartan Potassium 50 MG Pravastatin Sodium 20 MG Pravastatin Sodium 20 MG No Pravastati n Sodium 20 MG metFORMIN HCl 1000 MG metFORMIN HCl 1000 MG No 1{table t_with_ a_meal} BID metFORMIN HCl 1000 MG Pravachol 20 MG Pravachol 20 MG No 1{table t} QD Pravachol 20 MG Levothyroxi ne Sodium 50 MCG Levothyroxi ne Sodium 50 MCG No QD Levothyrox ine Sodium 50 MCG Pravastatin Sodium 20 MG Pravastatin Sodium 20 MG No Pravastati n Sodium 20 MG metFORMIN HCl 500 MG metFORMIN HCl 500 MG No 1{table t_with_ a_meal} BID metFORMIN HCl 500 MG Pravachol 20 MG Pravachol 20 MG No 1{table t} QD Pravachol 20 MG Flonase Flonase No Flonase Metoprolol Tartrate 50 MG Metoprolol Tartrate 50 MG No 1{table t_with_ food} BID Metoprolol Tartrate 50 MG Losartan Potassium 50 MG Losartan Potassium 50 MG No 1{table t} BID Losartan Potassium 50 MG Levothyroxi ne Sodium 50 MCG Levothyroxi ne Sodium 50 MCG No QD Levothyrox ine Sodium 50 MCG Pravastatin Sodium 20 MG Pravastatin Sodium 20 MG No Pravastati n Sodium 20 MG metFORMIN HCl 500 MG metFORMIN HCl 500 MG No 1{table t_with_ a_meal} BID metFORMIN HCl 500 MG Pravachol 20 MG Pravachol 20 MG No 1{table t} QD Pravachol 20 MG Flonase Flonase No Flonase Metoprolol Tartrate 50 MG Metoprolol Tartrate 50 MG No 1{table t_with_ food} BID Metoprolol Tartrate 50 MG Losartan Potassium 50 MG Losartan Potassium 50 MG No 1{table t} BID Losartan Potassium 50 MG Mirtazapine 7.5 MG Mirtazapine 7.5 MG No 1{table ts_at_b edtime} QD Mirtazapin e 7.5 MG Flonase Flonase No Flonase Pravachol 20 MG Pravachol 20 MG No 1{table t} QD Pravachol 20 MG Pravastatin Sodium 20 MG Pravastatin Sodium 20 MG No Pravastati n Sodium 20 MG Metoprolol Tartrate 50 MG Metoprolol Tartrate 50 MG No 1{table t_with_ food} BID Metoprolol Tartrate 50 MG Levothyroxi ne Sodium 50 MCG Levothyroxi ne Sodium 50 MCG No QD Levothyrox ine Sodium 50 MCG Losartan Potassium 50 MG Losartan Potassium 50 MG No Losartan Potassium 50 MG metFORMIN HCl 500 MG metFORMIN HCl 500 MG No 1{table t_with_ a_meal} BID metFORMIN HCl 500 MG Mirtazapine 7.5 MG Mirtazapine 7.5 MG No 1{table ts_at_b edtime} QD Mirtazapin e 7.5 MG Flonase Flonase No Flonase Pravachol 20 MG Pravachol 20 MG No 1{table t} QD Pravachol 20 MG Pravastatin Sodium 20 MG Pravastatin Sodium 20 MG No Pravastati n Sodium 20 MG Metoprolol Tartrate 50 MG Metoprolol Tartrate 50 MG No 1{table t_with_ food} BID Metoprolol Tartrate 50 MG Levothyroxi ne Sodium 50 MCG Levothyroxi ne Sodium 50 MCG No QD Levothyrox ine Sodium 50 MCG Losartan Potassium 50 MG Losartan Potassium 50 MG No Losartan Potassium 50 MG metFORMIN HCl 500 MG metFORMIN HCl 500 MG No 1{table t_with_ a_meal} BID metFORMIN HCl 500 MG Mirtazapine 7.5 MG Mirtazapine 7.5 MG No 1{table ts_at_b edtime} QD Mirtazapin e 7.5 MG Flonase Flonase No Flonase Pravachol 20 MG Pravachol 20 MG No 1{table t} QD Pravachol 20 MG Pravastatin Sodium 20 MG Pravastatin Sodium 20 MG No Pravastati n Sodium 20 MG Metoprolol Tartrate 50 MG Metoprolol Tartrate 50 MG No 1{table t_with_ food} BID Metoprolol Tartrate 50 MG Levothyroxi ne Sodium 50 MCG Levothyroxi ne Sodium 50 MCG No QD Levothyrox ine Sodium 50 MCG Losartan Potassium 50 MG Losartan Potassium 50 MG No Losartan Potassium 50 MG metFORMIN HCl 500 MG metFORMIN HCl 500 MG No 1{table t_with_ a_meal} BID metFORMIN HCl 500 MG OneTouch Ultra Test - OneTouch Ultra Test - No OneTouch Ultra Test - Metoprolol Tartrate 50 MG Metoprolol Tartrate 50 MG No 1{table t_with_ food} BID Metoprolol Tartrate 50 MG Mirtazapine 7.5 MG Mirtazapine 7.5 MG No 1{table ts_at_b edtime} QD Mirtazapin e 7.5 MG Flonase Flonase No Flonase Pravachol 20 MG Pravachol 20 MG No 1{table t} QD Pravachol 20 MG Pravastatin Sodium 20 MG Pravastatin Sodium 20 MG No Pravastati n Sodium 20 MG Metoprolol Tartrate 50 MG Metoprolol Tartrate 50 MG No 1{table t_with_ food} BID Metoprolol Tartrate 50 MG Levothyroxi ne Sodium 50 MCG Levothyroxi ne Sodium 50 MCG No QD Levothyrox ine Sodium 50 MCG Losartan Potassium 50 MG Losartan Potassium 50 MG No Losartan Potassium 50 MG metFORMIN HCl 500 MG metFORMIN HCl 500 MG No 1{table t_with_ a_meal} BID metFORMIN HCl 500 MG Atenolol 25 MG Atenolol 25 MG No Atenolol 25 MG Mirtazapine 7.5 MG Mirtazapine 7.5 MG No 1{table ts_at_b edtime} QD Mirtazapin e 7.5 MG Flonase Flonase No Flonase Levothyroxi ne Sodium 50 MCG Levothyroxi ne Sodium 50 MCG No Levothyrox ine Sodium 50 MCG Pravachol 20 MG Pravachol 20 MG No 1{table t} QD Pravachol 20 MG Pravastatin Sodium 20 MG Pravastatin Sodium 20 MG No Pravastati n Sodium 20 MG Metoprolol Tartrate 50 MG Metoprolol Tartrate 50 MG No 1{table t_with_ food} BID Metoprolol Tartrate 50 MG Levothyroxi ne Sodium 50 MCG Levothyroxi ne Sodium 50 MCG No QD Levothyrox ine Sodium 50 MCG Losartan Potassium 50 MG Losartan Potassium 50 MG No Losartan Potassium 50 MG metFORMIN HCl 500 MG metFORMIN HCl 500 MG No 1{table t_with_ a_meal} BID metFORMIN HCl 500 MG Pravastatin Sodium 20 MG Pravastatin Sodium 20 MG No Pravastati n Sodium 20 MG Mirtazapine 7.5 MG Mirtazapine 7.5 MG No 1{table ts_at_b edtime} QD Mirtazapin e 7.5 MG Metoprolol Tartrate 25 MG Metoprolol Tartrate 25 MG No Metoprolol Tartrate 25 MG Flonase Flonase No Flonase Pravachol 20 MG Pravachol 20 MG No 1{table t} QD Pravachol 20 MG Pravastatin Sodium 20 MG Pravastatin Sodium 20 MG No Pravastati n Sodium 20 MG Metoprolol Tartrate 50 MG Metoprolol Tartrate 50 MG No 1{table t_with_ food} BID Metoprolol Tartrate 50 MG Levothyroxi ne Sodium 50 MCG Levothyroxi ne Sodium 50 MCG No QD Levothyrox ine Sodium 50 MCG Losartan Potassium 50 MG Losartan Potassium 50 MG No Losartan Potassium 50 MG metFORMIN HCl 500 MG metFORMIN HCl 500 MG No 1{table t_with_ a_meal} BID metFORMIN HCl 500 MG metFORMIN HCl 500 MG metFORMIN HCl 500 MG No 1{table t_with_ a_meal} BID metFORMIN HCl 500 MG Losartan Potassium 50 MG Losartan Potassium 50 MG No Losartan Potassium 50 MG Mirtazapine 7.5 MG Mirtazapine 7.5 MG No 1{table ts_at_b edtime} QD Mirtazapin e 7.5 MG Flonase Flonase No Flonase Pravachol 20 MG Pravachol 20 MG No 1{table t} QD Pravachol 20 MG Pravastatin Sodium 20 MG Pravastatin Sodium 20 MG No Pravastati n Sodium 20 MG Metoprolol Tartrate 50 MG Metoprolol Tartrate 50 MG No 1{table t_with_ food} BID Metoprolol Tartrate 50 MG Levothyroxi ne Sodium 50 MCG Levothyroxi ne Sodium 50 MCG No QD Levothyrox ine Sodium 50 MCG Losartan Potassium 50 MG Losartan Potassium 50 MG No Losartan Potassium 50 MG metFORMIN HCl 500 MG metFORMIN HCl 500 MG No 1{table t_with_ a_meal} BID metFORMIN HCl 500 MG Pravachol 20 MG Pravachol 20 MG No 1{table t} QD Pravachol 20 MG amLODIPine Besylate 5 MG amLODIPine Besylate 5 MG No 1{table t} QD amLODIPine Besylate 5 MG Metoprolol Tartrate 50 MG Metoprolol Tartrate 50 MG No 1{table t_with_ food} BID Metoprolol Tartrate 50 MG Pravachol 20 MG Pravachol 20 MG No 1{table t} QD Pravachol 20 MG metFORMIN HCl 1000 MG metFORMIN HCl 1000 MG No 1{table t_with_ a_meal} BID metFORMIN HCl 1000 MG Pravastatin Sodium 20 MG Pravastatin Sodium 20 MG No Pravastati n Sodium 20 MG Losartan Potassium 50 MG Losartan Potassium 50 MG No Losartan Potassium 50 MG metFORMIN HCl 500 MG metFORMIN HCl 500 MG No 1{table t_with_ a_meal} BID metFORMIN HCl 500 MG Flonase Flonase No Flonase Levothyroxi ne Sodium 50 MCG Levothyroxi ne Sodium 50 MCG No QD Levothyrox ine Sodium 50 MCG Metoprolol Tartrate 50 MG Metoprolol Tartrate 50 MG No 1{table t_with_ food} BID Metoprolol Tartrate 50 MG Pravachol 20 MG Pravachol 20 MG No 1{table t} QD Pravachol 20 MG metFORMIN HCl 1000 MG metFORMIN HCl 1000 MG No 1{table t_with_ a_meal} BID metFORMIN HCl 1000 MG Pravastatin Sodium 20 MG Pravastatin Sodium 20 MG No Pravastati n Sodium 20 MG Losartan Potassium 50 MG Losartan Potassium 50 MG No Losartan Potassium 50 MG metFORMIN HCl 500 MG metFORMIN HCl 500 MG No 1{table t_with_ a_meal} BID metFORMIN HCl 500 MG Flonase Flonase No Flonase Levothyroxi ne Sodium 50 MCG Levothyroxi ne Sodium 50 MCG No QD Levothyrox ine Sodium 50 MCG Metoprolol Tartrate 50 MG Metoprolol Tartrate 50 MG No 1{table t_with_ food} BID Metoprolol Tartrate 50 MG Pravachol 20 MG Pravachol 20 MG No 1{table t} QD Pravachol 20 MG metFORMIN HCl 1000 MG metFORMIN HCl 1000 MG No 1{table t_with_ a_meal} BID metFORMIN HCl 1000 MG Pravastatin Sodium 20 MG Pravastatin Sodium 20 MG No Pravastati n Sodium 20 MG Losartan Potassium 50 MG Losartan Potassium 50 MG No Losartan Potassium 50 MG metFORMIN HCl 500 MG metFORMIN HCl 500 MG No 1{table t_with_ a_meal} BID metFORMIN HCl 500 MG Flonase Flonase No Flonase Levothyroxi ne Sodium 50 MCG Levothyroxi ne Sodium 50 MCG No QD Levothyrox ine Sodium 50 MCG Metoprolol Tartrate 50 MG Metoprolol Tartrate 50 MG No 1{table t_with_ food} BID Metoprolol Tartrate 50 MG Pravachol 20 MG Pravachol 20 MG No 1{table t} QD Pravachol 20 MG metFORMIN HCl 1000 MG metFORMIN HCl 1000 MG No 1{table t_with_ a_meal} BID metFORMIN HCl 1000 MG Pravastatin Sodium 20 MG Pravastatin Sodium 20 MG No Pravastati n Sodium 20 MG Losartan Potassium 50 MG Losartan Potassium 50 MG No Losartan Potassium 50 MG metFORMIN HCl 500 MG metFORMIN HCl 500 MG No 1{table t_with_ a_meal} BID metFORMIN HCl 500 MG Flonase Flonase No Flonase Levothyroxi ne Sodium 50 MCG Levothyroxi ne Sodium 50 MCG No QD Levothyrox ine Sodium 50 MCG Metoprolol Tartrate 50 MG Metoprolol Tartrate 50 MG No 1{table t_with_ food} BID Metoprolol Tartrate 50 MG Pravachol 20 MG Pravachol 20 MG No 1{table t} QD Pravachol 20 MG metFORMIN HCl 1000 MG metFORMIN HCl 1000 MG No 1{table t_with_ a_meal} BID metFORMIN HCl 1000 MG Pravastatin Sodium 20 MG Pravastatin Sodium 20 MG No Pravastati n Sodium 20 MG Losartan Potassium 50 MG Losartan Potassium 50 MG No Losartan Potassium 50 MG metFORMIN HCl 500 MG metFORMIN HCl 500 MG No 1{table t_with_ a_meal} BID metFORMIN HCl 500 MG Flonase Flonase No Flonase Levothyroxi ne Sodium 50 MCG Levothyroxi ne Sodium 50 MCG No QD Levothyrox ine Sodium 50 MCG Metoprolol Tartrate 50 MG Metoprolol Tartrate 50 MG No 1{table t_with_ food} BID Metoprolol Tartrate 50 MG Pravachol 20 MG Pravachol 20 MG No 1{table t} QD Pravachol 20 MG metFORMIN HCl 1000 MG metFORMIN HCl 1000 MG No 1{table t_with_ a_meal} BID metFORMIN HCl 1000 MG Pravastatin Sodium 20 MG Pravastatin Sodium 20 MG No Pravastati n Sodium 20 MG Losartan Potassium 50 MG Losartan Potassium 50 MG No Losartan Potassium 50 MG metFORMIN HCl 500 MG metFORMIN HCl 500 MG No 1{table t_with_ a_meal} BID metFORMIN HCl 500 MG Flonase Flonase No Flonase Levothyroxi ne Sodium 50 MCG Levothyroxi ne Sodium 50 MCG No QD Levothyrox ine Sodium 50 MCG Metoprolol Tartrate 50 MG Metoprolol Tartrate 50 MG No 1{table t_with_ food} BID Metoprolol Tartrate 50 MG Pravachol 20 MG Pravachol 20 MG No 1{table t} QD Pravachol 20 MG metFORMIN HCl 1000 MG metFORMIN HCl 1000 MG No 1{table t_with_ a_meal} BID metFORMIN HCl 1000 MG Pravastatin Sodium 20 MG Pravastatin Sodium 20 MG No Pravastati n Sodium 20 MG Losartan Potassium 50 MG Losartan Potassium 50 MG No Losartan Potassium 50 MG metFORMIN HCl 500 MG metFORMIN HCl 500 MG No 1{table t_with_ a_meal} BID metFORMIN HCl 500 MG Flonase Flonase No Flonase Levothyroxi ne Sodium 50 MCG Levothyroxi ne Sodium 50 MCG No QD Levothyrox ine Sodium 50 MCG Metoprolol Tartrate 50 MG Metoprolol Tartrate 50 MG No 1{table t_with_ food} BID Metoprolol Tartrate 50 MG Pravachol 20 MG Pravachol 20 MG No 1{table t} QD Pravachol 20 MG metFORMIN HCl 1000 MG metFORMIN HCl 1000 MG No 1{table t_with_ a_meal} BID metFORMIN HCl 1000 MG Pravastatin Sodium 20 MG Pravastatin Sodium 20 MG No Pravastati n Sodium 20 MG Losartan Potassium 50 MG Losartan Potassium 50 MG No Losartan Potassium 50 MG metFORMIN HCl 500 MG metFORMIN HCl 500 MG No 1{table t_with_ a_meal} BID metFORMIN HCl 500 MG Flonase Flonase No Flonase Levothyroxi ne Sodium 50 MCG Levothyroxi ne Sodium 50 MCG No QD Levothyrox ine Sodium 50 MCG Metoprolol Tartrate 50 MG Metoprolol Tartrate 50 MG No 1{table t_with_ food} BID Metoprolol Tartrate 50 MG Pravachol 20 MG Pravachol 20 MG No 1{table t} QD Pravachol 20 MG metFORMIN HCl 1000 MG metFORMIN HCl 1000 MG No 1{table t_with_ a_meal} BID metFORMIN HCl 1000 MG Pravastatin Sodium 20 MG Pravastatin Sodium 20 MG No Pravastati n Sodium 20 MG Losartan Potassium 50 MG Losartan Potassium 50 MG No Losartan Potassium 50 MG metFORMIN HCl 500 MG metFORMIN HCl 500 MG No 1{table t_with_ a_meal} BID metFORMIN HCl 500 MG Flonase Flonase No Flonase Levothyroxi ne Sodium 50 MCG Levothyroxi ne Sodium 50 MCG No QD Levothyrox ine Sodium 50 MCG Metoprolol Tartrate 50 MG Metoprolol Tartrate 50 MG No 1{table t_with_ food} BID Metoprolol Tartrate 50 MG Pravachol 20 MG Pravachol 20 MG No 1{table t} QD Pravachol 20 MG metFORMIN HCl 1000 MG metFORMIN HCl 1000 MG No 1{table t_with_ a_meal} BID metFORMIN HCl 1000 MG Pravastatin Sodium 20 MG Pravastatin Sodium 20 MG No Pravastati n Sodium 20 MG Losartan Potassium 50 MG Losartan Potassium 50 MG No Losartan Potassium 50 MG metFORMIN HCl 500 MG metFORMIN HCl 500 MG No 1{table t_with_ a_meal} BID metFORMIN HCl 500 MG Flonase Flonase No Flonase Levothyroxi ne Sodium 50 MCG Levothyroxi ne Sodium 50 MCG No QD Levothyrox ine Sodium 50 MCG Metoprolol Tartrate 50 MG Metoprolol Tartrate 50 MG No 1{table t_with_ food} BID Metoprolol Tartrate 50 MG Pravachol 20 MG Pravachol 20 MG No 1{table t} QD Pravachol 20 MG Levothyroxi ne Sodium 50 MCG Levothyroxi ne Sodium 50 MCG No QD Levothyrox ine Sodium 50 MCG Losartan Potassium 50 MG Losartan Potassium 50 MG No Losartan Potassium 50 MG metFORMIN HCl 500 MG metFORMIN HCl 500 MG No 1{table t_with_ a_meal} BID metFORMIN HCl 500 MG metFORMIN HCl 1000 MG metFORMIN HCl 1000 MG No 1{table t_with_ a_meal} BID metFORMIN HCl 1000 MG Flonase Flonase No Flonase Pravastatin Sodium 20 MG Pravastatin Sodium 20 MG No Pravastati n Sodium 20 MG Pravastatin Sodium 20 MG Pravastatin Sodium 20 MG No Pravastati n Sodium 20 MG Losartan Potassium 50 MG Losartan Potassium 50 MG No Losartan Potassium 50 MG Levothyroxi ne Sodium 50 MCG Levothyroxi ne Sodium 50 MCG No QD Levothyrox ine Sodium 50 MCG Flonase Flonase No Flonase Pravachol 20 MG Pravachol 20 MG No 1{table t} QD Pravachol 20 MG Metoprolol Tartrate 50 MG Metoprolol Tartrate 50 MG No 1{table t_with_ food} BID Metoprolol Tartrate 50 MG metFORMIN HCl 1000 MG metFORMIN HCl 1000 MG No 1{table t_with_ a_meal} BID metFORMIN HCl 1000 MG metFORMIN HCl 500 MG metFORMIN HCl 500 MG No 1{table t_with_ a_meal} BID metFORMIN HCl 500 MG amLODIPine Besylate 2.5 MG amLODIPine Besylate 2.5 MG No 1{table t} QD amLODIPine Besylate 2.5 MG Pravastatin Sodium 20 MG Pravastatin Sodium 20 MG No Pravastati n Sodium 20 MG metFORMIN HCl 1000 MG metFORMIN HCl 1000 MG No 1{table t_with_ a_meal} BID metFORMIN HCl 1000 MG Levothyroxi ne Sodium 50 MCG Levothyroxi ne Sodium 50 MCG No QD Levothyrox ine Sodium 50 MCG Losartan Potassium 50 MG Losartan Potassium 50 MG No 1{table t} BID Losartan Potassium 50 MG Flonase Flonase No Flonase Pravachol 20 MG Pravachol 20 MG No 1{table t} QD Pravachol 20 MG Metoprolol Tartrate 50 MG Metoprolol Tartrate 50 MG No 1{table t_with_ food} BID Metoprolol Tartrate 50 MG Immunizations Ordered Immunization Name Filled Immunization Name Date Status Comments Source FLUZONE HIGH DOSE OVER 65 FLUZONE HIGH DOSE OVER 65 2022-05-24 10:03:00 Completed [facility] FLUZONE HIGH DOSE OVER 65 FLUZONE HIGH DOSE OVER 65 2022-05-24 10:03:00 Completed [facility] FluAD FluAD 2021-04-10 13:55:00 Completed [facility] FluAD FluAD 2021-04-10 13:55:00 Completed [facility] FluAD FluAD 2021-04-10 13:55:00 Completed [facility] FluAD FluAD 2021-04-10 13:55:00 Completed [facility] Moderna COVID-19 Vaccine Moderna COVID-19 Vaccine 2020-09-22 11:35:00 Completed [facility] Moderna COVID-19 Vaccine Moderna COVID-19 Vaccine 2020-09-22 11:35:00 Completed [facility] Moderna COVID-19 Vaccine Moderna COVID-19 Vaccine 2020-09-22 11:35:00 Completed [facility] Moderna COVID-19 Vaccine Moderna COVID-19 Vaccine 2020-09-22 11:35:00 Completed [facility] Moderna COVID-19 Vaccine Moderna COVID-19 Vaccine 2020-08-22 11:35:00 Completed [facility] Moderna COVID-19 Vaccine Moderna COVID-19 Vaccine 2020-08-22 11:35:00 Completed [facility] Moderna COVID-19 Vaccine Moderna COVID-19 Vaccine 2020-08-22 11:35:00 Completed [facility] Moderna COVID-19 Vaccine Moderna COVID-19 Vaccine 2020-08-22 11:35:00 Completed [facility] Fluzone Fluzone 2019-07-25 11:34:00 Completed [facility] Fluzone Fluzone 2019-07-25 11:34:00 Completed [facility] Fluzone Fluzone 2019-07-25 11:34:00 Completed [facility] Fluzone Fluzone 2019-07-25 11:34:00 Completed [facility] Prevnar 13 (PCV13) Prevnar 13 (PCV13) 2018-06-23 11:29:00 Completed [facility] Prevnar 13 (PCV13) Prevnar 13 (PCV13) 2018-06-23 11:29:00 Completed [facility] Prevnar 13 (PCV13) Prevnar 13 (PCV13) 2018-06-23 11:29:00 Completed [facility] Prevnar 13 (PCV13) Prevnar 13 (PCV13) 2018-06-23 11:29:00 Completed [facility] Adacel (Tdap) Adacel (Tdap) 2016-02-23 11:33:00 Completed [facility] Adacel (Tdap) Adacel (Tdap) 2016-02-23 11:33:00 Completed [facility] Adacel (Tdap) Adacel (Tdap) 2016-02-23 11:33:00 Completed [facility] Adacel (Tdap) Adacel (Tdap) 2016-02-23 11:33:00 Completed [facility] Moderna COVID-19 Vaccine Moderna COVID-19 Vaccine Unknown Completed [facility] Moderna COVID-19 Vaccine Moderna COVID-19 Vaccine Unknown Completed [facility] FluAD FluAD Unknown Completed [facility] Fluzone Fluzone Unknown Completed [facility] FLUZONE HIGH DOSE OVER 65 FLUZONE HIGH DOSE OVER 66 Unknown Completed [facility] Adacel (Tdap) Adacel (Tdap) Unknown Completed [facility] Prevnar 13 (PCV13) Prevnar 13 (PCV13) Unknown Completed [facility] Moderna COVID-19 Vaccine Moderna COVID-19 Vaccine Unknown Completed [facility] Moderna COVID-19 Vaccine Moderna COVID-19 Vaccine Unknown Completed [facility] FluAD FluAD Unknown Completed [facility] Fluzone Fluzone Unknown Completed [facility] FLUZONE HIGH DOSE OVER 65 FLUZONE HIGH DOSE OVER 65 Unknown Completed [facility] Adacel (Tdap) Adacel (Tdap) Unknown Completed [facility] Prevnar 13 (PCV13) Prevnar 13 (PCV13) Unknown Completed [facility] Moderna COVID-19 Vaccine Moderna COVID-19 Vaccine Unknown Completed [facility] Moderna COVID-19 Vaccine Moderna COVID-19 Vaccine Unknown Completed [facility] FluAD FluAD Unknown Completed [facility] Fluzone Fluzone Unknown Completed [facility] FLUZONE HIGH DOSE OVER 65 FLUZONE HIGH DOSE OVER 65 Unknown Completed [facility] Adacel (Tdap) Adacel (Tdap) Unknown Completed [facility] Prevnar 13 (PCV13) Prevnar 13 (PCV13) Unknown Completed [facility] Moderna COVID-19 Vaccine Moderna COVID-19 Vaccine Unknown Completed [facility] Moderna COVID-19 Vaccine Moderna COVID-19 Vaccine Unknown Completed [facility] FluAD FluAD Unknown Completed [facility] Fluzone Fluzone Unknown Completed [facility] FLUZONE HIGH DOSE OVER 65 FLUZONE HIGH DOSE OVER 65 Unknown Completed [facility] Adacel (Tdap) Adacel (Tdap) Unknown Completed [facility] Prevnar 13 (PCV13) Prevnar 13 (PCV13) Unknown Completed [facility] Moderna COVID-19 Vaccine Moderna COVID-19 Vaccine Unknown Completed [facility] Moderna COVID-19 Vaccine Moderna COVID-19 Vaccine Unknown Completed [facility] FluAD FluAD Unknown Completed [facility] Fluzone Fluzone Unknown Completed [facility] FLUZONE HIGH DOSE OVER 65 FLUZONE HIGH DOSE OVER 65 Unknown Completed [facility] Adacel (Tdap) Adacel (Tdap) Unknown Completed [facility] Prevnar 13 (PCV13) Prevnar 13 (PCV13) Unknown Completed [facility] Moderna COVID-19 Vaccine Moderna COVID-19 Vaccine Unknown Completed [facility] Moderna COVID-19 Vaccine Moderna COVID-19 Vaccine Unknown Completed [facility] FluAD FluAD Unknown Completed [facility] Fluzone Fluzone Unknown Completed [facility] FLUZONE HIGH DOSE OVER 65 FLUZONE HIGH DOSE OVER 65 Unknown Completed [facility] Adacel (Tdap) Adacel (Tdap) Unknown Completed [facility] Prevnar 13 (PCV13) Prevnar 13 (PCV13) Unknown Completed [facility] Moderna COVID-19 Vaccine Moderna COVID-19 Vaccine Unknown Completed [facility] Moderna COVID-19 Vaccine Moderna COVID-19 Vaccine Unknown Completed [facility] FluAD FluAD Unknown Completed [facility] Fluzone Fluzone Unknown Completed [facility] FLUZONE HIGH DOSE OVER 65 FLUZONE HIGH DOSE OVER 65 Unknown Completed [facility] Adacel (Tdap) Adacel (Tdap) Unknown Completed [facility] Prevnar 13 (PCV13) Prevnar 13 (PCV13) Unknown Completed [facility] Moderna COVID-19 Vaccine Moderna COVID-19 Vaccine Unknown Completed [facility] Moderna COVID-19 Vaccine Moderna COVID-19 Vaccine Unknown Completed [facility] FluAD FluAD Unknown Completed [facility] Fluzone Fluzone Unknown Completed [facility] FLUZONE HIGH DOSE OVER 65 FLUZONE HIGH DOSE OVER 65 Unknown Completed [facility] Adacel (Tdap) Adacel (Tdap) Unknown Completed [facility] Prevnar 13 (PCV13) Prevnar 13 (PCV13) Unknown Completed [facility] Moderna COVID-19 Vaccine Moderna COVID-19 Vaccine Unknown Completed [facility] Moderna COVID-19 Vaccine Moderna COVID-19 Vaccine Unknown Completed [facility] FluAD FluAD Unknown Completed [facility] Fluzone Fluzone Unknown Completed [facility] FLUZONE HIGH DOSE OVER 65 FLUZONE HIGH DOSE OVER 65 Unknown Completed [facility] Adacel (Tdap) Adacel (Tdap) Unknown Completed [facility] Prevnar 13 (PCV13) Prevnar 13 (PCV13) Unknown Completed [facility] Moderna COVID-19 Vaccine Moderna COVID-19 Vaccine Unknown Completed [facility] Moderna COVID-19 Vaccine Moderna COVID-19 Vaccine Unknown Completed [facility] FluAD FluAD Unknown Completed [facility] Fluzone Fluzone Unknown Completed [facility] FLUZONE HIGH DOSE OVER 65 FLUZONE HIGH DOSE OVER 65 Unknown Completed [facility] Adacel (Tdap) Adacel (Tdap) Unknown Completed [facility] Prevnar 13 (PCV13) Prevnar 13 (PCV13) Unknown Completed [facility] Moderna COVID-19 Vaccine Moderna COVID-19 Vaccine Unknown Completed [facility] Moderna COVID-19 Vaccine Moderna COVID-19 Vaccine Unknown Completed [facility] FluAD FluAD Unknown Completed [facility] Fluzone Fluzone Unknown Completed [facility] FLUZONE HIGH DOSE OVER 65 FLUZONE HIGH DOSE OVER 65 Unknown Completed [facility] Adacel (Tdap) Adacel (Tdap) Unknown Completed [facility] Prevnar 13 (PCV13) Prevnar 13 (PCV13) Unknown Completed [facility] Moderna COVID-19 Vaccine Moderna COVID-19 Vaccine Unknown Completed [facility] Moderna COVID-19 Vaccine Moderna COVID-19 Vaccine Unknown Completed [facility] FluAD FluAD Unknown Completed [facility] Fluzone Fluzone Unknown Completed [facility] FLUZONE HIGH DOSE OVER 65 FLUZONE HIGH DOSE OVER 65 Unknown Completed [facility] Adacel (Tdap) Adacel (Tdap) Unknown Completed [facility] Prevnar 13 (PCV13) Prevnar 13 (PCV13) Unknown Completed [facility] Moderna COVID-19 Vaccine Moderna COVID-19 Vaccine Unknown Completed [facility] Moderna COVID-19 Vaccine Moderna COVID-19 Vaccine Unknown Completed [facility] FluAD FluAD Unknown Completed [facility] Fluzone Fluzone Unknown Completed [facility] FLUZONE HIGH DOSE OVER 65 FLUZONE HIGH DOSE OVER 65 Unknown Completed [facility] Adacel (Tdap) Adacel (Tdap) Unknown Completed [facility] Prevnar 13 (PCV13) Prevnar 13 (PCV13) Unknown Completed [facility] Moderna COVID-19 Vaccine Moderna COVID-19 Vaccine Unknown Completed [facility] Moderna COVID-19 Vaccine Moderna COVID-19 Vaccine Unknown Completed [facility] FluAD FluAD Unknown Completed [facility] Fluzone Fluzone Unknown Completed [facility] FLUZONE HIGH DOSE OVER 65 FLUZONE HIGH DOSE OVER 65 Unknown Completed [facility] Adacel (Tdap) Adacel (Tdap) Unknown Completed [facility] Prevnar 13 (PCV13) Prevnar 13 (PCV13) Unknown Completed [facility] Moderna COVID-19 Vaccine Moderna COVID-19 Vaccine Unknown Completed [facility] Moderna COVID-19 Vaccine Moderna COVID-19 Vaccine Unknown Completed [facility] FluAD FluAD Unknown Completed [facility] Fluzone Fluzone Unknown Completed [facility] FLUZONE HIGH DOSE OVER 65 FLUZONE HIGH DOSE OVER 65 Unknown Completed [facility] Adacel (Tdap) Adacel (Tdap) Unknown Completed [facility] Prevnar 13 (PCV13) Prevnar 13 (PCV13) Unknown Completed [facility] Moderna COVID-19 Vaccine Moderna COVID-19 Vaccine Unknown Completed [facility] Moderna COVID-19 Vaccine Moderna COVID-19 Vaccine Unknown Completed [facility] FluAD FluAD Unknown Completed [facility] Fluzone Fluzone Unknown Completed [facility] FLUZONE HIGH DOSE OVER 65 FLUZONE HIGH DOSE OVER 65 Unknown Completed [facility] Adacel (Tdap) Adacel (Tdap) Unknown Completed [facility] Prevnar 13 (PCV13) Prevnar 13 (PCV13) Unknown Completed [facility] Moderna COVID-19 Vaccine Moderna COVID-19 Vaccine Unknown Completed [facility] Moderna COVID-19 Vaccine Moderna COVID-19 Vaccine Unknown Completed [facility] FluAD FluAD Unknown Completed [facility] Fluzone Fluzone Unknown Completed [facility] FLUZONE HIGH DOSE OVER 65 FLUZONE HIGH DOSE OVER 65 Unknown Completed [facility] Adacel (Tdap) Adacel (Tdap) Unknown Completed [facility] Prevnar 13 (PCV13) Prevnar 13 (PCV13) Unknown Completed [facility] Moderna COVID-19 Vaccine Moderna COVID-19 Vaccine Unknown Completed [facility] Moderna COVID-19 Vaccine Moderna COVID-19 Vaccine Unknown Completed [facility] FluAD FluAD Unknown Completed [facility] Fluzone Fluzone Unknown Completed [facility] FLUZONE HIGH DOSE OVER 65 FLUZONE HIGH DOSE OVER 65 Unknown Completed [facility] Adacel (Tdap) Adacel (Tdap) Unknown Completed [facility] Prevnar 13 (PCV13) Prevnar 13 (PCV13) Unknown Completed [facility] Moderna COVID-19 Vaccine Moderna COVID-19 Vaccine Unknown Completed [facility] Moderna COVID-19 Vaccine Moderna COVID-19 Vaccine Unknown Completed [facility] FluAD FluAD Unknown Completed [facility] Fluzone Fluzone Unknown Completed [facility] FLUZONE HIGH DOSE OVER 65 FLUZONE HIGH DOSE OVER 65 Unknown Completed [facility] Adacel (Tdap) Adacel (Tdap) Unknown Completed [facility] Prevnar 13 (PCV13) Prevnar 13 (PCV13) Unknown Completed [facility] Moderna COVID-19 Vaccine Moderna COVID-19 Vaccine Unknown Completed [facility] Moderna COVID-19 Vaccine Moderna COVID-19 Vaccine Unknown Completed [facility] FluAD FluAD Unknown Completed [facility] Fluzone Fluzone Unknown Completed [facility] FLUZONE HIGH DOSE OVER 65 FLUZONE HIGH DOSE OVER 65 Unknown Completed [facility] Adacel (Tdap) Adacel (Tdap) Unknown Completed [facility] Prevnar 13 (PCV13) Prevnar 13 (PCV13) Unknown Completed [facility] Moderna COVID-19 Vaccine Moderna COVID-19 Vaccine Unknown Completed [facility] Moderna COVID-19 Vaccine Moderna COVID-19 Vaccine Unknown Completed [facility] FluAD FluAD Unknown Completed [facility] Fluzone Fluzone Unknown Completed [facility] FLUZONE HIGH DOSE OVER 65 FLUZONE HIGH DOSE OVER 65 Unknown Completed [facility] Adacel (Tdap) Adacel (Tdap) Unknown Completed [facility] Prevnar 13 (PCV13) Prevnar 13 (PCV13) Unknown Completed [facility] Moderna COVID-19 Vaccine Moderna COVID-19 Vaccine Unknown Completed [facility] Moderna COVID-19 Vaccine Moderna COVID-19 Vaccine Unknown Completed [facility] FluAD FluAD Unknown Completed [facility] Fluzone Fluzone Unknown Completed [facility] FLUZONE HIGH DOSE OVER 65 FLUZONE HIGH DOSE OVER 65 Unknown Completed [facility] Adacel (Tdap) Adacel (Tdap) Unknown Completed [facility] Prevnar 13 (PCV13) Prevnar 13 (PCV13) Unknown Completed [facility] Moderna COVID-19 Vaccine Moderna COVID-19 Vaccine Unknown Completed [facility] Moderna COVID-19 Vaccine Moderna COVID-19 Vaccine Unknown Completed [facility] FluAD FluAD Unknown Completed [facility] Fluzone Fluzone Unknown Completed [facility] FLUZONE HIGH DOSE OVER 65 FLUZONE HIGH DOSE OVER 65 Unknown Completed [facility] Adacel (Tdap) Adacel (Tdap) Unknown Com[facility] Prevnar 13 (PCV13) Prevnar 13 (PCV13) Unknown [facility]pleted [facility] Vital Signs Vital Name Observation Time Observation Value Comments Jose greenberg height 2023-09-20 10:20:00 65.5 [in_i] [facility] weight 2023-09-20 10:20:00 110.8 [lb_av] [facility] temperature 2023-09-20 10:20:00 97.4 [degF] Com [facility] bmi 2023-09-20 10:20:00 18.16 kg/m2 [facility] oximetry 2023-09-20 10:20:00 98 % [facility] blood pressure systolic 2023-09-20 10:20:00 122 mm[Hg] [facility] blood pressure diastolic 2023-09-20 10:20:00 72 mm[Hg] [facility] height 2023-06-21 09:50:00 65.5 [in_i] [facility] weight 2023-06-21 09:50:00 114.8 [lb_av] Co [facility] temperature 2023-06-21 09:50:00 97.5 [degF] Com [facility] bmi 2023-06-21 09:50:00 18.81 kg/m2 [facility] oximetry 2023-06-21 09:50:00 96 % [facility] blood pressure systolic 2023-06-21 09:50:00 138 mm[Hg] [facility] blood pressure diastolic 2023-06-21 09:50:00 82 mm[Hg] [facility] height 2023-04-17 09:40:00 65.5 [in_i] [facility] weight 2023-04-17 09:40:00 115.4 [lb_av] [facility] temperature 2023-04-17 09:40:00 97.9 [degF] Com [facility] bmi 2023-04-17 09:40:00 18.91 kg/m2 [facility] oximetry 2023-04-17 09:40:00 96 % [facility] respiratory rate 2023-04-17 09:40:00 16 /min [facility] blood pressure systolic 2023-04-17 09:40:00 139 mm[Hg] [facility] blood pressure diastolic 2023-04-17 09:40:00 75 mm[Hg] [facility] height 2023-03-14 09:30:00 65.5 [in_i] [facility] weight 2023-03-14 09:30:00 117.6 [lb_av] [facility] temperature 2023-03-14 09:30:00 98.0 [degF] Com [facility] bmi 2023-03-14 09:30:00 19.27 kg/m2 [facility] oximetry 2023-03-14 09:30:00 97 % [facility] respiratory rate 2023-03-14 09:30:00 17 /min [facility] blood pressure systolic 2023-03-14 09:30:00 126 mm[Hg] [facility] blood pressure diastolic 2023-03-14 09:30:00 73 mm[Hg] [facility] height 2023-03-14 09:30:00 65.5 [in_i] [facility] weight 2023-03-14 09:30:00 117.6 [lb_av] [facility] 2023-03-14 09:30:00 98.0 [degF] Com [facility] bmi 2023-03-14 09:30:00 19.27 kg/m2 [facility] oximetry 2023-03-14 09:30:00 97 % [facility] respiratory rate 2023-03-14 09:30:00 17 /min [facility] blood pressure systolic 2023-03-14 09:30:00 126 mm[Hg] [facility] blood pressure diastolic 2023-03-14 09:30:00 73 mm[Hg] [facility] height 2023-01-28 10:40:00 65.5 [in_i] [facility] weight 2023-01-28 10:40:00 117 [lb_av] [facility] temperature 2023-01-28 10:40:00 97.2 [degF] Com [facility] bmi 2023-01-28 10:40:00 19.17 kg/m2 [facility] oximetry 2023-01-28 10:40:00 96 % [facility] respiratory rate 2023-01-28 10:40:00 17 /min [facility] blood pressure systolic 2023-01-28 10:40:00 139 mm[Hg] [facility] blood pressure diastolic 2023-01-28 10:40:00 74 mm[Hg] [facility] height 2023-01-09 08:40:00 65.5 [in_i] [facility] weight 2023-01-09 08:40:00 116.0 [lb_av] [facility] temperature 2023-01-09 08:40:00 97.2 [degF] Com [facility] bmi 2023-01-09 08:40:00 19.01 kg/m2 [facility] oximetry 2023-01-09 08:40:00 97 % [facility] respiratory rate 2023-01-09 08:40:00 17 /min [facility] blood pressure systolic 2023-01-09 08:40:00 138 mm[Hg] [facility] blood pressure diastolic 2023-01-09 08:40:00 82 mm[Hg] [facility] height 2022-12-04 09:20:00 65.5 [in_i] [facility] weight 2022-12-04 09:20:00 121.0 [lb_av] [facility] temperature 2022-12-04 09:20:00 97.3 [degF] Com [facility] bmi 2022-12-04 09:20:00 19.83 kg/m2 [facility] oximetry 2022-12-04 09:20:00 97 % [facility] respiratory rate 2022-12-04 09:20:00 16 /min [facility] blood pressure systolic 2022-12-04 09:20:00 139 mm[Hg] [facility] blood pressure diastolic 2022-12-04 09:20:00 88 mm[Hg] [facility] height 2022-08-22 10:20:00 65.5 [in_i] [facility] weight 2022-08-22 10:20:00 117.9 [lb_av] [facility] temperature 2022-08-22 10:20:00 97.1 [degF] [facility] bmi 2022-08-22 10:20:00 19.32 kg/m2 [facility] oximetry 2022-08-22 10:20:00 96 % [facility] respiratory rate 2022-08-22 10:20:00 18 /min [facility] blood pressure systolic 2022-08-22 10:20:00 121 mm[Hg] [facility] blood pressure diastolic 2022-08-22 10:20:00 63 mm[Hg] [facility] height 2022-05-24 09:40:00 65.5 [in_i] [facility] weight 2022-05-24 09:40:00 117.7 [lb_av] [facility] temperature 2022-05-24 09:40:00 97.2 [degF] [facility] bmi 2022-05-24 09:40:00 19.29 kg/m2 [facility] oximetry 2022-05-24 09:40:00 91 % [facility] respiratory rate 2022-05-24 09:40:00 16 /min [facility] blood pressure systolic 2022-05-24 09:40:00 120 mm[Hg] [facility] blood pressure diastolic 2022-05-24 09:40:00 67 mm[Hg] [facility] height 2022-02-21 14:00:00 65.5 [in_i] [facility] weight 2022-02-21 14:00:00 117 [lb_av] [facility] temperature 2022-02-21 14:00:00 97.6 [degF] [facility] bmi 2022-02-21 14:00:00 19.17 kg/m2 [facility] oximetry 2022-02-21 14:00:00 94 % [facility] respiratory rate 2022-02-21 14:00:00 17 /min [facility] blood pressure systolic 2022-02-21 14:00:00 132 mm[Hg] [facility] blood pressure diastolic 2022-02-21 14:00:00 62 mm[Hg] [facility] height 2022-02-21 14:40:00 65.5 [in_i] [facility] weight 2022-02-21 14:40:00 117 [lb_av] [facility] temperature 2022-02-21 14:40:00 97.6 [degF] [facility] bmi 2022-02-21 14:40:00 19.17 kg/m2 [facility] oximetry 2022-02-21 14:40:00 94 % [facility] respiratory rate 2022-02-21 14:40:00 17 /min [facility] blood pressure systolic 2022-02-21 14:40:00 132 mm[Hg] [facility] blood pressure diastolic 2022-02-21 14:40:00 62 mm[Hg] [facility] Encounters Start Date/Time End Date/Time Encounter Type Admission Type Attending [facility] Facility Care Department Encounter ID Source 2023-05-10 15:36:00 Outpatient [place], [facility] [id number] [facility] 2023-04-16 10:57:00 Outpatient [place], [facility] [id number] [facility] 2023-03-12 09:35:00 Outpatient Costa, Fausto [facility] [id number] [facility] 2022-11-30 09:26:01 Outpatient [facility], Fausto [facility] [id number] [facility] 2022-08-22 08:20:01 Outpatient [place], Fausto [facility] [id number] [facility] 2022-05-24 09:28:01 Outpatient [facility], Fausto [facility] [id number] [facility] 2022-05-23 08:22:01 Outpatient Costa, Fausto [facility] [id number] [facility] 2022-02-21 13:33:01 Outpatient Fausto Costa [facility] [id number] [facility] 2023-09-20 00:00:00 2023-09-20 00:00:00 OFFICE VISIT ESTAB PT LEVEL 4 [facility] [id number] [facility] 2023-09-13 00:00:00 2023-09-13 00:00:00 (TEL) [facility] [id number] [facility] 2023-08-14 16:30:00 2023-08-14 17:30:00 Initial D2Me Shalonda Molina [id number] 2023-06-21 00:00:00 2023-06-21 00:00:00 OFFICE VISIT ESTAB PT LEVEL 4 [facility] [id number] [facility] 2023-06-06 00:00:00 2023-06-06 00:00:00 Outpatient GC_GCBZW_Ka diyala_S PRIV PRIV [id number] [facility] 2023-05-30 00:00:00 2023-05-30 00:00:00 (TEL) [facility] [id number] [facility] 2023-05-20 00:00:00 2023-05-20 00:00:00 (TEL) [facility] [id number] [facility] 2023-05-17 00:00:00 2023-05-17 00:00:00 Outpatient BWilliams DMG DMG [id number] [facility] 2023-04-22 00:00:00 2023-04-22 00:00:00 Outpatient GC_GCBZW_Ka diyala_S PRIV PRIV [id number] [facility] 2023-04-22 00:00:00 2023-04-22 00:00:00 Outpatient GC_GCBZW_Ka diyala_S PRIV PRIV [id number] [facility] 2023-04-22 00:00:00 2023-04-22 00:00:00 Outpatient GC_GCBZW_Ka diyala_S PRIV PRIV [id number] [facility] 2023-04-17 00:00:00 2023-04-17 00:00:00 OFFICE VISIT ESTAB PT LEVEL 4 [facility] [id number] [facility] 2023-04-13 00:00:00 2023-04-13 00:00:00 Outpatient GC_GCBZW_Ka diyala_S PRIV PRIV [id number] [facility] 2023-04-12 00:00:00 2023-04-12 00:00:00 (TEL) [facility]C STL[facility]C [id number] [facility] 2023-04-09 00:00:00 2023-04-09 00:00:00 (TEL) [facility] STL[facility]C [id number] [facility] 2023-04-04 00:00:00 2023-04-04 00:00:00 (TEL) [facility]C STL[facility]C [id number] [facility] 2023-03-25 00:00:00 2023-03-25 00:00:00 (TEL) [facility] STL[facility]C [id number] [facility] 2023-03-15 00:00:00 2023-03-15 00:00:00 Outpatient GC_GCBZW_Ka diyala_S PRIV PRIV [id number] [facility] 2023-03-14 00:00:00 2023-03-14 00:00:00 OFFICE VISIT ESTAB PT LEVEL 4 [facility] STL[facility]C [id number] [facility] 2023-03-14 00:00:00 2023-03-14 00:00:00 [facility] V[facility] [id number] [facility] 2023-03-14 00:00:00 2023-03-14 00:00:00 (TEL) [facility] [id number] [facility] 2023-03-13 00:00:00 2023-03-13 00:00:00 Outpatient GC_GCBZW_Ka diyala_S PRIV PRIV [id number] [facility] 2023-01-30 00:00:00 2023-01-30 00:00:00 Outpatient GC_GCBZW_Ka diyala_S PRIV PRIV [id number] [facility] 2023-01-30 00:00:00 2023-01-30 00:00:00 Outpatient GC_GCBZW_Ka diyala_S PRIV PRIV [id number] [facility] 2023-01-28 00:00:00 2023-01-28 00:00:00 OFFICE VISIT ESTAB PT LEVEL 3 [facility] [id number] [facility] 2023-01-28 00:00:00 2023-01-28 00:00:00 (TEL) [facility] ST[facility] [id number] [facility] 2023-01-18 00:00:00 2023-01-18 00:00:00 (TEL) [facility] ST[facility] [id number] [facility] 2023-01-11 14:30:00 2023-01-11 15:30:00 KAL Quiroz [id number] 2023-01-11 00:00:00 2023-01-11 00:00:00 (TEL) [facility] STLC [id number] [facility] 2023-01-09 00:00:00 2023-01-09 00:00:00 OFFICE VISIT ESTAB PT LEVEL 4 [facility]C STL[facility]C [id number] [facility] 2023-01-08 00:00:00 2023-01-08 00:00:00 (TEL) STLMLC STLMLC [id number] [facility] 2022-12-04 00:00:00 2022-12-04 00:00:00 OFFICE VISIT ESTAB PT LEVEL 4 [facility] STL[facility]C [id number] [facility] 2022-11-12 00:00:00 2022-11-12 00:00:00 (TEL) STLMLC STLMLC [id number] [facility] 2022-09-12 00:00:00 2022-09-12 00:00:00 (TEL) STLMLC STLMLC [id number] [facility] 2022-08-22 00:00:00 2022-08-22 00:00:00 OFFICE VISIT ESTAB PT LEVEL 4 [facility]C [id number] [facility] [place] 2022-07-03 00:00:00 2022-07-03 00:00:00 (TEL) STLMLC STLMLC [id number] [facility] [place] 2022-05-24 00:00:00 2022-05-24 00:00:00 OFFICE VISIT ESTAB PT LEVEL 4 STLMLC STLMLC [id number] [facility] [place] 2022-03-13 14:30:00 2022-03-13 15:30:00 KAL Leonard 2.16.840. [id number] 2.16.840.1. [id number] [facility] 2022-03-13 00:00:00 2022-03-13 00:00:[address] [facility] [place] [id number] 09 [facility] 2022-03-13 00:00:00 2022-03-13 00:00[facility] [id number] 2022-02-21 00:00:00 2022-02-21 00:00:00 [facility] [id number] [place] 2022-02-21 00:00:00 2022-02-21 00:00:00 [facility] [id number] [facility] [place] 2022-01-05 03:28:00 2022-01-05 03:28:00 Outpatient [facility] [id number] 0715 [facility] 2021-04-07 18:00:00 2021-04-07 19:00:00 CAV Tommadelyn Quiroz 2.16.840. [id number] 2.16.840.1. [id number] [facility] 2021-03-28 06:42:00 2021-03-28 06:42:00 Outpatient [facility] [id number] 2020-10-24 06:01:00 2020-10-24 06:01:00 [facility] [id number] 2020-10-17 08:00:00 2020-10-17 08:00:00 [facility] [id number] 0426 [facility] Results Test Description Test Time Test Comments Results Result Co mments Source HEMOGLOBIN [id number] 00:00:00* Test Item Value Reference Range Interpretation Comme nts HEMOGLOBIN A1c (test code = 4548-4) 7.1 % See_Comment H [Automated [employer]] The system which generated this result transmitted reference range: 4.2-5.6 %. The reference range was not used to interpret this result as normal/abnormal. TSH REFLEX TO FREE [id number] 00:00:00* Test Item Value Reference Range Interpretation Comme nts TSH REFLEX TO FREE T4 (test code = 76654-6) 1.380 UIU/ML See_Comment [Automated [employer]] The system which generated this result transmitted reference range: 0.400-4.100 UIU/ML. The reference range was not used to interpret this result as normal/abnormal. LIPID PANEL WITH REFLEX DIRECT [id number] 00:00:00* Test Item Value Reference Range Interpretation Comme nts CALC LDL CHOL (test code = 02035-2) 51 MG/DL See_Comment [Automated messa ge] The system which generated this result transmitted reference range: <100 MG/DL. The reference range was not used to interpret this result as normal/abnormal. CHOLESTEROL (test code = 2093-3) 151 MG/DL See_Comment [Automated messa ge] The system which generated this result transmitted reference range: <200 MG/DL. The reference range was not used to interpret this result as normal/abnormal. HDL CHOLESTEROL (test code = 2085-9) 86 MG/DL See_Comment [Automated messa ge] The system which generated this result transmitted reference range: >39 MG/DL. The reference range was not used to interpret this result as normal/abnormal. RISK RATIO LDL/HDL (test code = 49256-2) 0.59 RATIO See_Comment [Automated message] The system which generated this result transmitted reference range: <3.22 RATIO. The reference range was not used to interpret this result as normal/abnormal. TRIGLYCERIDES (test code = 2571-8) 67 MG/DL See_Comment [Automated messa ge] The system which generated this result transmitted reference range: <150 MG/DL. The reference range was not used to interpret this result as normal/abnormal. ALBUMIN/CREATININE RATIO, RANDOM [id number] 00:00:00* Test Item Value Reference Range Interpretation Comme nts ALBUMIN, URINE, RANDOM (test code = 03073-3) 2.3 MG/DL NOT ESTAB MG/DL CALC ALBUMIN/CREAT, RND (test code = 98412-9) 11 MG/G See_Comment [Automated messa ge] The system which generated this result transmitted reference range: <30 MG/G. The reference range was not used to interpret this result as normal/abnormal. CREATININE, URINE, CONC. (test code = 2161-8) 212.3 MG/DL NOT ESTAB MG/DL COMPREHENSIVE METABOLIC [id number] 00:00:00* Test Item Value Reference Range Interpretation Comme nts ALBUMIN (test code = 1751-7) 4.5 G/DL See_Comment [Automated messa ge] The system which generated this result transmitted reference range: 3.5-5.2 G/DL. The reference range was not used to interpret this result as normal/abnormal. ALKALINE PHOSPHATASE (test code = 6768-6) 72 U/L See_Comment [Automated message] The system which generated this result transmitted reference range: 40-142 U/L. The reference range was not used to interpret this result as normal/abnormal. BILIRUBIN, TOTAL (test code = 1975-2) 0.4 MG/DL See_Comment [Automated message] The system which generated this result transmitted reference range: <=1.2 MG/DL. The reference range was not used to interpret this result as normal/abnormal. BUN (test code = 3094-0) 16 MG/DL See_Comment [Automated messa ge] The system which generated this result transmitted reference range: 8-23 MG/DL. The reference range was not used to interpret this result as normal/abnormal. CALCIUM (test code = 89238-6) 10.1 MG/DL See_Comment [Automated messa ge] The system which generated this result transmitted reference range: 8.5-10.5 MG/DL. The reference range was not used to interpret this result as normal/abnormal. CALC A/G RATIO (test code = 1759-0) 1.8 RATIO See_Comment [Automated messa ge] The system which generated this result transmitted reference range: 1.0-2.6 RATIO. The reference range was not used to interpret this result as normal/abnormal. CALC BUN/CREAT (test code = 3097-3) 21 RATIO See_Comment [Automated messa ge] The system which generated this result transmitted reference range: 6-28 RATIO. The reference range was not used to interpret this result as normal/abnormal. CALC GLOBULIN (test code = 43751-0) 2.5 G/DL See_Comment [Automated messa ge] The system which generated this result transmitted reference range: 1.9-3.7 G/DL. The reference range was not used to interpret this result as normal/abnormal. CARBON DIOXIDE (test code = 1963-8) 32 MEQ/L See_Comment H [Automated messa ge] The system which generated this result transmitted reference range: 19-31 MEQ/L. The reference range was not used to interpret this result as normal/abnormal. CHLORIDE (test code = 2075-0) 96 MEQ/L See_Comment [Automated messa ge] The system which generated this result transmitted reference range: 95-107 MEQ/L. The reference range was not used to interpret this result as normal/abnormal. CREATININE (test code = 2160-0) 0.76 MG/DL See_Comment [Automated messa ge] The system which generated this result transmitted reference range: 0.60-1.30 MG/DL. The reference range was not used to interpret this result as normal/abnormal. eGFR (2020 CKD-EPI) (test code = 52621-5) 81 ML/MIN/1.73 See_Comment [Automated messa ge] The system which generated this result transmitted reference range: >60 ML/MIN/1.73. The reference range was not used to interpret this result as normal/abnormal. GLUCOSE (test code = 1558-6) 214 MG/DL See_Comment H [Automated messa ge] The system which generated this result transmitted reference range: 70-99 MG/DL. The reference range was not used to interpret this result as normal/abnormal. POTASSIUM (test code = 2823-3) 4.7 MEQ/L See_Comment [Automated messa ge] The system which generated this result transmitted reference range: 3.5-5.4 MEQ/L. The reference range was not used to interpret this result as normal/abnormal. PROTEIN, TOTAL (test code = 2885-2) 7.0 G/DL See_Comment [Automated messa ge] The system which generated this result transmitted reference range: 6.1-8.3 G/DL. The reference range was not used to interpret this result as normal/abnormal. AST (test code = 1920-8) 26 U/L See_Comment [Automated messa ge] The system which generated this result transmitted reference range: 9-40 U/L. The reference range was not used to interpret this result as normal/abnormal. ALT (test code = 1742-6) 21 U/L See_Comment [Automated messa ge] The system which generated this result transmitted reference range: 5-40 U/L. The reference range was not used to interpret this result as normal/abnormal. SODIUM (test code = 2951-2) 138 MEQ/L See_Comment [Automated messa ge] The system which generated this result transmitted reference range: 133-146 MEQ/L. The reference range was not used to interpret this result as normal/abnormal. CBC W/AUTO [id number] 00:00:00* Test Item Value Reference Range Interpretation Comme nts NUCLEATED RBCS (test code = 75627-1) 0.0 /100 WBC'S See_Comment [Automated messa ge] The system which generated this result transmitted reference range: 0.0 /100 WBC'S. The reference range was not used to interpret this result as normal/abnormal. ABSOLUTE EOSINOPHILS (test code = 14460-1) 0.09 K/UL See_Comment [Automated messa ge] The system which generated this result transmitted reference range: 0.00-0.50 K/UL. The reference range was not used to interpret this result as normal/abnormal. ABSOLUTE LYMPHOCYTES (test code = 17906-8) 1.50 K/UL See_Comment [Automated messa ge] The system which generated this result transmitted reference range: 1.00-4.00 K/UL. The reference range was not used to interpret this result as normal/abnormal. ABSOLUTE MONOCYTES (test code = 48175-6) 0.65 K/UL See_Comment [Automated messa ge] The system which generated this result transmitted reference range: 0.20-1.00 K/UL. The reference range was not used to interpret this result as normal/abnormal. ABSOLUTE NEUTROPHILS (test code = 01744-2) 6.11 K/UL See_Comment [Automated messa ge] The system which generated this result transmitted reference range: 1.50-7.50 K/UL. The reference range was not used to interpret this result as normal/abnormal. BASOPHILS (test code = 64942-6) 0.7 % EOSINOPHILS (test code = 61967-1) 1.1 % HEMATOCRIT (test code = 39769-7) 43.6 % See_Comment [Automated messa ge] The system which generated this result transmitted reference range: 34.0-45.0 %. The reference range was not used to interpret this result as normal/abnormal. HEMOGLOBIN (test code = 718-7) 14.3 G/DL See_Comment [Automated messa ge] The system which generated this result transmitted reference range: 11.5-15.5 G/DL. The reference range was not used to interpret this result as normal/abnormal. LYMPHOCYTES (test code = 20649-4) 17.8 % MCH (test code = 90997-4) 30.6 PG See_Comment [Automated messa ge] The system which generated this result transmitted reference range: 25.0-33.0 PG. The reference range was not used to interpret this result as normal/abnormal. MCHC (test code = 75570-8) 32.8 G/DL See_Comment [Automated messa ge] The system which generated this result transmitted reference range: 31.0-36.0 G/DL. The reference range was not used to interpret this result as normal/abnormal. MCV (test code = 34566-2) 93.4 fL See_Comment [Automated messa ge] The system which generated this result transmitted reference range: 80.0-99.0 fL. The reference range was not used to interpret this result as normal/abnormal. MONOCYTES (test code = 19056-3) 7.7 % NEUTROPHILS (test code = 34975-3) 72.5 % PLATELET COUNT (test code = 55583-5) 234 K/UL See_Comment [Automated messa ge] The system which generated this result transmitted reference range: 130-400 K/UL. The reference range was not used to interpret this result as normal/abnormal. RBC (test code = 89983-9) 4.67 M/UL See_Comment [Automated messa ge] The system which generated this result transmitted reference range: 3.80-5.40 M/UL. The reference range was not used to interpret this result as normal/abnormal. RDW (test code = 75597-6) 11.8 % See_Comment [Automated messa ge] The system which generated this result transmitted reference range: 11.5-15.0 %. The reference range was not used to interpret this result as normal/abnormal. WBC (test code = 40989-2) 8.4 K/UL See_Comment [Automated messa ge] The system which generated this result transmitted reference range: 3.5-11.0 K/UL. The reference range was not used to interpret this result as normal/abnormal. HEMOGLOBIN [id number] 00:00:00* Test Item Value Reference Range Interpretation Comme nts HEMOGLOBIN A1c (test code = 4548-4) 7.6 % See_Comment H [Automated [employer] ge] The system which generated this result transmitted reference range: 4.2-5.6 %. The reference range was not used to interpret this result as normal/abnormal. TSH REFLEX TO FREE [id number] 00:00:00* Test Item Value Reference Range Interpretation Comme nts TSH REFLEX TO FREE T4 (test code = 75932-5) 1.600 UIU/ML See_Comment [Automated [employer] ge] The system which generated this result transmitted reference range: 0.400-4.100 UIU/ML. The reference range was not used to interpret this result as normal/abnormal. LIPID PANEL WITH REFLEX DIRECT [id number] 00:00:00* Test Item Value Reference Range Interpretation Comme nts CALC LDL CHOL (test code = 68267-0) 56 MG/DL See_Comment [Automated [employer] ge] The system which generated this result transmitted reference range: <100 MG/DL. The reference range was not used to interpret this result as normal/abnormal. CHOLESTEROL (test code = 2093-3) 157 MG/DL See_Comment [Automated [employer] ge] The system which generated this result transmitted reference range: <200 MG/DL. The reference range was not used to interpret this result as normal/abnormal. HDL CHOLESTEROL (test code = 2085-9) 84 MG/DL See_Comment [Automated [employer] ge] The system which generated this result transmitted reference range: >39 MG/DL. The reference range was not used to interpret this result as normal/abnormal. RISK RATIO LDL/HDL (test code = 73241-5) 0.67 RATIO See_Comment [Automated message] The system which generated this result transmitted reference range: <3.22 RATIO. The reference range was not used to interpret this result as normal/abnormal. TRIGLYCERIDES (test code = 2571-8) 87 MG/DL See_Comment [Automated [employer] ge] The system which generated this result transmitted reference range: <150 MG/DL. The reference range was not used to interpret this result as normal/abnormal. ALBUMIN/CREATININE RATIO, RANDOM [id number] 00:00:00* Test Item Value Reference Range Interpretation Comme nts ALBUMIN, URINE, RANDOM (test code = 51231-2) 0.7 MG/DL NOT ESTAB MG/DL CALC ALBUMIN/CREAT, RND (test code = 65347-7) 9 MG/G See_Comment [Automated messa ge] The system which generated this result transmitted reference range: <30 MG/G. The reference range was not used to interpret this result as normal/abnormal. CREATININE, URINE, CONC. (test code = 2161-8) 79.1 MG/DL NOT ESTAB MG/DL COMPREHENSIVE METABOLIC [id number] 00:00:00* Test Item Value Reference Range Interpretation Comme nts ALBUMIN (test code = 1751-7) 4.2 G/DL See_Comment [Automated messa ge] The system which generated this result transmitted reference range: 3.5-5.2 G/DL. The reference range was not used to interpret this result as normal/abnormal. ALKALINE PHOSPHATASE (test code = 6768-6) 79 U/L See_Comment [Automated message] The system which generated this result transmitted reference range: 40-142 U/L. The reference range was not used to interpret this result as normal/abnormal. BILIRUBIN, TOTAL (test code = 1975-2) 0.2 MG/DL See_Comment [Automated message] The system which generated this result transmitted reference range: <=1.2 MG/DL. The reference range was not used to interpret this result as normal/abnormal. BUN (test code = 3094-0) 27 MG/DL See_Comment H [Automated messa ge] The system which generated this result transmitted reference range: 8-23 MG/DL. The reference range was not used to interpret this result as normal/abnormal. CALCIUM (test code = 09605-2) 9.7 MG/DL See_Comment [Automated messa ge] The system which generated this result transmitted reference range: 8.5-10.5 MG/DL. The reference range was not used to interpret this result as normal/abnormal. CALC A/G RATIO (test code = 1759-0) 1.8 RATIO See_Comment [Automated messa ge] The system which generated this result transmitted reference range: 1.0-2.6 RATIO. The reference range was not used to interpret this result as normal/abnormal. CALC BUN/CREAT (test code = 3097-3) 28 RATIO See_Comment [Automated messa ge] The system which generated this result transmitted reference range: 6-28 RATIO. The reference range was not used to interpret this result as normal/abnormal. CALC GLOBULIN (test code = 21529-7) 2.4 G/DL See_Comment [Automated messa ge] The system which generated this result transmitted reference range: 1.9-3.7 G/DL. The reference range was not used to interpret this result as normal/abnormal. CARBON DIOXIDE (test code = 1962-8) 31 MEQ/L See_Comment [Automated messa ge] The system which generated this result transmitted reference range: 19-31 MEQ/L. The reference range was not used to interpret this result as normal/abnormal. CHLORIDE (test code = 2075-0) 99 MEQ/L See_Comment [Automated messa ge] The system which generated this result transmitted reference range: 95-107 MEQ/L. The reference range was not used to interpret this result as normal/abnormal. CREATININE (test code = 2160-0) 0.95 MG/DL See_Comment [Automated messa ge] The system which generated this result transmitted reference range: 0.60-1.30 MG/DL. The reference range was not used to interpret this result as normal/abnormal. eGFR (2020 CKD-EPI) (test code = 37177-8) 62 ML/MIN/1.73 See_Comment [Automated messa ge] The system which generated this result transmitted reference range: >60 ML/MIN/1.73. The reference range was not used to interpret this result as normal/abnormal. GLUCOSE (test code = 1558-6) 254 MG/DL See_Comment H [Automated messa ge] The system which generated this result transmitted reference range: 70-99 MG/DL. The reference range was not used to interpret this result as normal/abnormal. POTASSIUM (test code = 2823-3) 4.9 MEQ/L See_Comment [Automated messa ge] The system which generated this result transmitted reference range: 3.5-5.4 MEQ/L. The reference range was not used to interpret this result as normal/abnormal. PROTEIN, TOTAL (test code = 2885-2) 6.6 G/DL See_Comment [Automated messa ge] The system which generated this result transmitted reference range: 6.1-8.3 G/DL. The reference range was not used to interpret this result as normal/abnormal. AST (test code = 1920-8) 26 U/L See_Comment [Automated messa ge] The system which generated this result transmitted reference range: 9-40 U/L. The reference range was not used to interpret this result as normal/abnormal. ALT (test code = 1742-6) 25 U/L See_Comment [Automated messa ge] The system which generated this result transmitted reference range: 5-40 U/L. The reference range was not used to interpret this result as normal/abnormal. SODIUM (test code = 2951-2) 139 MEQ/L See_Comment [Automated messa ge] The system which generated this result transmitted reference range: 133-146 MEQ/L. The reference range was not used to interpret this result as normal/abnormal. CBC W/AUTO [id number] 00:00:00* Test Item Value Reference Range Interpretation Comme nts NUCLEATED RBCS (test code = 93243-9) 0.0 /100 WBC'S See_Comment [Automated messa ge] The system which generated this result transmitted reference range: 0.0 /100 WBC'S. The reference range was not used to interpret this result as normal/abnormal. ABSOLUTE EOSINOPHILS (test code = 99422-7) 0.09 K/UL See_Comment [Automated messa ge] The system which generated this result transmitted reference range: 0.00-0.50 K/UL. The reference range was not used to interpret this result as normal/abnormal. ABSOLUTE LYMPHOCYTES (test code = 77354-5) 1.97 K/UL See_Comment [Automated messa ge] The system which generated this result transmitted reference range: 1.00-4.00 K/UL. The reference range was not used to interpret this result as normal/abnormal. ABSOLUTE MONOCYTES (test code = 72258-0) 0.73 K/UL See_Comment [Automated messa ge] The system which generated this result transmitted reference range: 0.20-1.00 K/UL. The reference range was not used to interpret this result as normal/abnormal. ABSOLUTE NEUTROPHILS (test code = 39683-6) 5.29 K/UL See_Comment [Automated messa ge] The system which generated this result transmitted reference range: 1.50-7.50 K/UL. The reference range was not used to interpret this result as normal/abnormal. BASOPHILS (test code = 21273-4) 0.5 % EOSINOPHILS (test code = 22396-2) 1.1 % HEMATOCRIT (test code = 32236-6) 41.6 % See_Comment [Automated messa ge] The system which generated this result transmitted reference range: 34.0-45.0 %. The reference range was not used to interpret this result as normal/abnormal. HEMOGLOBIN (test code = 718-7) 13.8 G/DL See_Comment [Automated messa ge] The system which generated this result transmitted reference range: 11.5-15.5 G/DL. The reference range was not used to interpret this result as normal/abnormal. LYMPHOCYTES (test code = 38751-2) 24.2 % MCH (test code = 36933-4) 30.7 PG See_Comment [Automated messa ge] The system which generated this result transmitted reference range: 25.0-33.0 PG. The reference range was not used to interpret this result as normal/abnormal. MCHC (test code = 97033-5) 33.2 G/DL See_Comment [Automated messa ge] The system which generated this result transmitted reference range: 31.0-36.0 G/DL. The reference range was not used to interpret this result as normal/abnormal. MCV (test code = 65263-9) 92.4 fL See_Comment [Automated messa ge] The system which generated this result transmitted reference range: 80.0-99.0 fL. The reference range was not used to interpret this result as normal/abnormal. MONOCYTES (test code = 76772-7) 9.0 % NEUTROPHILS (test code = 66866-2) 65.0 % PLATELET COUNT (test code = 78836-5) 228 K/UL See_Comment [Automated messa ge] The system which generated this result transmitted reference range: 130-400 K/UL. The reference range was not used to interpret this result as normal/abnormal. RBC (test code = 11837-4) 4.50 M/UL See_Comment [Automated messa ge] The system which generated this result transmitted reference range: 3.80-5.40 M/UL. The reference range was not used to interpret this result as normal/abnormal. RDW (test code = 27366-6) 11.9 % See_Comment [Automated messa ge] The system which generated this result transmitted reference range: 11.5-15.0 %. The reference range was not used to interpret this result as normal/abnormal. WBC (test code = 97472-4) 8.1 K/UL See_Comment [Automated [employer] ge] The system which generated this result transmitted reference range: 3.5-11.0 K/UL. The reference range was not used to interpret this result as normal/abnormal. HEMOGLOBIN [id number] 00:00:00* Test Item Value Reference Range Interpretation Comme [facility] HEMOGLOBIN A1c (test code = 4548-4) 7.1 % See_Comment H [Automated [employer] ge] The system which generated this result transmitted reference range: 4.2-5.6 %. The reference range was not used to interpret this result as normal/abnormal. TSH REFLEX TO FREE [id number] 00:00:00* Test Item Value Reference [facility]ation [facility] FREE T4 (test code = 16015-4) 2.680 UIU/ML See_Comment [Automated [employer]] The system which generated this result transmitted reference range: 0.400-4.100 UIU/ML. The reference range was not used to interpret this result as normal/abnormal. LIPID PANEL WITH REFLEX DIRECT [id number] 00:00:00* Test Item Value Reference Range [facility]ation [facility] CALC LDL CHOL (test code = 65870-4) 56 MG/DL See_Comment [Automated [employer] ge] The system which generated this result transmitted reference range: <100 MG/DL. The reference range was not used to interpret this result as normal/abnormal. CHOLESTEROL (test code = 2093-3) 150 MG/DL See_Comment [Automated [employer] ge] The system which generated this result transmitted reference range: <200 MG/DL. The reference range was not used to interpret this result as normal/abnormal. HDL CHOLESTEROL (test code = 2085-9) 77 MG/DL See_Comment [Automated [employer]] The system which generated this result transmitted reference range: >39 MG/DL. The reference range was not used to interpret this result as normal/abnormal. RISK RATIO LDL/HDL (test code = 50938-5) 0.73 RATIO See_Comment [Automated message] The system which generated this result transmitted reference range: <3.22 RATIO. The reference range was not used to interpret this result as normal/abnormal. TRIGLYCERIDES (test code = 2571-8) 83 MG/DL See_Comment [Automated messa ge] The system which generated this result transmitted reference range: <150 MG/DL. The reference range was not used to interpret this result as normal/abnormal. ALBUMIN/CREATININE RATIO, RANDOM [id number] 00:00:00* Test Item Value Reference Range Interpretation Comme nts ALBUMIN, URINE, RANDOM (test code = 37679-8) 0.6 MG/DL NOT ESTAB MG/DL CALC ALBUMIN/CREAT, RND (test code = 37435-1) 21 MG/G See_Comment [Automated messa ge] The system which generated this result transmitted reference range: <30 MG/G. The reference range was not used to interpret this result as normal/abnormal. CREATININE, URINE, CONC. (test code = 2161-8) 28.8 MG/DL NOT ESTAB MG/DL COMPREHENSIVE METABOLIC [id number] 00:00:00* Test Item Value Reference Range Interpretation Comme nts ALBUMIN (test code = 1751-7) 4.3 G/DL See_Comment [Automated messa ge] The system which generated this result transmitted reference range: 3.5-5.2 G/DL. The reference range was not used to interpret this result as normal/abnormal. ALKALINE PHOSPHATASE (test code = 6768-6) 77 U/L See_Comment [Automated message] The system which generated this result transmitted reference range: 40-142 U/L. The reference range was not used to interpret this result as normal/abnormal. BILIRUBIN, TOTAL (test code = 1975-2) <0.2 MG/DL See_Comment [Automated message] The system which generated this result transmitted reference range: <=1.2 MG/DL. The reference range was not used to interpret this result as normal/abnormal. BUN (test code = 3094-0) 25 MG/DL See_Comment H [Automated messa ge] The system which generated this result transmitted reference range: 8-23 MG/DL. The reference range was not used to interpret this result as normal/abnormal. CALCIUM (test code = 59852-4) 10.2 MG/DL See_Comment [Automated messa ge] The system which generated this result transmitted reference range: 8.5-10.5 MG/DL. The reference range was not used to interpret this result as normal/abnormal. CALC A/G RATIO (test code = 1759-0) 1.6 RATIO See_Comment [Automated messa ge] The system which generated this result transmitted reference range: 1.0-2.6 RATIO. The reference range was not used to interpret this result as normal/abnormal. CALC BUN/CREAT (test code = 3097-3) 31 RATIO See_Comment H [Automated messa ge] The system which generated this result transmitted reference range: 6-28 RATIO. The reference range was not used to interpret this result as normal/abnormal. CALC GLOBULIN (test code = 24411-6) 2.7 G/DL See_Comment [Automated messa ge] The system which generated this result transmitted reference range: 1.9-3.7 G/DL. The reference range was not used to interpret this result as normal/abnormal. CARBON DIOXIDE (test code = 1963-8) 31 MEQ/L See_Comment [Automated messa ge] The system which generated this result transmitted reference range: 19-31 MEQ/L. The reference range was not used to interpret this result as normal/abnormal. CHLORIDE (test code = 2075-0) 99 MEQ/L See_Comment [Automated messa ge] The system which generated this result transmitted reference range: 95-107 MEQ/L. The reference range was not used to interpret this result as normal/abnormal. CREATININE (test code = 2160-0) 0.81 MG/DL See_Comment [Automated messa ge] The system which generated this result transmitted reference range: 0.60-1.30 MG/DL. The reference range was not used to interpret this result as normal/abnormal. eGFR (2020 CKD-EPI) (test code = 85211-1) 75 ML/MIN/1.73 See_Comment [Automated messa ge] The system which generated this result transmitted reference range: >60 ML/MIN/1.73. The reference range was not used to interpret this result as normal/abnormal. GLUCOSE (test code = 1558-6) 138 MG/DL See_Comment H [Automated messa ge] The system which generated this result transmitted reference range: 70-99 MG/DL. The reference range was not used to interpret this result as normal/abnormal. POTASSIUM (test code = 2823-3) 4.6 MEQ/L See_Comment [Automated messa ge] The system which generated this result transmitted reference range: 3.5-5.4 MEQ/L. The reference range was not used to interpret this result as normal/abnormal. PROTEIN, TOTAL (test code = 2885-2) 7.0 G/DL See_Comment [Automated messa ge] The system which generated this result transmitted reference range: 6.1-8.3 G/DL. The reference range was not used to interpret this result as normal/abnormal. AST (test code = 1920-8) 25 U/L See_Comment [Automated messa ge] The system which generated this result transmitted reference range: 9-40 U/L. The reference range was not used to interpret this result as normal/abnormal. ALT (test code = 1742-6) 23 U/L See_Comment [Automated messa ge] The system which generated this result transmitted reference range: 5-40 U/L. The reference range was not used to interpret this result as normal/abnormal. SODIUM (test code = 2951-2) 139 MEQ/L See_Comment [Automated messa ge] The system which generated this result transmitted reference range: 133-146 MEQ/L. The reference range was not used to interpret this result as normal/abnormal.
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
[2023-10-24 17:10] VITALS: BP 154/62; TEMP 97.3; O2SAT 99
== END 2023-10-24 16:44 | disposition home or self-care (01) ==
LOC: ER 14:25
DX: S80.12XA Contusion of left lower leg, initial encounter (principal); M25.552 Pain in left hip; V49.49XA Driver injured in collision with other motor vehicles in traffic accident, initial encounter
CPT/HCPCS: 72170; 99283

== ENCOUNTER 2023-10-27 13:26 | Inpatient (IN) | payer OTHER ==
--- OUTSIDE RECORDS SUMMARY | 2023-10-27 13:31 | XMS REPORT | Continuity of Care Document ---
Author Name Unknown Address [address] [place] [address] [facility] Address [address] [place] [address] Care Team Providers Care [facility] Author Name Role Phone Fausto Costa Attending Clinician Unavailable Jesse -Shalonda Appiah Attending Clinician [email or web address]_Kadiyala_S Attending Clinician Unavaila ble BWilliams Attending Clinician Unavailable César Quiroz Attending Clinician José Antonio Leonard Attending Clinician OW_T Attending Clinician Unavailable GC_GCBZW_Kadiyala_S Admitting Clinician Unavaila daisy BWilliams Admitting Clinician Unavailable OWENS_T Admitting Clinician Unavailable Payers Payer Name Policy Type Policy Number Effective Date Expirati on Date Source [facility] (MEDICARE REPLACEMENT HMO) [id number] 00:00:00 Problems Condition Name Condition Details Condition Category Status Onset Date Resolution Date Last Treatment Date Treating Clinician Comments Source Solitary nodule of lung Nodule of left lung Problem [facility] [id number] Asymptomat ic hypertensi ve urgency Problem [facility] [id number] Essential hypertensi on Problem [facility] [id number] Type 2 diabetes mellitus with hyperglyce corey, without long-term current use of insulin Problem [facility] [id number] Acute stress disorder Problem [facility] [id number] Abnormal chest xray Problem [facility] [id number] Hypothyroi dism (acquired) Problem [facility] Decreased hearing Hearing decreased Problem [facility] [id number] Cataract, unspecifie d cataract type, unspecifie d laterality Problem [facility] [id number] Type 2 diabetes mellitus with other diabetic kidney complicati on Problem [facility] [id number] Mixed hyperlipid emia Problem [facility] [id number] Right upper lobe pulmonary nodule Problem [facility] [id number] EVANGELINA (generaliz ed anxiety disorder) Problem [facility] [id number] Panic attacks Problem [facility] [id number] Insomnia, unspecifie d type Problem [facility] [id number] Poor appetite Problem [facility] Allergic rhinitis Allergic rhinitis, unspecifie d seasonalit y, unspecifie d trigger Problem [facility] Social History Social Habit Start Date Stop Date Quantity Comments Source History of Tobacco Use [facility] Sex Assigned At [facility] Smoking Status Start Date Stop Date Source Never Smoker [facility] Medications Ordered Medication Name Filled Medication Name [...] HIGH DOSE OVER 65 2022-05-24 10:03:00 Completed [facility] FLUZONE HIGH DOSE OVER 65 FLUZONE HIGH DOSE OVER 65 2022-05-24 10:03:00 Completed [facility] FluAD FluAD 2021-04-10 13:55:00 Completed [facility] FluAD FluAD 2021-04-10 13:55:00 Completed [facility] FluAD FluAD 2021-04-10 13:55:00 Completed [facility] FluAD FluAD 2021-04-10 13:55:00 Completed [facility] Moderna COVID-19 Vaccine Moderna COVID-19 Vaccine 2020-09-22 11:35:00 Completed [facility] Moderna COVID-19 Vaccine Moderna COVID-19 Vaccine 2020-09-22 11:35:00 Completed [facility] Moderna COVID-19 Vaccine Moderna COVID-19 Vaccine 2020-09-22 11:35:00 Completed [facility] Moderna COVID-19 Vaccine Moderna COVID-19 Vaccine 2020-09-22 11:35:00 Completed [facility] Moderna COVID-19 Vaccine Moderna COVID-19 Vaccine 2020-08-22 11:35:00 Completed [facility] Moderna COVID-19 Vaccine Moderna COVID-19 Vaccine 2020-08-22 11:35:00 Completed [facility] Moderna COVID-19 Vaccine Moderna COVID-19 Vaccine 2020-08-22 11:35:00 Completed [facility] Moderna COVID-19 Vaccine Moderna COVID-19 Vaccine 2020-08-22 11:35:00 Completed [facility] Fluzone Fluzone 2019-07-25 11:34:00 Completed [facility] Fluzone Fluzone 2019-07-25 11:34:00 Completed [facility] Fluzone Fluzone 2019-07-25 11:34:00 Completed [facility] Fluzone Fluzone 2019-07-25 11:34:00 Completed [facility] Prevnar 13 (PCV13) Prevnar 13 (PCV13) 2018-06-23 11:29:00 Completed [facility] Prevnar 13 (PCV13) Prevnar 13 (PCV13) 2018-06-23 11:29:00 Completed [facility] Prevnar 13 (PCV13) Prevnar 13 (PCV13) 2018-06-23 11:29:00 Completed [facility] Prevnar 13 (PCV13) Prevnar 13 (PCV13) 2018-06-23 11:29:00 Completed [facility] Adacel (Tdap) Adacel (Tdap) 2016-02-23 11:33:00 Completed [facility] Adacel (Tdap) Adacel (Tdap) 2016-02-23 11:33:00 Completed [facility] Adacel (Tdap) Adacel (Tdap) 2016-02-23 11:33:00 Completed [facility] Adacel (Tdap) Adacel (Tdap) 2016-02-23 11:33:00 Completed [facility] Moderna COVID-19 Vaccine Moderna COVID-19 Vaccine Unknown Completed [facility] Moderna COVID-19 Vaccine Moderna COVID-19 Vaccine Unknown Completed [facility] FluAD FluAD Unknown Completed [facility] Fluzone Fluzone Unknown Completed [facility] FLUZONE HIGH DOSE OVER 65 FLUZONE HIGH DOSE OVER 65 Unknown Completed [facility] Adacel (Tdap) Adacel (Tdap) Unknown Completed [facility] Prevnar 13 (PCV13) Prevnar 13 (PCV13) Unknown Completed [facility] Moderna COVID-19 Vaccine Moderna COVID-19 Vaccine Unknown Completed [facility] Moderna COVID-19 Vaccine Moderna COVID-19 Vaccine Unknown Completed [facility] FluAD FluAD Unknown Completed [facility] Fluzone Fluzone Unknown Completed [facility] FLUZONE HIGH DOSE OVER 65 FLUZONE HIGH DOSE OVER 65 Unknown Completed [facility] Adacel (Tdap) Adacel (Tdap) Unknown Completed [facility] Prevnar 13 (PCV13) Prevnar 13 (PCV13) Unknown Completed [facility] Moderna COVID-19 Vaccine Moderna COVID-19 Vaccine Unknown Completed [facility] Moderna COVID-19 Vaccine Moderna COVID-19 Vaccine Unknown Completed [facility] FluAD FluAD Unknown Completed [facility] Fluzone Fluzone Unknown Completed [facility] FLUZONE HIGH DOSE OVER 65 FLUZONE HIGH DOSE OVER 65 Unknown Completed [facility] Adacel (Tdap) Adacel (Tdap) Unknown Completed [facility] Prevnar 13 (PCV13) Prevnar 13 (PCV13) Unknown Completed [facility] Moderna COVID-19 Vaccine Moderna COVID-19 Vaccine Unknown Completed [facility] Moderna COVID-19 Vaccine Moderna COVID-19 Vaccine Unknown Completed [facility] FluAD FluAD Unknown Completed [facility] Fluzone Fluzone Unknown Completed [facility] FLUZONE HIGH DOSE OVER 65 FLUZONE HIGH DOSE OVER 65 Unknown Completed [facility] Adacel (Tdap) Adacel (Tdap) Unknown Completed [facility] Prevnar 13 (PCV13) Prevnar 13 (PCV13) Unknown Completed [facility] Moderna COVID-19 Vaccine Moderna COVID-19 Vaccine Unknown Completed [facility] Moderna COVID-19 Vaccine Moderna COVID-19 Vaccine Unknown Completed [facility] FluAD FluAD Unknown Completed [facility] Fluzone Fluzone Unknown Completed [facility] FLUZONE HIGH DOSE OVER 65 FLUZONE HIGH DOSE OVER 65 Unknown Completed [facility] Adacel (Tdap) Adacel (Tdap) Unknown Completed [facility] Prevnar 13 (PCV13) Prevnar 13 (PCV13) Unknown Completed [facility] Moderna COVID-19 Vaccine Moderna COVID-19 Vaccine Unknown Completed [facility] Moderna COVID-19 Vaccine Moderna COVID-19 Vaccine Unknown Completed [facility] FluAD FluAD Unknown Completed [facility] Fluzone Fluzone Unknown Completed [facility] FLUZONE HIGH DOSE OVER 65 FLUZONE HIGH DOSE OVER 65 Unknown Completed [facility] Adacel (Tdap) Adacel (Tdap) Unknown Completed [facility] Prevnar 13 (PCV13) Prevnar 13 (PCV13) Unknown Completed [facility] Moderna COVID-19 Vaccine Moderna COVID-19 Vaccine Unknown Completed [facility] Moderna COVID-19 Vaccine Moderna COVID-19 Vaccine Unknown Completed [facility] FluAD FluAD Unknown Completed [facility] Fluzone Fluzone Unknown Completed [facility] FLUZONE HIGH DOSE OVER 65 FLUZONE HIGH DOSE OVER 65 Unknown Completed [facility] Adacel (Tdap) Adacel (Tdap) Unknown Completed [facility] Prevnar 13 (PCV13) Prevnar 13 (PCV13) Unknown Completed [facility] Moderna COVID-19 Vaccine Moderna COVID-19 Vaccine Unknown Completed [facility] Moderna COVID-19 Vaccine Moderna COVID-19 Vaccine Unknown Completed [facility] FluAD FluAD Unknown Completed [facility] Fluzone Fluzone Unknown Completed [facility] FLUZONE HIGH DOSE OVER 65 FLUZONE HIGH DOSE OVER 65 Unknown Completed [facility] Adacel (Tdap) Adacel (Tdap) Unknown Completed [facility] Prevnar 13 (PCV13) Prevnar 13 (PCV13) Unknown Completed [facility] Moderna COVID-19 Vaccine Moderna COVID-19 Vaccine Unknown Completed [facility] Moderna COVID-19 Vaccine Moderna COVID-19 Vaccine Unknown Completed [facility] FluAD FluAD Unknown Completed [facility] Fluzone Fluzone Unknown Completed [facility] FLUZONE HIGH DOSE OVER 65 FLUZONE HIGH DOSE OVER 65 Unknown Completed [facility] Adacel (Tdap) Adacel (Tdap) Unknown Completed [facility] Prevnar 13 (PCV13) Prevnar 13 (PCV13) Unknown Completed [facility] Moderna COVID-19 Vaccine Moderna COVID-19 Vaccine Unknown Completed [facility] Moderna COVID-19 Vaccine Moderna COVID-19 Vaccine Unknown Completed [facility] FluAD FluAD Unknown Completed [facility] Fluzone Fluzone Unknown Completed [facility] FLUZONE HIGH DOSE OVER 65 FLUZONE HIGH DOSE OVER 65 Unknown Completed [facility] Adacel (Tdap) Adacel (Tdap) Unknown Completed [facility] Prevnar 13 (PCV13) Prevnar 13 (PCV13) Unknown Completed [facility] Moderna COVID-19 Vaccine Moderna COVID-19 Vaccine Unknown Completed [facility] Moderna COVID-19 Vaccine Moderna COVID-19 Vaccine Unknown Completed [facility] FluAD FluAD Unknown Completed [facility] Fluzone Fluzone Unknown Completed [facility] FLUZONE HIGH DOSE OVER 65 FLUZONE HIGH DOSE OVER 65 Unknown Completed [facility] Adacel (Tdap) Adacel (Tdap) Unknown Completed [facility] Prevnar 13 (PCV13) Prevnar 13 (PCV13) Unknown Completed [facility] Moderna COVID-19 Vaccine Moderna COVID-19 Vaccine Unknown Completed [facility] Moderna COVID-19 Vaccine Moderna COVID-19 Vaccine Unknown Completed [facility] FluAD FluAD Unknown Completed [facility] Fluzone Fluzone Unknown Completed [facility] FLUZONE HIGH DOSE OVER 65 FLUZONE HIGH DOSE OVER 65 Unknown Completed [facility] Adacel (Tdap) Adacel (Tdap) Unknown Completed [facility] Prevnar 13 (PCV13) Prevnar 13 (PCV13) Unknown Completed [facility] Moderna COVID-19 Vaccine Moderna COVID-19 Vaccine Unknown Completed [facility] Moderna COVID-19 Vaccine Moderna COVID-19 Vaccine Unknown Completed [facility] FluAD FluAD Unknown Completed [facility] Fluzone Fluzone Unknown Completed [facility] FLUZONE HIGH DOSE OVER 65 FLUZONE HIGH DOSE OVER 65 Unknown Completed [facility] Adacel (Tdap) Adacel (Tdap) Unknown Completed [facility] Prevnar 13 (PCV13) Prevnar 13 (PCV13) Unknown Completed [facility] Moderna COVID-19 Vaccine Moderna COVID-19 Vaccine Unknown Completed [facility] Moderna COVID-19 Vaccine Moderna COVID-19 Vaccine Unknown Completed [facility] FluAD FluAD Unknown Completed [facility] Fluzone Fluzone Unknown Completed [facility] FLUZONE HIGH DOSE OVER 65 FLUZONE HIGH DOSE OVER 65 Unknown Completed [facility] Adacel (Tdap) Adacel (Tdap) Unknown Completed [facility] Prevnar 13 (PCV13) Prevnar 13 (PCV13) Unknown Completed [facility] Moderna COVID-19 Vaccine Moderna COVID-19 Vaccine Unknown Completed [facility] Moderna COVID-19 Vaccine Moderna COVID-19 Vaccine Unknown Completed [facility] FluAD FluAD Unknown Completed [facility] Fluzone Fluzone Unknown Completed [facility] FLUZONE HIGH DOSE OVER 65 FLUZONE HIGH DOSE OVER 65 Unknown Completed [facility] Adacel (Tdap) Adacel (Tdap) Unknown Completed [facility] Prevnar 13 (PCV13) Prevnar 13 (PCV13) Unknown Completed [facility] Moderna COVID-19 Vaccine Moderna COVID-19 Vaccine Unknown Completed [facility] Moderna COVID-19 Vaccine Moderna COVID-19 Vaccine Unknown Completed [facility] FluAD FluAD Unknown Completed [facility] Fluzone Fluzone Unknown Completed [facility] FLUZONE HIGH DOSE OVER 65 FLUZONE HIGH DOSE OVER 65 Unknown Completed [facility] Adacel (Tdap) Adacel (Tdap) Unknown Completed [facility] Prevnar 13 (PCV13) Prevnar 13 (PCV13) Unknown Completed [facility] Moderna COVID-19 Vaccine Moderna COVID-19 Vaccine Unknown Completed [facility] Moderna COVID-19 Vaccine Moderna COVID-19 Vaccine Unknown Completed [facility] FluAD FluAD Unknown Completed [facility] Fluzone Fluzone Unknown Completed [facility] FLUZONE HIGH DOSE OVER 65 FLUZONE HIGH DOSE OVER 65 Unknown Completed [facility] Adacel (Tdap) Adacel (Tdap) Unknown Completed [facility] Prevnar 13 (PCV13) Prevnar 13 (PCV13) Unknown Completed [facility] Moderna COVID-19 Vaccine Moderna COVID-19 Vaccine Unknown Completed [facility] Moderna COVID-19 Vaccine Moderna COVID-19 Vaccine Unknown Completed [facility] FluAD FluAD Unknown Completed [facility] Fluzone Fluzone Unknown Completed [facility] FLUZONE HIGH DOSE OVER 65 FLUZONE HIGH DOSE OVER 65 Unknown Completed [facility] Adacel (Tdap) Adacel (Tdap) Unknown Completed [facility] Prevnar 13 (PCV13) Prevnar 13 (PCV13) Unknown Completed [facility] Moderna COVID-19 Vaccine Moderna COVID-19 Vaccine Unknown Completed [facility] Moderna COVID-19 Vaccine Moderna COVID-19 Vaccine Unknown Completed [facility] FluAD FluAD Unknown Completed [facility] Fluzone Fluzone Unknown Completed [facility] FLUZONE HIGH DOSE OVER 65 FLUZONE HIGH DOSE OVER 65 Unknown Completed [facility] Adacel (Tdap) Adacel (Tdap) Unknown Completed [facility] Prevnar 13 (PCV13) Prevnar 13 (PCV13) Unknown Completed [facility] Moderna COVID-19 Vaccine Moderna COVID-19 Vaccine Unknown Completed [facility] Moderna COVID-19 Vaccine Moderna COVID-19 Vaccine Unknown Completed [facility] FluAD FluAD Unknown Completed [facility] Fluzone Fluzone Unknown Completed [facility] FLUZONE HIGH DOSE OVER 65 FLUZONE HIGH DOSE OVER 65 Unknown Completed [facility] Adacel (Tdap) Adacel (Tdap) Unknown Completed [facility] Prevnar 13 (PCV13) Prevnar 13 (PCV13) Unknown Completed [facility] Moderna COVID-19 Vaccine Moderna COVID-19 Vaccine Unknown Completed [facility] Moderna COVID-19 Vaccine Moderna COVID-19 Vaccine Unknown Completed [facility] FluAD FluAD Unknown Completed [facility] Fluzone Fluzone Unknown Completed [facility] FLUZONE HIGH DOSE OVER 65 FLUZONE HIGH DOSE OVER 65 Unknown Completed [facility] Adacel (Tdap) Adacel (Tdap) Unknown Completed [facility] Prevnar 13 (PCV13) Prevnar 13 (PCV13) Unknown Completed [facility] Moderna COVID-19 Vaccine Moderna COVID-19 Vaccine Unknown Completed [facility] Moderna COVID-19 Vaccine Moderna COVID-19 Vaccine Unknown Completed [facility] FluAD FluAD Unknown Completed [facility] Fluzone Fluzone Unknown Completed [facility] FLUZONE HIGH DOSE OVER 65 FLUZONE HIGH DOSE OVER 65 Unknown Completed [facility] Adacel (Tdap) Adacel (Tdap) Unknown Completed [facility] Prevnar 13 (PCV13) Prevnar 13 (PCV13) Unknown Completed [facility] Moderna COVID-19 Vaccine Moderna COVID-19 Vaccine Unknown Completed [facility] Moderna COVID-19 Vaccine Moderna COVID-19 Vaccine Unknown Completed [facility] FluAD FluAD Unknown Completed [facility] Fluzone Fluzone Unknown Completed [facility] FLUZONE HIGH DOSE OVER 65 FLUZONE HIGH DOSE OVER 65 Unknown Completed [facility] Adacel (Tdap) Adacel (Tdap) Unknown Completed Co [facility] Prevnar 13 (PCV13) Prevnar 13 (PCV13) Unknown Completed Common [facility] Vital Signs Vital Name Observation Time Observation Value Comments Jose greenberg height 2023-09-20 10:20:00 65.5 [in_i] Comm on [facility] weight 2023-09-20 10:20:00 110.8 [lb_av] Co on [facility] temperature 2023-09-20 10:20:00 97.4 [degF] Com [facility] bmi 2023-09-20 10:20:00 18.16 kg/m2 Comm on [facility] oximetry 2023-09-20 10:20:00 98 % Commo n [facility] blood pressure systolic 2023-09-20 10:20:00 122 mm[Hg] [facility] blood pressure diastolic 2023-09-20 10:20:00 72 mm[Hg] [facility] height 2023-06-21 09:50:00 65.5 [in_i] Comm on [facility] weight 2023-06-21 09:50:00 114.8 [lb_av] Co [facility] temperature 2023-06-21 09:50:00 97.5 [degF] Com [facility] bmi 2023-06-21 09:50:00 18.81 kg/m2 Comm on [facility] oximetry 2023-06-21 09:50:00 96 % Commo n [facility] blood pressure systolic 2023-06-21 09:50:00 138 mm[Hg] [facility] blood [facility] diastolic 2023-06-21 09:50:00 82 mm[Hg] [facility] height 2023-04-17 09:40:00 65.5 [in_i] Comm on [facility] weight 2023-04-17 09:40:00 115.4 [lb_av] Co mmon [facility] temperature 2023-04-17 09:40:00 97.9 [degF] Com [facility] bmi 2023-04-17 09:40:00 18.91 kg/m2 Comm on [facility] oximetry 2023-04-17 09:40:00 96 % Commo n [facility] respiratory rate 2023-04-17 09:40:00 16 /min Common [facility] blood pressure systolic 2023-04-17 09:40:00 139 mm[Hg] [facility] blood pressure diastolic 2023-04-17 09:40:00 75 mm[Hg] [facility] height 2023-03-14 09:30:00 65.5 [in_i] Comm on [facility] weight 2023-03-14 09:30:00 117.6 [lb_av] Co on [facility] temperature 2023-03-14 09:30:00 98.0 [degF] Com [facility] bmi 2023-03-14 09:30:00 19.27 kg/m2 Comm on [facility] oximetry 2023-03-14 09:30:00 97 % Commo n [facility] respiratory rate 2023-03-14 09:30:00 17 /min [facility] blood pressure systolic 2023-03-14 09:30:00 126 mm[Hg] [facility] blood pressure diastolic 2023-03-14 09:30:00 73 mm[Hg] [facility] height 2023-03-14 09:30:00 65.5 [in_i] Comm on [facility] weight 2023-03-14 09:30:00 117.6 [lb_av[facility]-14 09:30:00 98.0 [degF] Com [facility] bmi 2023-03-14 09:30:00 19.27 kg/m2 Comm on [facility] oximetry 2023-03-14 09:30:00 97 % Commo n [facility] respiratory rate 2023-03-14 09:30:00 17 /min [facility] blood pressure systolic 2023-03-14 09:30:00 126 mm[Hg] Common [facility] blood pressure diastolic 2023-03-14 09:30:00 73 mm[Hg] [facility] height 2023-01-28 10:40:00 65.5 [in_i] Comm on [facility] weight 2023-01-28 10:40:00 117 [lb_av] Comm on [facility] temperature 2023-01-28 10:40:00 97.2 [degF] Com [facility] bmi 2023-01-28 10:40:00 19.17 kg/m2 Comm on [facility] oximetry 2023-01-28 10:40:00 96 % Commo n [facility] respiratory rate 2023-01-28 10:40:00 17 /min [facility] blood pressure systolic 2023-01-28 10:40:00 139 mm[Hg] [facility] blood pressure diastolic 2023-01-28 10:40:00 74 mm[Hg] [facility] height 2023-01-09 08:40:00 65.5 [in_i] Comm on [facility] weight 2023-01-09 08:40:00 116.0 [lb_av] Co mmon [facility] temperature 2023-01-09 08:40:00 97.2 [degF] Com [facility] bmi 2023-01-09 08:40:00 19.01 kg/m2 Comm on [facility] oximetry 2023-01-09 08:40:00 97 % Commo n [facility] respiratory rate 2023-01-09 08:40:00 17 /min [facility] blood pressure systolic 2023-01-09 08:40:00 138 mm[Hg] [facility] blood pressure diastolic 2023-01-09 08:40:00 82 mm[Hg] [facility] height 2022-12-04 09:20:00 65.5 [in_i] Comm on [facility] weight 2022-12-04 09:20:00 121.0 [lb_av] Co mmon [facility] temperature 2022-12-04 09:20:00 97.3 [degF] Com [facility] bmi 2022-12-04 09:20:00 19.83 kg/m2 Comm on [facility] oximetry 2022-12-04 09:20:00 97 % Commo n [facility] respiratory rate 2022-12-04 09:20:00 16 /min [facility] blood pressure systolic 2022-12-04 09:20:00 139 mm[Hg] [facility] blood pressure diastolic 2022-12-04 09:20:00 88 mm[Hg] [facility] height 2022-08-22 10:20:00 65.5 [in_i] Comm on [facility] weight 2022-08-22 10:20:00 117.9 [lb_av] Co [facility] temperature 2022-08-22 10:20:00 97.1 [degF] Com mon [facility] bmi 2022-08-22 10:20:00 19.32 kg/m2 Comm on [facility] oximetry 2022-08-22 10:20:00 96 % Commo n [facility] respiratory rate 2022-08-22 10:20:00 18 /min Common [facility] blood pressure systolic 2022-08-22 10:20:00 121 mm[Hg] Common [facility] blood pressure diastolic 2022-08-22 10:20:00 63 mm[Hg] [facility] height 2022-05-24 09:40:00 65.5 [in_i] Comm on [facility] weight 2022-05-24 09:40:00 117.7 [lb_av] Co mmon [facility] temperature 2022-05-24 09:40:00 97.2 [degF] Com mon [facility] bmi 2022-05-24 09:40:00 19.29 kg/m2 Comm on [facility] oximetry 2022-05-24 09:40:00 91 % Commo n [facility] respiratory rate 2022-05-24 09:40:00 16 /min [facility] blood pressure systolic 2022-05-24 09:40:00 120 mm[Hg] Common [facility] blood pressure diastolic 2022-05-24 09:40:00 67 mm[Hg] Common [facility] height 2022-02-21 14:00:00 65.5 [in_i] Comm on [facility] weight 2022-02-21 14:00:00 117 [lb_av] Comm on [facility] temperature 2022-02-21 14:00:00 97.6 [degF] Com mon [facility] bmi 2022-02-21 14:00:00 19.17 kg/m2 Comm on [facility] oximetry 2022-02-21 14:00:00 94 % Commo n [facility] respiratory rate 2022-02-21 14:00:00 17 /min [facility] blood pressure systolic 2022-02-21 14:00:00 132 mm[Hg] Common [facility] blood pressure diastolic 2022-02-21 14:00:00 62 mm[Hg] [facility] height 2022-02-21 14:40:00 65.5 [in_i] Comm on [facility] weight 2022-02-21 14:40:00 117 [lb_av] Comm on [facility] temperature 2022-02-21 14:40:00 97.6 [degF] Com mon [facility] bmi 2022-02-21 14:40:00 19.17 kg/m2 Comm on [facility] oximetry 2022-02-21 14:40:00 94 % Commo n [facility] respiratory rate 2022-02-21 14:40:00 17 /min [facility] blood pressure systolic 2022-02-21 14:40:00 132 mm[Hg] [facility] blood pressure diastolic 2022-02-21 14:40:00 62 mm[Hg] [facility] Encounters Start Date/Time End Date/Time Encounter Type Admission Type Attending [facility] Care Facility Care Department Encounter ID Source 2023-05-10 15:36:00 Outpatient [facility] [id number] [facility] 2023-04-16 10:57:00 Outpatient [facility] [id number] [facility] 2023-03-12 09:35:00 Outpatient Costa, Fausto [facility] [id number] [facility] 2022-11-30 09:26:01 Outpatient Costa, Fausto [facility] [id number] [facility] 2022-08-22 08:20:01 Outpatient Costa, Fausto [facility] [id number] [facility] 2022-05-24 09:28:01 Outpatient Costa, Fausto [facility] [id number] [facility] 2022-05-23 08:22:01 Outpatient Costa, Fausto [facility] [id number] [facility] 2022-02-21 13:33:01 Outpatient Fausto Costa [facility] [id number] [facility] 2023-09-20 00:00:00 2023-09-20 00:00:00 OFFICE VISIT ESTAB PT LEVEL 4 [facility] [id number] [facility] 2023-09-13 00:00:00 2023-09-13 00:00:00 (TEL) [facility] [id number] [facility] 2023-08-14 16:30:00 2023-08-14 17:30:00 Initial D2Me Shalonda Molina 2.16.840. [id number]. [id number] 2.16.840.1. [id number] [facility] 2023-06-21 00:00:00 2023-06-21 00:00:00 OFFICE VISIT ESTAB PT LEVEL 4 [facility] [id number] [facility] 2023-06-06 00:00:00 2023-06-06 00:00:00 Outpatient GC_GCBZW_Ka diyala_S PRIV PRIV [id number] [facility] 2023-05-30 00:00:00 2023-05-30 00:00:00 (TEL) [facility] ST[facility] [id number] [facility] 2023-05-20 00:00:00 2023-05-20 00:00:00 (TEL) [facility] [id number] [facility] 2023-05-17 00:00:00 2023-05-17 00:00:00 Outpatient BWilliams DMG DMG [id number] [facility] 2023-04-22 00:00:00 2023-04-22 00:00:00 Outpatient GC_GCBZW_Ka diyala_S PRIV PRIV [id number] [facility] 2023-04-22 00:00:00 2023-04-22 00:00:00 Outpatient GC_GCBZW_Ka diyala_S PRIV PRIV [id number] [facility] 2023-04-22 00:00:00 2023-04-22 00:00:00 Outpatient GC_GCBZW_Ka diyala_S PRIV PRIV [id number] [facility] 2023-04-17 00:00:00 2023-04-17 00:00:00 OFFICE VISIT ESTAB PT LEVEL 4 STL[facility]C STLMLC [id number] [facility] 2023-04-13 00:00:00 2023-04-13 00:00:00 Outpatient GC_GCBZW_Ka diyala_S PRIV PRIV [id number] [facility] 2023-04-12 00:00:00 2023-04-12 00:00:00 (TEL) STLMLC STLMLC [id number] [facility] 2023-04-09 00:00:00 2023-04-09 00:00:00 (TEL) STLMLC STLMLC [id number] [facility] 2023-04-04 00:00:00 2023-04-04 00:00:00 (TEL) STLMLC STLMLC [id number] [facility] 2023-03-25 00:00:00 2023-03-25 00:00:00 (TEL) STLMLC STLMLC [id number] [facility] 2023-03-15 00:00:00 2023-03-15 00:00:00 Outpatient GC_GCBZW_Ka diyala_S PRIV PRIV [id number] [facility] 2023-03-14 00:00:00 2023-03-14 00:00:00 OFFICE VISIT ESTAB PT LEVEL 4 STLMLC STLMLC [id number] [facility] 2023-03-14 00:00:00 2023-03-14 00:00:00 SUB ANNUAL [facility] VIS[facility] ST[facility] STLC [id number] [facility] 2023-03-14 00:00:00 2023-03-14 00:00:00 (TEL) STLC STLC [id number] [facility] 2023-03-13 00:00:00 2023-03-13 00:00:00 Outpatient GC_GCBZW_Ka diyala_S PRIV PRIV [id number] [facility] 2023-01-30 00:00:00 2023-01-30 00:00:00 Outpatient GC_GCBZW_Ka diyala_S PRIV PRIV [id number] [facility] 2023-01-30 00:00:00 2023-01-30 00:00:00 Outpatient GC_GCBZW_Ka diyala_S PRIV PRIV [id number] [facility] 2023-01-28 00:00:00 2023-01-28 00:00:00 OFFICE VISIT ESTAB PT LEVEL 3 STLC STLC [id number] [facility] 2023-01-28 00:00:00 2023-01-28 00:00:00 (TEL) STLC STLC [id number] [facility] 2023-01-18 00:00:00 2023-01-18 00:00:00 (TEL) STLC STLC [id number] [facility] 2023-01-11 14:30:00 2023-01-11 15:30:00 KAL Quiroz 2.16.840. [id number] 2.16.840.1. [id number] [facility] 2023-01-11 00:00:00 2023-01-11 00:00:00 (TEL) STLC STLC [id number] [facility] 2023-01-09 00:00:00 2023-01-09 00:00:00 OFFICE VISIT ESTAB PT LEVEL 4 STLMLC STLMLC [id number] [facility] 2023-01-08 00:00:00 2023-01-08 00:00:00 (TEL) STLMLC STLMLC [id number] [facility] 2022-12-04 00:00:00 2022-12-04 00:00:00 OFFICE VISIT ESTAB PT LEVEL 4 STLMLC STLMLC [id number] [facility] 2022-11-12 00:00:00 2022-11-12 00:00:00 (TEL) STLMLC STLMLC [id number] [facility] 2022-09-12 00:00:00 2022-09-12 00:00:00 (TEL) STLMLC STLMLC [id number] [facility] 2022-08-22 00:00:00 2022-08-22 00:00:00 OFFICE VISIT ESTAB PT LEVEL 4 STLMLC STLMLC [id number] [facility] 2022-07-03 00:00:00 2022-07-03 00:00:00 (TEL) STLMLC STLMLC [id number] [facility] 2022-05-24 00:00:00 2022-05-24 00:00:00 OFFICE VISIT ESTAB PT LEVEL 4 STLMLC STLMLC [id number] [facility] 2022-03-13 14:30:00 2022-03-13 15:30:00 KAL Leonard 2.16.840. [id number]. [id number] 2.16.840.1. [id number] [facility] 2022-03-13 00:00:00 2022-03-13 00:00:[address] [facility] [id number] [facility] 2022-03-13 00:00:00 2022-03-13 00:00:[facility] [id number] 2022-02-21 00:00:00 2022-02-21 00:00:00 [facility] [id number] 2022-02-21 00:00:00 2022-02-21 00:00:00 SUB ANNUAL [facility] VISIT [facility] [id number] [facility] 2022-01-05 03:28:00 2022-01-05 03:28:00 Outpatient OW[facility]T [facility]G [facility] [id number] [facility] 2021-04-07 18:00:00 2021-04-07 19:00:00 CAV Tommadelyn Quiroz 2.16.840. [id number]. [id number] 2.16.840.1. [id number] JCS [facility] 2021-03-28 06:42:00 2021-03-28 06:42:00 Outpatient [facility] [id number] [facility] 2020-10-24 06:01:00 2020-10-24 06:01:[facility] [id number] 2020-10-17 08:00:00 2020-10-17 08:00:[facility] [id number] [facility] Results Test Description Test Time Test Comments Results Result Co mments Source HEMOGLOBIN [id number] 00:00:00* Test Item Value Reference Range Interpretation Comme nts HEMOGLOBIN A1c (test code = 4548-4) 7.1 % See_Comment H [Automated [employer]Systems] The system which generated this result transmitted reference range: 4.2-5.6 %. The reference range was not used to interpret this result as normal/abnormal. TSH REFLEX TO FREE [id number] 00:00:00* Test Item Value Reference Range Interpretation Comme nts TSH REFLEX TO FREE T4 (test code = 28143-5) 1.380 UIU/ML See_Comment [Automated [employer]] The system which generated this result transmitted reference range: 0.400-4.100 UIU/ML. The reference range was not used to interpret this result as normal/abnormal. LIPID PANEL WITH REFLEX DIRECT [id number] 00:00:00* Test Item Value Reference Range Interpretation Comme nts CALC LDL CHOL (test code = 56452-6) 51 MG/DL See_Comment [Automated messa ge] The [...] normal/abnormal. RISK RATIO LDL/HDL (test code = 29172-2) 0.59 RATIO See_Comment [Automated message] The system [...] this result as normal/abnormal. ALBUMIN/CREATININE RATIO, RANDOM [id number] 00:00:00* Test Item Value Reference Range Interpretation Comme nts ALBUMIN, URINE, RANDOM (test code = 28821-7) 2.3 MG/DL NOT ESTAB MG/DL CALC ALBUMIN/CREAT, RND (test code = 81382-0) 11 MG/G See_Comment [Automated messa ge] The system which generated this result transmitted reference range: <30 MG/G. The reference range was not used to interpret this result as normal/abnormal. CREATININE, URINE, CONC. (test code = 2161-8) 212.3 MG/DL NOT ESTAB MG/DL COMPREHENSIVE METABOLIC [id number] 00:00:00* Test Item Value Reference Range Interpretation [...] result as normal/abnormal. CALCIUM (test code = 36179-7) 10.1 MG/DL See_Comment [Automated messa ge] The [...] as normal/abnormal. CALC GLOBULIN (test code = 32280-9) 2.5 G/DL See_Comment [Automated messa ge] The [...] normal/abnormal. eGFR (2020 CKD-EPI) (test code = 48310-9) 81 ML/MIN/1.73 See_Comment [Automated messa ge] The [...] interpret this result as normal/abnormal. CBC W/AUTO [id number] 00:00:00* Test Item Value Reference Range Interpretation Comme nts NUCLEATED RBCS (test code = 57849-0) 0.0 /100 WBC'S See_Comment [Automated messa ge] The system which generated this result transmitted reference range: 0.0 /100 WBC'S. The reference range was not used to interpret this result as normal/abnormal. ABSOLUTE EOSINOPHILS (test code = 30776-4) 0.09 K/UL See_Comment [Automated messa ge] The system which generated this result transmitted reference range: 0.00-0.50 K/UL. The reference range was not used to interpret this result as normal/abnormal. ABSOLUTE LYMPHOCYTES (test code = 64328-7) 1.50 K/UL See_Comment [Automated messa ge] The system which generated this result transmitted reference range: 1.00-4.00 K/UL. The reference range was not used to interpret this result as normal/abnormal. ABSOLUTE MONOCYTES (test code = 95385-5) 0.65 K/UL See_Comment [Automated messa ge] The system which generated this result transmitted reference range: 0.20-1.00 K/UL. The reference range was not used to interpret this result as normal/abnormal. ABSOLUTE NEUTROPHILS (test code = 48275-3) 6.11 K/UL See_Comment [Automated messa ge] The system which generated this result transmitted reference range: 1.50-7.50 K/UL. The reference range was not used to interpret this result as normal/abnormal. BASOPHILS (test code = 37994-1) 0.7 % EOSINOPHILS (test code = 56347-3) 1.1 % HEMATOCRIT (test code = 74124-3) 43.6 % See_Comment [Automated messa ge] The [...] result as normal/abnormal. LYMPHOCYTES (test code = 01456-0) 17.8 % MCH (test code = 45511-0) 30.6 PG See_Comment [Automated messa ge] The system which generated this result transmitted reference range: 25.0-33.0 PG. The reference range was not used to interpret this result as normal/abnormal. MCHC (test code = 96962-9) 32.8 G/DL See_Comment [Automated messa ge] The system which generated this result transmitted reference range: 31.0-36.0 G/DL. The reference range was not used to interpret this result as normal/abnormal. MCV (test code = 68915-2) 93.4 fL See_Comment [Automated messa ge] The system which generated this result transmitted reference range: 80.0-99.0 fL. The reference range was not used to interpret this result as normal/abnormal. MONOCYTES (test code = 46652-6) 7.7 % NEUTROPHILS (test code = 42589-9) 72.5 % PLATELET COUNT (test code = 27264-5) 234 K/UL See_Comment [Automated messa ge] The system which generated this result transmitted reference range: 130-400 K/UL. The reference range was not used to interpret this result as normal/abnormal. RBC (test code = 60154-3) 4.67 M/UL See_Comment [Automated messa ge] The system which generated this result transmitted reference range: 3.80-5.40 M/UL. The reference range was not used to interpret this result as normal/abnormal. RDW (test code = 06314-6) 11.8 % See_Comment [Automated messa ge] The system which generated this result transmitted reference range: 11.5-15.0 %. The reference range was not used to interpret this result as normal/abnormal. WBC (test code = 63302-8) 8.4 K/UL See_Comment [Automated messa ge] The system which generated this result transmitted reference range: 3.5-11.0 K/UL. The reference range was not used to interpret this result as normal/abnormal. HEMOGLOBIN [id number] 00:00:00* Test Item Value Reference Range Interpretation Comme nts HEMOGLOBIN A1c (test code = 4548-4) 7.6 % See_Comment H [Automated Blog[employer] ge] The system which generated this result transmitted reference range: 4.2-5.6 %. The reference range was not used to interpret this result as normal/abnormal. TSH REFLEX TO FREE [id number] 00:00:00* Test Item Value Reference Range Interpretation Comme nts TSH REFLEX TO FREE T4 (test code = 89588-0) 1.600 UIU/ML See_Comment [Automated [employer] ge] The system which generated this result transmitted reference range: 0.400-4.100 UIU/ML. The reference range was not used to interpret this result as normal/abnormal. LIPID PANEL WITH REFLEX DIRECT [id number] 00:00:00* Test Item Value Reference Range Interpretation Comme nts CALC LDL CHOL (test code = 65756-3) 56 MG/DL See_Comment [Automated [employer] ge] The system which generated this result transmitted reference range: <100 MG/DL. The reference range was not used to interpret this result as normal/abnormal. CHOLESTEROL (test code = 2093-3) 157 MG/DL See_Comment [Automated [employer] ge] The system which generated this result transmitted reference range: <200 MG/DL. The reference range was not used to interpret this result as normal/abnormal. HDL CHOLESTEROL (test code = 2085-9) 84 MG/DL See_Comment [Automated [employer] ge] The system which generated this result transmitted reference range: >39 MG/DL. The reference range was not used to interpret this result as normal/abnormal. RISK RATIO LDL/HDL (test code = 32946-7) 0.67 RATIO See_Comment [Automated message] The system which generated this result transmitted reference range: <3.22 RATIO. The reference range was not used to interpret this result as normal/abnormal. TRIGLYCERIDES (test code = 2571-8) 87 MG/DL See_Comment [Automated Blog[employer]era ge] The system which generated this result transmitted reference range: <150 MG/DL. The reference range was not used to interpret this result as normal/abnormal. ALBUMIN/CREATININE RATIO, RANDOM [id number] 00:00:00* Test Item Value Reference Range Interpretation Comme nts ALBUMIN, URINE, RANDOM (test code = 34142-1) 0.7 MG/DL NOT ESTAB MG/DL CALC ALBUMIN/CREAT, RND (test code = 29032-4) 9 MG/G See_Comment [Automated messa ge] The system which generated this result transmitted reference range: <30 MG/G. The reference range was not used to interpret this result as normal/abnormal. CREATININE, URINE, CONC. (test code = 2161-8) 79.1 MG/DL NOT ESTAB MG/DL COMPREHENSIVE METABOLIC [id number] 00:00:00* Test Item Value Reference Range Interpretation [...] result as normal/abnormal. CALCIUM (test code = 93863-9) 9.7 MG/DL See_Comment [Automated messa ge] The [...] as normal/abnormal. CALC GLOBULIN (test code = 20690-7) 2.4 G/DL See_Comment [Automated messa ge] The [...] normal/abnormal. eGFR (2020 CKD-EPI) (test code = 92107-4) 62 ML/MIN/1.73 See_Comment [Automated messa ge] The [...] interpret this result as normal/abnormal. CBC W/AUTO [id number] 00:00:00* Test Item Value Reference Range Interpretation Comme nts NUCLEATED RBCS (test code = 24190-1) 0.0 /100 WBC'S See_Comment [Automated messa ge] The system which generated this result transmitted reference range: 0.0 /100 WBC'S. The reference range was not used to interpret this result as normal/abnormal. ABSOLUTE EOSINOPHILS (test code = 42364-0) 0.09 K/UL See_Comment [Automated messa ge] The system which generated this result transmitted reference range: 0.00-0.50 K/UL. The reference range was not used to interpret this result as normal/abnormal. ABSOLUTE LYMPHOCYTES (test code = 17122-8) 1.97 K/UL See_Comment [Automated messa ge] The system which generated this result transmitted reference range: 1.00-4.00 K/UL. The reference range was not used to interpret this result as normal/abnormal. ABSOLUTE MONOCYTES (test code = 71620-5) 0.73 K/UL See_Comment [Automated messa ge] The system which generated this result transmitted reference range: 0.20-1.00 K/UL. The reference range was not used to interpret this result as normal/abnormal. ABSOLUTE NEUTROPHILS (test code = 09480-7) 5.29 K/UL See_Comment [Automated messa ge] The system which generated this result transmitted reference range: 1.50-7.50 K/UL. The reference range was not used to interpret this result as normal/abnormal. BASOPHILS (test code = 22976-6) 0.5 % EOSINOPHILS (test code = 44003-9) 1.1 % HEMATOCRIT (test code = 34378-8) 41.6 % See_Comment [Automated messa ge] The [...] result as normal/abnormal. LYMPHOCYTES (test code = 39940-9) 24.2 % MCH (test code = 05204-2) 30.7 PG See_Comment [Automated messa ge] The system which generated this result transmitted reference range: 25.0-33.0 PG. The reference range was not used to interpret this result as normal/abnormal. MCHC (test code = 49598-2) 33.2 G/DL See_Comment [Automated messa ge] The system which generated this result transmitted reference range: 31.0-36.0 G/DL. The reference range was not used to interpret this result as normal/abnormal. MCV (test code = 99921-5) 92.4 fL See_Comment [Automated messa ge] The system which generated this result transmitted reference range: 80.0-99.0 fL. The reference range was not used to interpret this result as normal/abnormal. MONOCYTES (test code = 18988-3) 9.0 % NEUTROPHILS (test code = 61929-9) 65.0 % PLATELET COUNT (test code = 06420-5) 228 K/UL See_Comment [Automated messa ge] The system which generated this result transmitted reference range: 130-400 K/UL. The reference range was not used to interpret this result as normal/abnormal. RBC (test code = 99196-5) 4.50 M/UL See_Comment [Automated messa ge] The system which generated this result transmitted reference range: 3.80-5.40 M/UL. The reference range was not used to interpret this result as normal/abnormal. RDW (test code = 22236-7) 11.9 % See_Comment [Automated messa ge] The system which generated this result transmitted reference range: 11.5-15.0 %. The reference range was not used to interpret this result as normal/abnormal. WBC (test code = 80699-6) 8.1 K/UL See_Comment [Automated Blog[employer]era ge] The system which generated this result transmitted reference range: 3.5-11.0 K/UL. The reference range was not used to interpret this result as normal/abnormal. HEMOGLOBIN [id number] 00:00:00* Test Item Value Reference Range Interpretation Comme [facility] HEMOGLOBIN A1c (test code = 4548-4) 7.1 % See_Comment H [Automated [employer] ge] The system which generated this result transmitted reference range: 4.2-5.6 %. The reference range was not used to interpret this result as normal/abnormal. TSH REFLEX TO FREE [id number] 00:00:00* Test Item Value Reference Range Interpretation [facility] TO FREE T4 (test code = 80894-9) 2.680 UIU/ML See_Comment [Automated [employer]System[employer]] The system which generated this result transmitted reference range: 0.400-4.100 UIU/ML. The reference range was not used to interpret this result as normal/abnormal. LIPID PANEL WITH REFLEX DIRECT [id number] 00:00:00* Test Item Value Reference Range Interpretation [facility] CALC LDL CHOL (test code = 46095-8) 56 MG/DL See_Comment [Automated [employer] ge] The system which generated this result transmitted reference range: <100 MG/DL. The reference range was not used to interpret this result as normal/abnormal. CHOLESTEROL (test code = 2093-3) 150 MG/DL See_Comment [Automated [employer] ge] The system which generated this result transmitted reference range: <200 MG/DL. The reference range was not used to interpret this result as normal/abnormal. HDL CHOLESTEROL (test code = 2085-9) 77 MG/DL See_Comment [Automated [employer]] The system which generated this result transmitted reference range: >39 MG/DL. The reference range was not used to interpret this result as normal/abnormal. RISK RATIO LDL/HDL (test code = 64750-5) 0.73 RATIO See_Comment [Automated message] The system [...] this result as normal/abnormal. ALBUMIN/CREATININE RATIO, RANDOM [id number] 00:00:00* Test Item Value Reference Range Interpretation Comme nts ALBUMIN, URINE, RANDOM (test code = 12192-2) 0.6 MG/DL NOT ESTAB MG/DL CALC ALBUMIN/CREAT, RND (test code = 79208-3) 21 MG/G See_Comment [Automated messa ge] The system which generated this result transmitted reference range: <30 MG/G. The reference range was not used to interpret this result as normal/abnormal. CREATININE, URINE, CONC. (test code = 2161-8) 28.8 MG/DL NOT ESTAB MG/DL COMPREHENSIVE METABOLIC [id number] 00:00:00* Test Item Value Reference Range Interpretation [...] result as normal/abnormal. CALCIUM (test code = 13044-3) 10.2 MG/DL See_Comment [Automated messa ge] The [...] as normal/abnormal. CALC GLOBULIN (test code = 19170-8) 2.7 G/DL See_Comment [Automated messa ge] The [...] normal/abnormal. eGFR (2020 CKD-EPI) (test code = 11214-0) 75 ML/MIN/1.73 See_Comment [Automated messa ge] The [...]
[2023-10-27] MEDS ORDERED: NA CHLORIDE 0.9% 1,000 ML ONE (13:41)
[2023-10-27] MEDS ORDERED: NA CHLORIDE 0.9% 500 ML ONE (13:41)
[2023-10-27] MEDS ORDERED: MAGNESIUM SULFATE 1 gm IVPB 1 GM/100 ML BAG IV ONE (13:41)
[2023-10-27] MEDS ORDERED: METOPROLOL TAR 50 MG TAB ONE (13:46)
[2023-10-27] MEDS ORDERED: ADENOSINE 6 MG/ 2ML VIAL IV ONE (13:46)
[2023-10-27] MEDS ORDERED: METOPROLOL TARTRATE 5 MG/5 ML INJ IV ONE ×3 (13:46→15:45)
[2023-10-27 14:11] LABS: Absolute Basophils 0.1 K/uL (0-0.5); Absolute Eosinophils 0.1 K/uL (0-0.5); Absolute Lymphocytes (CBC) 1.4 K/uL (0.7-4.9); Absolute Monocytes 0.8 K/uL (0.1-1.3); Basophils % 0.7 % (0-1.3); Eosinophils % 0.8 % (0-4.4); Hematocrit 42.4 % (36.0-45.0); Lymphocytes % 19.6 % (15.3-44.8); MCHC 33.1 g/dL (32.0-36.0); MCV 93.8 fL (80-100); MPV 7.1 fL (7.6-11.3); Monocytes % 10.4 % (3.3-12.3); Neutrophils % 68.5 % (41.7-73.7); Platelets 256 thou/uL (152-406); RBC Red Blood Cell Count 4.52 M/uL (3.86-4.86); Red Cell Distribution Width 12.6 % (12.1-15.2)
[2023-10-27 14:16] LABS: PT Prothrombin Time 11.5 SECONDS (9.5-12.5); Protime INR 1.05
[2023-10-27] MEDS ORDERED: DIGOXIN 0.25 MG/ML AMP ONE (14:17)
[2023-10-27] MEDS ORDERED: ENOXAPARIN 60 MG/0.6 ML SQ ONE (14:17)
[2023-10-27] MEDS ORDERED: FAMOTIDINE 20 MG/2 ML VIAL IV ONE (14:17)
[2023-10-27 14:36] LABS: Albumin 3.7 g/dL (3.4-5.0); Albumin/Globulin Ratio 0.9 (1.1-1.8); Anion Gap 10.1 mEq/L (5.0-15.0); Bilirubin Direct 0.1 mg/dL (0-0.2); Bilirubin Indirect, Calculated 0.2 mg/dL (0.2-0.8); Bilirubin Total 0.3 mg/dL (0.2-1.0); Magnesium 1.9 mg/dL (1.6-2.4); Potassium 4.1 mEq/L (3.5-5.1); Protein, Total 7.7 g/dL (6.4-8.2); Thyroid Stimulating Hormone 2.05 uIU/mL (0.358-3.740); Troponin High Sensitivity 9.6 pg/mL (<58.9)
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
--- NOTE | 2023-10-27 14:36 | EDPHYS ---
Physician Documentation [facility] Name: Carol Guillory Age: 78 yrs Sex: Female : 1945 Arrival Date: 10/27/2023 Time: 13:26 Bed 2 Private MD: ED Physician Amos Nichols HPI: 10/26 13:49 This 78 yrs old Female presents to ER via Ambulatory with complaints of Heart aubrey palpitations. 13:49 The patient presents with a history of irregular heart beat, heart racing. Context: The aubrey symptoms occur at rest. Onset: The symptoms/episode began/occurred just prior to arrival, this morning. Duration: The patient or guardian reports a single episode, that is still ongoing. Modifying factors: The symptoms are aggravated by nothing. caffeine, The symptoms are alleviated by nothing. Associated signs and symptoms: The patient has no apparent associated signs or symptoms. Severity of symptoms: At their worst the symptoms were mild moderate in the emergency department the symptoms are unchanged. The patient has experienced similar episodes in the past, a few times. Historical: - Allergies: 13:33 No Known Allergies; ll1 - PMHx: 13:33 Diabetes - NIDDM; Hypertension; Hypothyroidism; ll1 - Immunization history:: Adult Immunizations up to date. - Social history:: Smoking status: Patient denies any tobacco usage or history of. - Family history:: not pertinent. ROS: 13:49 Constitutional: Negative for fever, chills, and weight loss, Eyes: Negative for injury, aubrey pain, redness, and discharge, ENT: Negative for injury, pain, and discharge, Neck: Negative for injury, pain, and swelling, Respiratory: Negative for shortness of breath, cough, wheezing, and pleuritic chest pain, Abdomen/GI: Negative for abdominal pain, nausea, vomiting, diarrhea, and constipation, Back: Negative for injury and pain, : Negative for injury, bleeding, discharge, and swelling, MS/Extremity: Negative for injury and deformity, Skin: Negative for injury, rash, and discoloration, Neuro: Negative for headache, weakness, numbness, tingling, and seizure, Psych: Negative for depression, anxiety, suicide ideation, homicidal ideation, and hallucinations, Allergy/Immunology: Negative for hives, rash, and allergies, Endocrine: Negative for neck swelling, polydipsia, polyuria, polyphagia, and marked weight changes, Hematologic/Lymphatic: Negative for swollen nodes, abnormal bleeding, and unusual bruising, 13:49 Cardiovascular: Positive for palpitations, Exam: 13:49 Constitutional: This is a well developed, well nourished patient who is awake, alert, aubrey and in no acute distress. Head/Face: Normocephalic, atraumatic. Eyes: Pupils equal round and reactive to light, extra-ocular motions intact. Lids and lashes normal. Conjunctiva and sclera are non-icteric and not injected. Cornea within normal limits. Periorbital areas with no swelling, redness, or edema. ENT: Nares patent. No nasal discharge, no septal abnormalities noted. Tympanic membranes are normal and external auditory canals are clear. Oropharynx with no redness, swelling, or masses, exudates, or evidence of obstruction, uvula midline. Mucous membranes moist. Neck: Trachea midline, no thyromegaly or masses palpated, and no cervical lymphadenopathy. Supple, full range of motion without nuchal rigidity, or vertebral point tenderness. No Meningismus. Chest/axilla: Normal chest wall appearance and motion. Nontender with no deformity. No lesions are appreciated. Respiratory: Lungs have equal breath sounds bilaterally, clear to auscultation and percussion. No rales, rhonchi or wheezes noted. No increased work of breathing, no retractions or nasal flaring. Abdomen/GI: Soft, non-tender, with normal bowel sounds. No distension or tympany. No guarding or rebound. No evidence of tenderness throughout. Back: No spinal tenderness. No costovertebral tenderness. Full range of motion. Female : Normal external genitalia. Skin: Warm, dry with normal turgor. Normal color with no rashes, no lesions, and no evidence of cellulitis. MS/ Extremity: Pulses equal, no cyanosis. Neurovascular intact. Full, normal range of motion. Neuro: Awake and alert, GCS 15, oriented to person, place, time, and situation. Cranial nerves II-XII grossly intact. Motor strength 5/5 in all extremities. Sensory grossly intact. Cerebellar exam normal. Normal gait. Psych: Awake, alert, with orientation to person, place and time. Behavior, mood, and affect are within normal limits. 13:49 Cardiovascular: Rate: tachycardic, actual rate is 138 bpm, Rhythm: regular, Pulses: Pulses are 4+ in bilateral radial, brachial, femoral, popliteal, posterior tibial and and dorsalis pedis arteries.. Heart sounds: normal, normal S1and S2, no S3 or S4, no murmur, no rub, no gallop, Edema: is not appreciated, JVD: is not appreciated, 13:49 ECG was reviewed by the Attending Physician. 14:36 ECG was reviewed by the Attending Physician. [facility] Vital Signs: 13:38 BP 153 / 98; Pulse 138; Resp 18; Temp 97.2; Pulse Ox 98% on R/A; Weight 49.9 kg; Height ll1 5 ft. 6 in. ; Pain 0/10; 13:57 BP 133 / 78; Pulse 124; Resp 18; Pulse Ox 97% ; ss 14:08 BP 133 / 78; Pulse 118; ss 15:22 BP 131 / 92; Pulse 120; Resp 16; Pulse Ox 98% on R/A; Pain 0/10; ss 15:47 BP 129 / 71; Pulse 112; Resp 17; Pulse Ox 98% on R/A; ss 13:38 Body Mass Index 17.75 (49.90 kg, 167.64 cm) ll1 13:38 Pain Scale: Adult ll1 15:22 Pain Scale: Adult ss MDM: 13:34 Patient medically screened. aubrey 13:56 Differential diagnosis: arrythmia, dehydration. Data reviewed: vital signs, nurses aubrey notes, lab test result(s), EKG, radiologic studies, plain films. Consideration of Admission/Observation Escalation of care including admission/observation considered. Test considered but Not performed: Ultrasound NO 2 D ECHO. Care significantly affected by the following chronic conditions: Diabetes, Hypertension, HYPOTHYROID. 10/26 13:35 Order name: Basic Metabolic Panel; Complete Time: 15:05 [facility] 10/26 13:35 Order name: CBC with Diff; Complete Time: 14:31 [facility] 10/26 13:35 Order name: LFT's; Complete Time: 15:05 [facility] 10/26 13:35 Order name: Magnesium; Complete Time: 15:05 [facility] 10/26 13:35 Order name: NT PRO-BNP; Complete Time: 15:05 [facility] 10/26 13:35 Order name: PT-INR; Complete Time: 14:31 [facility] 10/26 13:35 Order name: Troponin HS; Complete Time: 15:05 aubrey 10/26 13:35 Order name: TSH; Complete Time: 15:05 aubrey 10/26 15:31 Order name: CBC with Automated Diff EDMS 10/26 15:31 Order name: CBC with Automated Diff EDMS 10/26 15:31 Order name: Comprehensive Metabolic Panel EDMS 10/26 15:31 Order name: Comprehensive Metabolic Panel EDMS 10/26 15:31 Order name: Lipid Profile EDMS 10/26 15:31 Order name: Lipid Profile EDMS 10/26 15:31 Order name: Magnesium EDMS 10/26 15:31 Order name: Magnesium EDMS 10/26 15:31 Order name: NT PRO-BNP EDMS 10/26 15:31 Order name: NT PRO-BNP EDMS 10/26 15:31 Order name: Phosphorus EDMS 10/26 15:31 Order name: Phosphorus EDMS 10/26 15:31 Order name: Troponin High Sensitivity EDMS 10/26 15:31 Order name: Troponin High Sensitivity EDMS 10/26 15:31 Order name: Troponin High Sensitivity EDMS 10/26 13:35 Order name: XRAY Chest (1 view); Complete Time: 15:05 aubrey 10/26 15:31 Order name: Echo with Doppler EDMS 10/26 13:35 Order name: EKG; Complete Time: 13:36 aubrey 10/26 15:31 Order name: CONS Physician Consult EDMS 10/26 13:35 Order name: Cardiac monitoring; Complete Time: 13:39 aubrey 10/26 13:35 Order name: EKG - Nurse/Tech; Complete Time: 13:39 [facility] 10/26 13:35 Order name: IV Saline Lock; Complete Time: 13:53 aubrey 10/26 13:35 Order name: Labs collected and sent; Complete Time: 13:53 [facility] 10/26 13:35 Order name: O2 Per Protocol; Complete Time: 13:39 aubrey 10/26 13:35 Order name: O2 Sat Monitoring; Complete Time: 13:39 [facility] EC:49 Rate is 153 beats/min. Rhythm is regular. QRS Calvin is Normal. WI interval is normal. aubrey QRS interval is normal. QT interval is normal. No Q waves. T waves are Normal. No ST changes noted. Clinical impression: Atrial Flutter and SVT. Interpreted by me. Reviewed by me. 14:36 Rate is 153 beats/min. Rhythm is irregularly irregular. QRS Calvin is Normal. WI interval aubrey is normal. QRS interval is normal. QT interval is normal. No Q waves. T waves are Normal. No ST changes noted. Clinical impression: Atrial Fibrillation and No evidence of ischemia. Interpreted by me. Reviewed by me. Administered Medications: 13:50 Drug: NS 0.9% IV 500 ml IV at bolus once Route: IV; Rate: bolus; Site: right ss antecubital; 14:15 Follow up: IV Status: Completed infusion; IV Intake: 500ml ss 13:50 Not Given (Other Intervention Used): metoprolol5 mg IVP once; Hold for SBP <100 or HR ss <60. 13:50 Drug: Metoprolol IVP 2.5 mg IVP once Route: IVP; Site: right antecubital; ss 15:24 Follow up: Response: No adverse reaction ss 13:51 Drug: Magnesium Sulfate IVPB 1 grams IVPB once over 1 hrs Route: IVPB; Infused Over: 1 ss hrs; Site: left forearm; 14:50 Follow up: IV Status: Completed infusion; IV Intake: 100ml ss 13:51 Drug: Metoprolol PO 50 mg PO once Route: PO; ss 15:23 Follow up: Response: No adverse reaction ss 13:57 Drug: Metoprolol IVP 2.5 mg IVP once Route: IVP; Site: right antecubital; ss 15:24 Follow up: Response: No adverse reaction ss 14:13 Not Given (Duplicate Order): adenocard6 mg IVP once aubrey 14:30 Drug: NS 0.9% IV 1000 ml IV at 125 ml/hr continuous Route: IV; Rate: 125 ml/hr; Site: ss left forearm; 17:20 Follow up: IV Status: Infusion continued upon admission ss 15:18 Drug: Famotidine IVP 20 mg IVP once; dilute with 10 mL 0.9% NaCl; give over 2 minutes ss Route: IVP; Site: right forearm; 15:47 Follow up: Response: No adverse reaction ss 15:20 Drug: Metoprolol IVP 5 mg IVP once; Hold for SBP <100 or HR <60. Route: IVP; Site: ss right forearm; 15:47 Follow up: Response: No adverse reaction; No change in condition ss 15:22 Drug: Enoxaparin Sub-Q 1 mg/kg Sub-Q once Route: Sub-Q; Site: right lower abdomen; ss 15:47 Follow up: Response: No adverse reaction ss 15:23 Drug: Digoxin IVP 0.5 mg IVP once Route: IVP; Site: right forearm; ss 15:47 Follow up: Response: No adverse reaction ss 16:00 Drug: Metoprolol IVP 5 mg IVP once; Hold for SBP <100 or HR <60. Route: IVP; Site: ss right forearm; 17:19 Follow up: Response: No adverse reaction ss Disposition Summary: 10/27/23 14:36 Hospitalization Ordered Notes: Hospitalization Status: Observation aubrey Provider: Teresa Galvan cha Location: Telemetry/MedSurg (observation) aubrey Condition: Fair aubrey Problem: new aubrey Symptoms: have improved aubrey Bed/Room Type: Standard aubrey Room Assignment: 221(10/27/23 15:54) ll1 Diagnosis - Persistent atrial fibrillation - with RVR aubrey - Palpitations aubrey - Type 2 diabetes mellitus with hyperglycemia aubrey Forms: - Medication Reconciliation Form aubrey - SBAR form aubrey - Leadership Thank You Letter aubrey Signatures: Dispatcher [employer] EDMS Amos Nichols MD MD cha Blanchard, Shelby, RN RN ss Rubens Jennings RN RN ll1 Corrections: (The following items were deleted from the chart) 13:36 13:36 BASIC METABOLIC PANEL+C.LAB.BRZ ordered. EDMS EDMS 13:36 13:36 CBC+H.LAB.BRZ ordered. EDMS EDMS 13:36 13:36 HEPATIC FUNCTION+C.LAB.BRZ ordered. EDMS EDMS 13:36 13:36 MAGNESIUM+C.LAB.BRZ ordered. EDMS EDMS 13:36 13:36 PROBNP+C.LAB.BRZ ordered. EDMS EDMS 13:36 13:36 PROTIME (+INR)+COAG.LAB.BRZ ordered. EDMS EDMS 13:36 13:36 Troponin High Sensitivity+C.LAB.BRZ ordered. EDMS EDMS 13:36 13:36 THYROID STIMULAT HORMONE+C.LAB.BRZ ordered. EDMS EDMS 15:54 14:36 aubrey ll1
--- NOTE | 2023-10-27 14:46 | RAD REPORT ---
EXAM DESCRIPTION: Katherinet Single View10/27/2023 2:36 pm CLINICAL HISTORY: Chest pain COMPARISON: August 2023 FINDINGS: Patient's known right upper lobe nodule partially obscured by overlying artifact Lungs appear clear of acute infiltrate Heart is normal size. COPD
[2023-10-27] MEDS ORDERED: ONDANSETRON 4 MG/2 ML VIAL IV PRN (15:22)
[2023-10-27] MEDS ORDERED: ACETAMINOPHEN 500 MG TAB PO PRN (15:22)
[2023-10-27 18:20] VITALS: BMI 17.7
[2023-10-27] MEDS: NA CHLORIDE 0.9% 1,000 ML IV SCH (18:33)
[2023-10-27] MEDS: AMIODARONE HCL 900 MG in Dextrose 5%-Water 482 ML IV SCH (18:33)
[2023-10-27] MEDS: LOSARTAN POTASSIUM 50 MG TABLET PO SCH (22:16)
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
[2023-10-28] MEDS: LEVOTHYROXINE SOD 0.05 MG TABLET PO SCH (05:31)
[2023-10-28] MEDS ORDERED: METOPROLOL TAR 25 MG TAB PO SCH (06:00)
[2023-10-28] MEDS: METOPROLOL TAR 25 MG TAB PO SCH (06:24)
[2023-10-28 07:39] LABS: Absolute Eosinophils 0.1 K/uL (0-0.5); Absolute Lymphocytes (CBC) 0.9 K/uL (0.7-4.9); Absolute Monocytes 0.6 K/uL (0.1-1.3); Absolute Neutrophil 3.1 K/uL (1.8-8.0); Basophils % 0.9 % (0-1.3); Eosinophils % 2.2 % (0-4.4); Hemoglobin 13.9 g/dL (12.0-15.0); Lymphocytes % 18.9 % (15.3-44.8); MCH 31.7 pg (27.0-35.0); MCV 93.3 fL (80-100); MPV 7.2 fL (7.6-11.3); Monocytes % 13.2 % (3.3-12.3); Neutrophils % 64.8 % (41.7-73.7); Nucleated Red Blood Cells % 0.1 % (0-0); Platelets 184 thou/uL (152-406); RBC Red Blood Cell Count 4.39 M/uL (3.86-4.86)
[2023-10-28 07:44] LABS: Albumin 3.1 g/dL (3.4-5.0); Bilirubin Total 0.4 mg/dL (0.2-1.0); Globulin 3.1 g/dL (2.3-3.5); Magnesium 1.9 mg/dL (1.6-2.4); Phosphorus 2.6 mg/dL (2.5-4.9); Protein, Total 6.2 g/dL (6.4-8.2)
--- NOTE | 2023-10-28 08:51 | P.PN ---
Subjective Date of Service: 10/28/23 Chief Complaint: Atrial fibrillation with rapid ventricular response Subjective: No C/O voiced <Mena Hidalgo - Last Filed: 10/28/23 08:49> Date of Service: 10/28/23 <Robert Umañayvroseharoldoomar C - Last Filed: 10/28/23 14:06> Review of Systems 10-point ROS is otherwise unremarkable General: As per HPI Cardiovascular: As per HPI Neurological: As per HPI <Mena Hidalgo - Last Filed: 10/28/23 08:49> Physical Examination - Vital Signs Temperature: 97.7 F Blood Pressure: 112/73 Pulse: 85 Respirations: 15 Pulse Ox (%): 94 - Physical Exam General: In no apparent distress HEENT: Normocephalic Neck: JVD not distended Respiratory: Normal air movement Cardiovascular: Irregular heart rate/rhythm Capillary refill: <2 Seconds Gastrointestinal: Soft and benign Musculoskeletal: No clubbing Integumentary: No rashes Neurological: Normal tone Lymphatics: No axilla or inguinal lymphadenopathy External genitalia: Deferred Rectal: Deferred - Studies Laboratory Data (last 24 hrs) 10/27/23 10/27/23 10/27/23 13:49 13:49 13:49 WBC 7.30 Hgb 14.0 Hct 42.4 Plt Count 256 PT 11.5 INR 1.05 Sodium 132 L Potassium 4.1 BUN 19 H Creatinine 0.88 Glucose 267 H Magnesium 1.9 Total Bilirubin 0.3 AST 28 ALT 32 Alkaline Phosphatase 75 <Mena Hidalgo - Last Filed: 10/28/23 08:49> - Studies Laboratory Data (last 24 hrs) 10/27/23 10/27/23 10/27/23 13:49 13:49 13:49 WBC 7.30 Hgb 14.0 Hct 42.4 Plt Count 256 PT 11.5 INR 1.05 Sodium 132 L Potassium 4.1 BUN 19 H Creatinine 0.88 Glucose 267 H Magnesium 1.9 Total Bilirubin 0.3 AST 28 ALT 32 Alkaline Phosphatase 75 <Robert Umañabarbi Tristan - Last Filed: 10/28/23 14:06> Assessment And Plan - Plan - Problems (Diagnosis) (1) Atrial fibrillation with rapid ventricular response Current Visit: Yes Status: Acute (2) HTN (hypertension) Current Visit: Yes Status: Acute (3) DM2 (diabetes mellitus, type 2) Current Visit: Yes Status: Acute - Plan Plan: 1. Continue with amiodarone drip 2. Cardiology consultation 3. Echocardiogram 4. Thyroid studies 5. Monitor respiratory status 6. Strict blood pressure and sugar control 7. GI and DVT prophylaxis Discharge Plan: Home Plan to discharge in: Greater than 2 days - Advance Directives Does patient have a Living Will: No Does patient have a Durable POA for Healthcare: No - Code Status/Comfort Care Code Status Assessed: Yes Code Status: Full Code <Mena Hidalgo - Last Filed: 10/28/23 08:49> - Plan Pt seen and examined. I agree with the note by the CLINICAL ENGINEERING MANAGER. Cardiology stopped Amiodarone drip. Will continue metoprolol 50mg po BID and aspirin. Pt will f/u with Tack Driller to consider NOAC and event monitor. Pt reports that she bruises easily. <Kath Umaña - Last Filed: 10/28/23 14:06>
[2023-10-28] MEDS: ASPIRIN 81 MG CHEWABLE TABLET PO SCH (09:00)
[2023-10-28] MEDS: AMLODIPINE 5 MG TAB PO SCH (09:12)
[2023-10-28] MEDS: ASPIRIN EC 81 MG TAB PO SCH (09:13)
--- NOTE | 2023-10-28 13:04 | P.CNS ---
Date of Consult: 10/28/23 Chief Complaint: Atrial fibrillation with rapid ventricular response History of Present Illness: patient with PMH of Atrial fibrillation, HTN presented with Palpitations, denies having any chest pain, no SOB, no CALVO, no syncope, she report having occasional palpitations but not lasting long as this time, was found in RVR. Allergies No Known Allergies Allergy (Verified 12/13/20 17:30) Home Medications: Losartan Potassium 50 mg PO BID 06/11/18 Metformin HCl [Glucophage*] 1,000 mg PO BIDWM 06/11/18 Pravastatin Sodium 20 mg PO DAILY 06/11/18 Levothyroxine [Synthroid*] 50 mcg PO [id number] 12/13/20 Amlodipine [Norvasc*] 2.5 mg PO DAILY 10/27/23 Aspirin 81 mg PO DAILY 10/27/23 Metoprolol Tartrate [Lopressor*] 50 mg PO BID 6AM 6PM 10/27/23 - Past Medical/Surgical History Diabetic: Yes -: Diabetes mellitus type 2 -: Hypertension -: Hyperlipidemia -: Hypothyroidism -: Atrial fibrillation -: Cervical polyps removed 2x Psychosocial/ Personal History: Patient is a . She lives with 2 adult grandchildren - Family History Mother Medical History: Cancer - Social History Smoking Status: Never smoker Alcohol use: No CD- Drugs: No Caffeine use: Yes Place of Residence: Home Review of Systems 10-point ROS is otherwise unremarkable Physical Examination Temp Pulse Resp BP Pulse Ox 97.7 F 59 15 150/80 H 94 10/28/23 08:50 10/28/23 09:12 10/28/23 08:50 10/28/23 09:12 10/28/23 08:50 General: Alert, Oriented x3 HEENT: Atraumatic Neck: Supple Respiratory: Clear to auscultation bilaterally Cardiovascular: No edema, Normal S1 S2 Gastrointestinal: Normal bowel sounds Laboratory Data (last 24 hrs) 10/27/23 10/27/23 10/27/23 13:49 13:49 13:49 WBC 7.30 Hgb 14.0 Hct 42.4 Plt Count 256 PT 11.5 INR 1.05 Sodium 132 L Potassium 4.1 BUN 19 H Creatinine 0.88 Glucose 267 H Magnesium 1.9 Total Bilirubin 0.3 AST 28 ALT 32 Alkaline Phosphatase 75 - Problems (1) HLD (hyperlipidemia) Current Visit: Yes Status: Acute Plan: Continue Lipitor 10 mg daily lipid panel in 3 months. (2) Atrial fibrillation with rapid ventricular response Current Visit: Yes Status: Acute Plan: patient is in sinus rhythm after amiodarone load ok to stop amiodarone continue Lopressor 50 mg po BID Discussed anticoagulation with patient but she metnion that she bruises easily and willing to try only ASA at this time. will need outpatient follow up with her miner to discuss NOAC and 30 days event monitor. (3) HTN (hypertension) Current Visit: Yes Status: Acute Plan: Continue Losartan and Norvasc.
--- NOTE | 2023-10-28 14:36 | ECHO ---
HEIGHT: 5 ft 6 in WEIGHT: 110 lb 0 oz DATE OF STUDY: 10/28/[address]: Teresa Galvan MD 2-DIMENSIONAL: YES M.MODE: YES DOPPLER: YES COLOR FLOW: YES TDS: PORTABLE: YES DEFINITY: BUBBLE STUDY: DIAGNOSIS: ATRIAL FIBRILLATION WITH RAPID VENTRICULAR RESPONSE CARDIAC HISTORY: CATHERIZATION: SURGERY: PROSTHETIC VALVE: PACEMAKER: MEASUREMENTS (cm) DIASTOLIC (NORMALS) SYSTOLIC (NORMALS) IVSd 0.8 (0.6-1.2) LA Diam 3.0 (1.9-4.0) LVEF 70% LVIDd 4.0 (3.5-5.7) LVIDs 2.4 (2.0-3.5) %FS 39% LVPWd 0.9 (0.6-1.2) Ao Diam 2.3 (2.0-3.7) 2 DIMENSIONAL ASSESSMENT: RIGHT ATRIUM: NORMAL LEFT ATRIUM: NORMAL RIGHT VENTRICLE: NORMAL LEFT VENTRICLE: NORMAL TRICUSPID VALVE: MILD TRICUSPID REGURGITATION MITRAL VALVE: MILD MITRAL REGURGITATION PULMONIC VALVE: NORMAL AORTIC VALVE: NORMAL PERICARDIAL EFFUSION: NONE AORTIC ROOT: NORMAL LEFT VENTRICULAR WALL MOTION: NORMAL DOPPLER/COLOR FLOW: SEE BELOW COMMENTS: 1. NORMAL LEFT VENTRICULAR EJECTION FRACTION 60-65% WITH NORMAL WALL MOTION 2. MILD MITRAL REGURGITATION 3. MILD TRICUSPID REGURGITATION 4. MILD AORTIC INSUFFICIENCY TECHNOLOGIST: KYLIE SOLIMAN
--- NOTE | 2023-10-28 14:40 | EKG ---
Test Date: 2023-10-27 Test Time: 14:23:41 Market Research Intern: ELAINE MEASUREMENT RESULTS: Intervals: Rate: 100 [place]: QRSD: 72 QT: 338 QTc: 436 [place]: P: GA: QRS: 90 T: 106 INTERPRETIVE STATEMENTS: Atrial fibrillation Rightward axis Cannot rule out Anterior infarct, age undetermined Abnormal ECG Compared to ECG 10/27/2023 13:42:13 Supraventricular tachycardia no longer present Myocardial infarct finding still present Electronically Signed On 10-28-23 14:37:52 CDT by Joseph Breen
--- NOTE | 2023-10-28 14:41 | EKG ---
Test Date: 2023-10-27 Test Time: 13:42:13 Spring Tester: MARIYA MEASUREMENT RESULTS: Intervals: Rate: 153 [place]: QRSD: 80 QT: 264 QTc: 421 [place]: P: OR: QRS: 92 T: 40 INTERPRETIVE STATEMENTS: Supraventricular tachycardia Rightward axis Anterior infarct, age undetermined Abnormal ECG Compared to ECG 03/19/2021 02:25:59 Right-axis deviation now present Myocardial infarct finding now present Sinus rhythm no longer present Electronically Signed On 10-28-23 14:37:55 CDT by Joseph Breen
[2023-10-28 14:49] VITALS: O2SAT 96
--- NOTE | 2023-10-28 15:22 | RAD REPORT ---
EXAM DESCRIPTION: RAD - Foot Right 2 View - 10/28/2023 3:16 pm CLINICAL HISTORY: right foot pain COMPARISON: No comparisons FINDINGS: Soft tissue swelling is seen affecting the midfoot. Large posterior and plantar calcaneal spur. No acute fracture or dislocation seen. IMPRESSION: Large posterior and plantar calcaneal spur.
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
[2023-10-28 19:00] VITALS: BP 163/65; TEMP 98.1
[2023-10-28] MEDS ORDERED: METOPROLOL TAR 50 MG TAB PO SCH (21:00)
[2023-10-28] MEDS ORDERED: GLUCERNA SHAKE 237 ML CAN PO SCH (21:00)
[2023-10-28] MEDS ORDERED: ATORVASTATIN 10 MG TAB PO SCH (21:00)
--- NOTE | 2023-10-30 13:10 | EKG ---
Test Date: 2023-10-28 Test Time: 05:51:11 System Specialist: MAINE MEASUREMENT RESULTS: Intervals: Rate: 61 [place]: 158 QRSD: 72 QT: 430 QTc: 432 [place]: P: 68 [place]: 158 QRS: 48 T: 63 INTERPRETIVE STATEMENTS: Normal sinus rhythm Normal ECG Compared to ECG 10/27/2023 14:23:41 Atrial fibrillation no longer present Right-axis deviation no longer present Myocardial infarct finding no longer present Electronically Signed On 10-30-23 13:07:57 CDT by Joseph Breen
== END 2023-10-28 18:44 | disposition home or self-care (01) | DRG 310 ==
LOC: ER 13:26 → ERHOLD 15:22 → 2ND 17:08
PROVIDERS: ADMIT Hospitalist; ATTEND Hospitalist
DX: I48.19 Other persistent atrial fibrillation (principal); I10 Essential (primary) hypertension; E03.9 Hypothyroidism, unspecified; M79.671 Pain in right foot; E11.65 Type 2 diabetes mellitus with hyperglycemia; Z79.82 Long term (current) use of aspirin; Z79.01 Long term (current) use of anticoagulants; Z79.84 Long term (current) use of oral hypoglycemic drugs; Z79.890 Hormone replacement therapy; Z79.899 Other long term (current) drug therapy
CPT/HCPCS: 36415; 71045; 72170; 80048; 80053; 80061; 80076; 82947; 83735; 83880; 84100; 84443; 84484; 85025; 85610; 93005; 93306; 96372; 99283; 99285; J0153; J0282; J1160; J1650; J3475; J7030; J7040; J7060